=== PATIENT | female | born 1955 | race Caucasian/White ===

== ENCOUNTER → 2020-12-24 03:08 | Outpatient (CLI) | payer MEDICARE, SELFPAY ==
[2020-12-25 01:36] LABS: SARS-CoV-2 RNA PCR Negative
== END ==
PROVIDERS: PCP Internal Medicine; Visit Provider Internal Medicine Gastroenterology
DX: Z01.812 Encounter for preprocedural laboratory examination (principal); Z20.822 Contact with and (suspected) exposure to COVID-19
CPT/HCPCS: C9803; U0003; U0005

== ENCOUNTER 2020-12-28 01:31 | Day surgery (SDC) | payer MEDICARE, SELFPAY ==
[2020-12-16 14:51] VITALS: BMI 32.5
--- NOTE | 2020-12-27 16:32 | PM.HPGS ---
History of Present Illness History of Present Illness Consent: Risks, benefits, and alternatives have been discussed and questions answered. Patient agrees to proceed with procedure. Chief complaint: hx of colon polyps Narrative: Jenna Gillette is a 65 year old female with a history of colon polyps. She had a large sessile polyp and several smaller polyps removed 2 years ago . Review of Systems Review of Systems: All systems reviewed & are unremarkable except as noted in HPI and below PMFSH Social History Social History Smoking packs per day: 1 Smoking cigarettes per day: 20.0 Years smoked: 33 Smoking pack-years: 33.00 Smoking status: Current every day smoker Tobacco type: cigarettes Living arrangements: with family Gender identity (if verbalized by the patient): Female Spiritual care concerns: No Meds Home Medications and Allergies Home Medications Medication Instructions Recorded Confirmed Type sodium,potassium,mag sulfates See Rx Instructions .ROUTE 11/29/20 Rx [Suprep Bowel Prep Kit] .COMPLEX #1 ml PreserVision AREDS-2 1 cap BYMOUTH BID 12/16/20 12/16/20 History amlodipine 5 mg PO DAILY 12/16/20 12/16/20 History carvedilol 12.5 mg PO BID 12/16/20 12/16/20 History fosinopril 40 mg PO DAILY 12/16/20 12/16/20 History hydrochlorothiazide 12.5 mg PO DAILY 12/16/20 12/16/20 History pravastatin 40 mg PO DAILY 12/16/20 12/16/20 History Allergies Allergy/AdvReac Type Severity Reaction Status Date / Time No Known Allergies Allergy Mild Verified 12/16/20 14:43 Exam Const: General: alert Orientation/consciousness: patient oriented x3 Resp: Auscultation: clear to auscultation bilaterally Cardio: Rhythm: regular rhythm GI: GI Palp: Yes Soft to palpation and No Tenderness to palpation present (GI) Neuro: General: patient oriented x3 Assessment and Plan Assessment and plan (1) Colon cancer screening: Code(s): Z12.11 - Encounter for screening for malignant neoplasm of colon Status: Acute Assessment and Plan: Colonoscopy with possible biopsy or polypectomy or cautery or injection of substances.
--- NOTE | 2020-12-28 07:47 | WPDANESEPPF ---
Anes - Initial Pre Proc Eval Procedure: Operation Date: 12/28/20 08:30 Proposed Procedures p Screening Colonoscopy - Tima Fields MD Date/Time: 12/28/20 07:47 Surgeon: Tima Fields MD Pre Op Diagnosis: hx of colon polyps Patient Data Age: 65 Gender: F Height: 1.73 m Weight: 97.2 kg Allergies Allergy/AdvReac Type Severity Reaction Status Date / Time No Known Allergies Allergy Mild Verified 12/28/20 07:47 Home Medications Medication Instructions Recorded Confirmed Type sodium,potassium,mag sulfates See Rx Instructions .ROUTE 11/29/20 Rx [Suprep Bowel Prep Kit] .COMPLEX #1 ml PreserVision AREDS-2 1 cap BYMOUTH BID 12/16/20 12/16/20 History amlodipine 5 mg PO DAILY 12/16/20 12/16/20 History carvedilol 12.5 mg PO BID 12/16/20 12/16/20 History fosinopril 40 mg PO DAILY 12/16/20 12/16/20 History hydrochlorothiazide 12.5 mg PO DAILY 12/16/20 12/16/20 History pravastatin 40 mg PO DAILY 12/16/20 12/16/20 History Patient hx anesthesia problems: none Family hx anesthesia problems: none [facility] Past Medical History Medical History (Updated 12/28/20 @ 07:48 by Andrew Love DO) Hyperlipidemia Hypertension Surgical History Surgical History (Updated 12/28/20 @ 07:48 by Andrew Love DO) History of tubal ligation Social History Social History Smoking packs per day: 1 Smoking cigarettes per day: 20.0 Years smoked: 33 Smoking pack-years: 33.00 Smoking status: Current every day smoker Tobacco type: cigarettes Living arrangements: with family Gender identity (if verbalized by the patient): Female Spiritual care concerns: No Anes - Eval Final PreProcedure Day of Procedure 12/28/20 07:47 Patient weight: obese Heart: regular rate and rhythm Lungs: clear to auscultation and normal air movement Airway: Mallampati scale class II Neurological: alert and oriented Last oral intake: >/= 8 hours ASA classification: III Emergent: no Anesthetic plan: proceed Anesthesia type and monitoring: general GIVS and standard monitoring Informed Consent: The patient's anesthetic plan and its attendant risks and benefits were discussed with the patient/family/POA. Questions were solicited and answers provided to the satisfaction of the patient/family/POA.
[2020-12-28 07:50] VITALS: BP 138/75; PULSE 76; RESP 16; TEMP 36.4; O2SAT 100; BMI 32.3
[2020-12-28] MEDS: LACTATED RINGERS 1,000 ML 150 ML IV CONT (07:57)
[2020-12-28 08:35] VITALS: BP 99/50; PULSE 72; RESP 18; O2SAT 98
[2020-12-28 08:45] VITALS: BP 90/58; PULSE 68; RESP 20; O2SAT 98
[2020-12-28 08:55] VITALS: BP 106/81; PULSE 67; RESP 19; O2SAT 98
== END 2020-12-28 09:05 | disposition home or self-care (01) ==
PROVIDERS: PCP Internal Medicine; Visit Provider Internal Medicine Gastroenterology
PROC: 0DJD8ZZ Inspection of Lower Intestinal Tract, Via Natural or Artificial Opening Endoscopic (ICD-10-PCS; CPT 45378; principal; 2020-12-28 08:30)
DX: Z12.11 Encounter for screening for malignant neoplasm of colon (principal); D12.2 Benign neoplasm of ascending colon; I10 Essential (primary) hypertension; E78.49 Other hyperlipidemia; F17.210 Nicotine dependence, cigarettes, uncomplicated; E66.9 Obesity, unspecified; Z68.32 Body mass index [BMI] 32.0-32.9, adult
CPT/HCPCS: 45385; 88305; C9803; J2704; J7120; U0003; U0005

== ENCOUNTER 2023-05-26 19:34 | Emergency (ER) | payer MEDICARE, SELFPAY ==
[2023-05-26] VITALS (10 sets, daily range): BP systolic 93–118; BP diastolic 57–63; PULSE 71–84; RESP 16–23; TEMP 36.7; O2SAT 98–100
--- NOTE | ~2023-05-26 | CT_ITS ---
EXAMINATION: CT abdomen pelvis w con DATE: 05/26/2023 20:51 INDICATION: abdominal pain, diarrhea TECHNIQUE: Computed tomography (CT) of the abdomen and pelvis was performed with 100 mL Omnipaque-350 intravenous contrast. Automated exposure control and iterative reconstruction technique were employe d. The dose-length product was 1429.32 mGy-cm. COMPARISON: None. FINDINGS: Lower thorax: Aortic, mitral, and coronary artery calcifications. Dependent atelectasis and scar. Liver: Normal. Biliary/Gallbladder: Gallbladder is normal. No bile duct dilation. Pancreas: Mild atrophy. Spleen: Normal. Adrenals:No mass. Kidneys: Mild perinephric stranding bilaterally. Curvilinear and linear densities in multiple bilater al renal calyces and the bilateral renal pelvises, may represent calcifications or more likely early contrast excretion. No hydronephrosis. No calcifications in the distal collecting system. Multiple bi lateral hypodensities, too small to characterize but most likely represent cysts. GI tract: No small or large bowel dilation. Appendix not confidently visualized. Mesentery/Peritoneum: No ascites, mass, or free air. Retroperitoneum: No mass. Pelvis: Gas bubble in the nondependent urinary bladder. No wall thickening/inflammation. Normal uteru s and bilateral ovaries. Soft Tissues: Uncomplicated appearing fat-containing supraumbilical and umbilical hernias. Bones: No acute osseous finding. IMPRESSION: Gas bubble in the urinary bladder, may be secondary to cystitis or recent catheterization. Otherwise, no acute abdominal pelvic process detected. Reviewed, dictated and finalized at location [facility] [employer] [employer] IMPRESSION: Gas bubble in the urinary bladder, may be secondary to cystitis or recent benito terization. Otherwise, no acute abdominal pelvic process detected.
[2023-05-26 19:53] LABS: Basophils Absolute Auto 0.1 K/mm3 (0.0-0.1); Basophils Percent Auto 0.4 % (0.2-1.2); Eosinophils Absolute Auto 0.2 K/mm3 (0-0.3); Eosinophils Percent Auto 1.4 % (0-4.4); Hematocrit 40.9 % (37.0-47.0); Immature Granulocyte Absolute 0.08 K/mm3 (0.00-0.031); Immature Granulocyte Percent A 0.5 % (0-0.5); Lymphocytes Absolute Auto 2.74 K/mm3 (0.9-3.2); Lymphocytes Percent Auto 17.2 % (18.3-44.2); Mean Corpuscular HGB Conc 31.8 g/dl (32-36); Mean Corpuscular Hemoglobin 29.8 pg (26-34); Mean Corpuscular Volume 93.8 fl (80-100); Mean Platelet Volume 10.8 fl (7.4-10.4); Monocytes Absolute Auto 1.9 K/mm3 (0.1-0.6); Monocytes Percent Auto 11.8 % (2.6-8.5); Neutrophils Percent Auto 68.7 % (45.5-73.1); Platelet Count Result 299 k/mm3 (150-375); Red Blood Count 4.36 M/mm3 (4.2-5.4); Red Cell Distribution Width 13.9 % (11.5-14.5)
[2023-05-26] MEDS: SODIUM CHLORIDE 0.9% IV 1,000 ML 999 ML IV CONT ×2 (20:10)
[2023-05-26] MEDS: ONDANSETRON INJ 4 MG/2 ML VIAL IV PUSH (20:10)
[2023-05-26 20:27] LABS: Alanine Aminotransferase 18 U/L (6-35); Albumin Level 3.9 g/dL (3.5-5.1); Alkaline Phosphatase 76 U/L (38-126); Anion Gap 6 mmol/L (8-16); Aspartate Amino Transferase 18 U/L (14-36); Bilirubin,Total 0.8 mg/dL (0.2-1.3); Blood Urea Nitrogen 12 mg/dL (7-17); Calcium 8.7 mg/dL (8.4-10.2); Carbon Dioxide 27 mmol/L (22-30); Chloride 102 mmol/L (98-107); Estimated CRCL calculation 75 ml/min; Estimated Glomerular Filt Rate > 60; Glucose 120 mg/dL (65-110); Lipase 70 U/L (23-300); Potassium 3.8 mmol/L (3.4-5.0); Sodium 135 mmol/L (137-145)
[2023-05-26 20:49] LABS: Lactic Acid Reflex 0.8 mmol/L (0.7-2.0)
--- NOTE | 2023-05-26 21:16 | ED.GENADULT ---
HPI - General Adult General Chief complaint: Nausea/Vomiting/Diarrhea Stated complaint: diarrhea Time Seen by Provider: 05/26/23 19:44 History of Present Illness HPI narrative: Patient is a 67-year-old female who presents emergency department with chief complaint of diarrhea. Patient reports for the last week she has been having multiple bouts of diarrhea patient reports that she has had some abdominal discomfort with this denies vomiting reports today she was getting lightheaded and felt as though she was going to pass out. Related Data Home Medications Medication Instructions Recorded Confirmed amlodipine 5 mg tablet 5 mg PO DAILY 12/16/20 12/16/20 carvedilol 12.5 mg tablet 12.5 mg PO BID 12/16/20 12/16/20 fosinopril 40 mg tablet 40 mg PO DAILY 12/16/20 12/16/20 hydrochlorothiazide 12.5 mg capsule 12.5 mg PO DAILY 12/16/20 12/16/20 mecobalamin (vitamin B12) 500 mcg mcg PO 04/25/23 chewable tablet multivitamin with minerals-folic tablet PO 04/25/23 acid 0.4 mg tablet (One-A-Day Women's 50 Plus) rosuvastatin 20 mg tablet 20 mg PO DAILY 04/25/23 vitamins A,C,J-hnsa-nqloev 4,296 1 cap PO BID 04/25/23 mcg-226 mg-90 mg capsule (PreserVision AREDS) Allergies Allergy/AdvReac Type Severity Reaction Status Date / Time No Known Allergies Allergy Mild Verified 05/26/23 19:40 Review of Systems Review of Systems: A 10 system review of systems was completed on the patient and is negative except for what is stated in the HPI. Nursing and ancillary documentation was reviewed. [facility] Past Medical History Medical History Hyperlipidemia Hypertension Macular degeneration Surgical History Surgical History History of tubal ligation Family History Family History Mother Hypertension Cancer Father Hypertension Cancer Sibling Hypertension Cancer Social History Social History Smoking packs per day: 1 Smoking cigarettes per day: 20.0 Years smoked: 33 Smoking pack-years: 33.00 Smoking status: Current every day smoker Tobacco type: cigarettes Alcohol intake: never Substance use type: does not use Do You Feel Safe in your Home?: Yes Lack of Transportation: No Lack of Food: Never True Current Housing: I Have Housing Concerned About Future Housing: No Difficulty Paying Gas/Electric Bills: No Difficulty Paying for Meds: No Currently Unemployed: No Education: Associate Degree Difficulty w/ Childcare or Family Care: No Living arrangements: with family Occupation/Education: retired Gender identity (if verbalized by the patient): Female Spiritual care concerns: No Exam Narrative: GENERAL: Well-appearing, well-nourished, and in no acute distress. HEAD: Normocephalic, atraumatic. EYES: PERRLA and EOMI. ENT: Nares clear, no rhinorrhea or epistaxis. Mucous membranes moist. NECK: Supple. CHEST: Clear to auscultation. No respiratory distress. HEART: Regular rate and rhythm. No murmur heard. Normal peripheral pulses. ABDOMEN: Soft, mild tenderness to palpation, nondistended, normal active bowel sounds. EXTREMITIES: Normal range of motion. No edema. SKIN: Warm, dry, no rash. NEURO: No focal deficits. Alert and oriented x3. PSYCH: Normal mood and affect. Course Vital Signs Vital signs: Vital Signs Temperature 36.7 C 05/26/23 19:32 Pulse Rate 76 05/26/23 19:32 Respiratory Rate 19 05/26/23 19:32 Blood Pressure 118/63 05/26/23 19:32 Pulse Oximetry 99 05/26/23 19:32 Oxygen Delivery Room Air 05/26/23 19:32 Temperature 36.7 C 05/26/23 19:32 Pulse Rate 84 05/26/23 21:45 Respiratory Rate 18 05/26/23 21:45 Blood Pressure 115/62 05/26/23 21:16 Pulse Oximetry 100 05/07
[2023-05-26 21:41] LABS: Appearance Urine Clear (Clear); Bacteria Urine None Seen /hpf; Bilirubin Urine Negative (Negative); Blood Urine Negative (Negative); Color Urine Yellow (Yellow); Glucose Urine UA Negative (Negative); Ketones Urine Negative (Negative); Leukocyte Esterase Ur 2+ LEU/UL (Negative); Nitrate Urine Negative (Negative); Non Pathogenic Casts 0-2; Protein Urine Negative (Negative); Specific Grav Ur 1.027 (1.001-1.035); Squamous Epithelial Cell Urine None seen /hpf (Few); Urobilinogen Urine 0.2 mg/dL (<2.0); WBC Urine 21-50 /hpf; pH Urine 7.5 (5.0-9.0)
[2023-05-26 22:07] LABS: Add Urine Microscopic? YES
[2023-05-26] MEDS: CIPROFLOXACIN 500 MG TAB PO (22:41)
== END 2023-05-26 22:47 | disposition home or self-care (01) ==
PROVIDERS: Emergency Provider Emergency Medicine; PCP Internal Medicine
DX: N39.0 Urinary tract infection, site not specified (principal); R19.7 Diarrhea, unspecified; E78.5 Hyperlipidemia, unspecified; I10 Essential (primary) hypertension; H35.30 Unspecified macular degeneration; F17.210 Nicotine dependence, cigarettes, uncomplicated
CPT/HCPCS: 36415; 74177; 80053; 81001; 83605; 83690; 85025; 87086; 96361; 96374; 99284; A9270; J2405; J7030; Q9967

== ENCOUNTER 2024-10-18 12:59 | Outpatient (CLI) | payer MEDICARE, SELFPAY ==
--- NOTE | ~2024-10-18 | XR_ITS ---
Lumbosacral Spine: AP and lateral views Clinical History: Pain Findings: There is dextroscoliosis, apex at L2. There is moderate to advanced degenerative tearing th roughout the lumbar spine. There is moderate to dense facet arthropathy throughout the lumbar spine, worst from L3 through S1. The sacroiliac joints are normally outlined. Impression: Advanced degenerative spondylosis, as above, with associated dextro scoliosis. Reviewed, dictated and finalized at location M. Impression: Advanced degenerative spondylosis, as above, with associated dextro scoliosis.
--- OUTSIDE RECORDS SUMMARY | 2024-10-18 13:05 | XMS_ITS | Encounter Summary ---
Author Organization [facility] Address [address] [place] [address] Care Team Providers Care [employer] E[employer]ctor Name Role Phone Laith Kumar MD Primary Care Provider [phone] Encounter Details Date Type Department Care Team (Late st Contact Info) Description 10/03/2022 Lab Requisition [facility] - DermPath Lab [address] [place] [id number] Stan Mckeon MD [address] [place] [address] Social History Tobacco Use Types Packs/Day Years Used Date Smoking Tobacco: Never Assessed Comments Unknown Sex and Gender Information Value Date Recorded Sex Assigned at Not on file Legal Sex Female 6:03 PM [employer]IN[employer] Gender Identity Not on file Sexual Orientation Not on file documented as of this encounter Plan of Treatment Not on file documented as of this encounter Procedures Procedure Name Priority Date/Time Associated Diagnosis Comments DERMATOPATHOLOGY Routine 10/02/2022 12:0 0 AM CDT documented in this encounter Results * DERMATOPATHOLOGY (10/02/2022 12:00 AM CDT) Case Report Dermatopathology Report Case: [id number] Authorizing Provider: Stan Mckeon MD Collected: 10/02/2022 12:00 AM Ordering Location: [facility] DermPath Lab Received: 10/04/2022 06:40 AM Pathologist: Harmony Dempsey MD Specimens: A) - Skin, left frontal scalp B) - Skin, right occipital scalp 12:30 PM CDT DERMATOPATHOLOGY LABORATORY Final Diagnosis Specimen A. SKIN, left frontal scalp: BASAL CELL CARCINOMA, NODULAR TYPE (C44.41) Specimen B. SKIN, right occipital scalp: BASAL CELL CARCINOMA, NODULAR TYPE (C44.41) 3 12:30 PM CDT DERMATOPATHOLOGY LABORATORY at 1230 CDT Clinical History A: R/O BCC B: R/O Scar vs Marni vs BCC vs SCC 12:30 PM CDT DERMATOPATHOLOGY LABORATORY Gross Description Specimen A: Received is one formalin filled container labeled with the patient's name and designated left frontal scalp. The specimen consists of a shave biopsy measuring 9x10x2 mm. Jar 0. Specimen B: Received is one formalin filled container labeled with the patient's name and designated right occipital scalp. The specimen consists of a shave biopsy measuring 7x6x2 mm. Jar 0. 3 12:30 PM CDT DERMATOPATHOLOGY LABORATORY Microscopic Description Specimen A. SKIN, left frontal scalp: Within the dermis there are aggregates of basaloid cells with a high nuclear to cytoplasmic ratio and peripheral palisading. Specimen B. SKIN, right occipital scalp: Within the dermis there are aggregates of basaloid cells with a high nuclear to cytoplasmic ratio and peripheral palisading. 12:30 PM CDT DERMATOPATHOLOGY LABORATORY Disclaimer An external and internal positive and negative controls are appropriate for the histochemical, immunohistochemical and immunofluorescence stain(s) in this case (if any), except where stated explicitly. The performance characteristics of the stain(s) cited in this report were developed and its performance characteristic determined by the Dermatopathology Laboratory at [facility], directed by Dr. Jyotsna Escalona. These tests need not be, and therefore are not, approved by the [place] Food and Drug Administration. The tests are used for clinical purposes. Billing Codes Specimen Charges Stain Charges 50068 48925 1 1 3 12:30 PM CDT DERMATOPATHOLOGY LABORATORY Embedded Images 12:30 PM CDT DERMATOPATHOLOGY LABORATORY Pathology/Cytology TISSUE SPECIMEN FROM SKIN / Unknown 10/02/2022 10/04/2022 6:40 AM CDT Miscellaneous samples (specimen) TISSUE SPECIMEN FROM SKIN / Unknown 10/02/2022 10/04/2022 6:40 AM CDT Stan Mckeon MD LAB - PATHOLOGY/CYTOLOGY ORD ERABLES Final Result DERMATOPATHOLOGY LABORATORY [facility] - Department of Dermatology [facility] Medicine [address] [place] [address], [address] [phone] documented in this encounter Visit Diagnoses Not on filedocumented in this encounter Care Teams [employer] Relationship Specialty Start Date End Date Laith Kumar MD [address] [place] [address] [address] [place] [address] PCP - General 01/25/11 documented as of this encounter
--- OUTSIDE RECORDS SUMMARY | 2024-10-18 13:06 | XMS_ITS | CONTINUITY OF CARE DOCUMENT ---
Author Name anatoly ledbetter Address Unknown Organization [facility] Address [address] [place] [address] Phone [phone] Care Team Providers Care Clinical Professor Name Role Phone Nia GREY, Cedric Unavailable MILANA GREY, HAYLEY Unavailable MILANA GREY, HAYLEY Unavailable PROBLEMS Condition Status Date Provider Notes Palpitations active Cedric Kramer MD HTN essential active Cedric Kramer MD Hyperlipidemia active Cedric Kramer MD Hypertension active ? Cedric Kramer MD Tobacco abuse active Cedric Kramer MD Coronary arteriosclerosis active Cedric calderon MD Fatigue active Cedric Kramer MD Edema active Cedric Kramer MD Cardiology examination active Cedric Kramer MD Snoring active Cedric Kramer MD ENCOUNTERS Date Type Provider Location Encounter Diag nosis - In-person encounter Office Visit Cedric Kramer MD [facility] Cardiology examinationSnoring - In-person encounter Office Visit Cedric Kramer MD [facility] Edema - In-person encounter Office Visit Cedric Kramer MD [facility] - In-person encounter Office Visit Cedric Kramer MD [facility] - In-person encounter Office Visit Cedric Kramer MD [facility] Coronary arteriosclerosisFatigue - In-person encounter Office Visit Cedric Kramer MD [facility] - In-person encounter Office Visit Cedric Kramer MD [facility] - In-person encounter Office Visit Cedric Kramer MD [facility] - In-person encounter Office Visit Cedric Kramer MD [facility] - In-person encounter Office Visit Cedric Kramer MD [facility] PalpitationsHTN essentialHyperlipidemiaHypertensionTobacco abuse VITAL SIGNS Date Observation Value Provider Body Mass Index (Ratio) 34.21 kg/m2 Sarwat Kramer MD blood pressure, diastolic 87 mm[Hg] [facility], systolic 151 mm[Hg] [facility] oxygen saturation, oximetry 98 % [facility] pulse rate 67 /min [facility] respiratory rate E&M 12 /min [facility] weight E&M 225 [lb_av] [facility] height E&M 68 [in_i] [facility] blood pressure, cuff size regular [facility] Body Mass Index (Ratio) 33.30 kg/m2 Sarwat Kramer MD blood pressure, diastolic 79 mm[Hg] Li nkLogic blood pressure, systolic 135 mm[Hg] Penny kLog blood pressure, cuff size regular Aryan rret blood pressure, diastolic 79 mm[Hg] Ja rret blood pressure, systolic 135 mm[Hg] Jar ret pulse rate 68 /min Ilan oxygen saturation, oximetry 98 % respiratory rate E&M 16 /min Ilan weight E&M 219 [lb_av] Ilan y height E&M 68 [in_i] Ilan Cotterjohnnie y Body Mass Index (Ratio) 33.90 kg/m2 Sarwat Kramer MD blood pressure, diastolic -1 mm[Hg] Chayo josephLogsheba blood pressure, systolic 145 mm[Hg] Penny Castañedaogsheba blood pressure, diastolic 83 mm[Hg] Mihaela ck Shelley blood pressure, systolic 145 mm[Hg] Toshia Shelley oxygen saturation, oximetry 98 % Linsey Shelley pulse rate 85 /min Linsey Shelley weight E&M 223 [lb_av] Linsey Shelley blood pressure, cuff size large An ck Shelley height E&M 68 [in_i] Linsey Shelley Body Mass Index (Ratio) 33.90 kg/m2 Sarwat Kramer MD blood pressure, diastolic 62 mm[Hg] Ra tess Kramer MD blood pressure, systolic 124 mm[Hg] Elmer Conteh oxygen saturation, oximetry 97 % Carlee Conteh respiratory rate E&M 18 /min Cal Conteh pulse rate 75 /min Carlee Easton egan blood pressure, cuff size regular Pat Conteh weight E&M 223 [lb_av] Elmerryder Easton eagn height E&M 68 [in_i] Carlee egan Body Mass Index (Ratio) 33.14 kg/m2 Sarwat Kramer MD blood pressure, diastolic 78 mm[Hg] Chayo Francisco blood pressure, systolic 136 mm[Hg] Penny kLogic blood pressure, diastolic 78 mm[Hg] Sa ra Wasserman blood pressure, systolic 136 mm[Hg] Angeles a Wasserman oxygen saturation, oximetry 98 % Vera Wasserman respiratory rate E&M 17 /min Vera Si ms pulse rate 77 /min Vera Wasserman blood pressure, cuff size regular Sa ra Wasserman weight E&M 218 [lb_av] Vera Wasserman height E&M 68 [in_i] Vera Wasserman Body Mass Index (Ratio) 33.60 kg/m2 Sarwat Kramer MD blood pressure, diastolic 77 mm[Hg] David Campbell blood pressure, systolic 137 mm[Hg] Leslee Campbell blood pressure, cuff size regular Cy sal Campbell respiratory rate E&M 16 /min Amanda Campbell pulse rate 90 /min Amanda Jauregui l oxygen saturation, oximetry 97 % Amanda Campbell weight E&M 221 [lb_av] Amanda Colesbel l height E&M 68 [in_i] Amanda Sanketbel l Body Mass Index (Ratio) 32.99 kg/m2 Sarwat Kramer MD blood pressure, diastolic 87 mm[Hg] Ra tess Kramer MD blood pressure, systolic 152 mm[Hg] Quinn Kramer MD respiratory rate E&M 18 /min Tonsha Cohen oxygen saturation, oximetry 97 % Tonsha Cohen pulse rate 106 /min Tonsha Cohen weight E&M 217 [lb_av] Tonsha Cohen height E&M 68 [in_i] Tonsha Cohen Body Mass Index (Ratio) 32.54 kg/m2 Sarwat Kramer MD blood pressure, diastolic 82 mm[Hg] Da rere Ade blood pressure, systolic 154 mm[Hg] Dac ia Ade oxygen saturation, oximetry 97 % Michelle Ade respiratory rate E&M 16 /min Michelle V oss pulse rate 72 /min Michelle Ade weight E&M 214 [lb_av] Michelle Ade height E&M 68 [in_i] Michelle Ade Body Mass Index (Ratio) 32.20 kg/m2 Sarwat Kramer MD blood pressure, diastolic 86 mm[Hg] Shayan Joel blood pressure, systolic 159 mm[Hg] Shakila Joel oxygen saturation, oximetry 98 % Sherwin Joel respiratory rate E&M 18 /min Pranay Joel pulse rate 73 /min Sherwin Arcadio andrews weight E&M 211.8 [lb_av] Sherwin Raimundo davisbrittney height E&M 68 [in_i] Sherwin Arcadio andrews Body Mass Index (Ratio) 31.35 kg/m2 Sarwat Kramer MD blood pressure, resting Yes Luz Maria Joel blood pressure, diastolic 105 mm[Hg] Shayan Joel blood pressure, systolic 189 mm[Hg] Shakila Joel oxygen saturation, oximetry 97 % Sherwin Joel respiratory rate E&M 18 /min Pranay Joel pulse rate 103 /min Sherwin Steve andrews weight E&M 206.2 [lb_av] Sherwin pineda height E&M 68 [in_i] Sherwin Ervin lettybrittney ALLERGIES No Known Drug Allergies HISTORY OF MEDICATION USE Medication Status Instructions Dates Provider Indications Com ments rosuvastatin 20 mg tablet active Take 1 tablet by mouth once a day Ilan fosinopril 40 mg tablet active TAKE 1 TABLET BY MOUTH DAILY Shelly Rushirea carvedilol 12.5 mg tablet active TAKE 1 TABLET BY MOUTH TWICE DAILY Shelly Rushirea PRESERVISION AREDS 2+MULTI VIT CAPS active once a day Sherwin Eubanksenson carvedilol 12.5 mg tablet completed Take 1 tablet by mouth twice a day - Luis Nunn MULTIVITAMINS ORAL CAPSULE active 1 tablet once a day Sherwin Joel hydrochlorothiazide 12.5 mg capsule active 1 tablet once a day Sherwintejal Joel pravastatin 40 mg tablet completed 1 tablet once a day - Ilan fosinopril 40 mg tablet completed Take 1 tablet by mouth once a day - Luis Nunn SOCIAL HISTORY Date Observation Value Provider alcohol use no Cedric [place] passive cigarette sm jignesh exposure yes Cedric Kramer MD smoking/tobacco cess ation, patient education and counseling yes Cedric Kramer MD number of years as a smoker 30 a Cedric Kramer MD smoking history, tot al pack/day 1 Cedric Kramer MD cigarette use yes Cedric Kramer MD smoking status Current every day smoker R sal Kramer MD alcohol use no Cedric [place] passive cigarette sm jignesh exposure yes Cedric Kramer MD smoking/tobacco cess ation, patient education and counseling yes Cedric Kramer MD number of years as a smoker 30 a Cedric Kramer MD smoking history, tot al pack/day 1 Cedric Kramer MD cigarette use yes Cedric Kramer MD smoking status Current every day smoker R sal Kramer MD social history E&M Marital Statu s: C nathan: 2 O ccupation: Retired Smoking History: P atient currently smokes every day. P atient has been counseled to quit. Cedric Kramer MD social history reviewed E&M revi ewed - no changes required Cedric Kramer MD passive cigarette sm jignesh exposure yes Linsey Karsten smoking/tobacco cess ation, patient education and counseling yes Linsey Karsten number of years as a smoker 30 a Linsey Karsten smoking history, tot al pack/day 1 Linsey Karsten cigarette use yes Linsey Karsten smoking status Current every day smoker A rex Karsten social history reviewed E&M revi ewed - no changes required Cedric Kramer MD social history reviewed E&M revi ewed - no changes required Cedric Kramer MD social history E&M Marital Statu s: Kwame evans: 2 O ccupation: Retired Smoking History: P atient currently smokes every day. P atient has been counseled to quit. Cedric Kramer MD social history reviewed E&M revi ewed - no changes required Cedric Kramer MD passive cigarette sm jignesh exposure yes Amanda Adrian smoking/tobacco cess ation, patient education and counseling yes Amandareinaldo Campbell number of years as a smoker 30 a Amandareinaldo Campbell smoking history, tot al pack/day 1 Amanda Adrian cigarette use yes Amandasamantha almonte smoking status Current every day smoker Kwame yadiel Campbell social history E&M Marital Statu s: Kwame forrestyarelis: 2 O ccupation: Retired Smoking History: P atient currently smokes every day. P atient has been counseled to quit. Cedric Kramer MD social history reviewed E&M revi ewed - no changes required Cedric Kramer MD passive cigarette sm jignesh exposure yes Page Cohen smoking/tobacco cess ation, patient education and counseling yes [facility] number of years as a smoker 30 a [facility] smoking history, tot al pack/day 1 [facility] cigarette use yes [facility] smoking status Current every day smoker [facility] social history E&M Marital Statu s: Kwame evans: 2 O ccupation: Retired Smoking History: P atient currently smokes every day. P atient has been counseled to quit. Cedric Kramer MD social history reviewed E&M revi ewed - no changes required Cedric Kramer MD alcohol use no Michelle Ade smoking/tobacco cess ation, patient education and counseling yes Michelle Ade passive cigarette sm jignesh exposure yes Michelle Ade number of years as a smoker 30 a Michelle Ade smoking history, tot al pack/day 1 Michelle Ade cigarette use yes Michelle Ade smoking status Current every day smoker D ia [place] social history E&M Marital Statu s: Kwame evans: 2 O ccupation: Retired Smoking History: P atient currently smokes every day. P atient has been counseled to quit. Cedric Kramer MD social history reviewed E&M revi ewed - no changes required Cedric Kramer MD alcohol use no Sherwin sparrow smoking/tobacco cess ation, patient education and counseling yes Sherwin Joel passive cigarette sm jignesh exposure yes Sherwin Joel number of years as a smoker 30 a Sherwin Joel smoking history, tot al pack/day 1 Sherwin Joel cigarette use yes Sherwin pineda smoking status Current every day smoker M Joey Joel alcohol use no Cedric [place] passive cigarette sm jignesh exposure yes Cedric Kramer MD smoking/tobacco cess ation, patient education and counseling yes Cedric Kramer MD smoking history, tot al pack/day 1 Cedric Kramer MD social history E&M S moking History: P atient currently smokes every day. M arital Status: C nathan: 2 O ccupation: Retired Cedric Kramer MD social history reviewed E&M revi ewed - no changes required Cedric Kramer MD number of years as a smoker 30 a Sherwin Joel cigarette use yes Sherwin davisbrittney smoking status Current every day smoker M Joey Joel FAMILY HISTORY Family Member Condition Full Sister Family History of Di abetes: Full Brother Family History of Di abetes: INSURANCE PROVIDERS Payer name Policy type / Coverage type [place] red green party ID AARP [facility] ADVANTAGE PLAN 2 (HMO-POS) Medicare [id number] ADVANCE DIRECTIVES Name Date DISCUSSED - NO DECISION MADE TREATMENT PLAN Date Name Performer [id number],S, Cedric toure MD [id number],S, Cedric toure MD [id number],S, Cedric toure MD [id number],S, Cedric toure MD [id number],S, Cedric toure MD [id number],S, Cedric toure MD [id number],S, Cedric toure MD [id number],S,Stress test n ormal. Cedric Kramer MD [id number],N,Check ECHO fo r WMA and valves. Cedric Kramer MD [id number],S, Cedric toure MD [id number],S, Cedric toure MD [id number],N,H as calcified coronaries on CT scan. Needs stress test. Can't walk do to knee problems. Will get regadenoson. Cedric Kramer MD Cardiology Cedric Kramer MD Cardiology:10/08/24 Q uit 01/27 Cedric Kramer MD Cardiology:10/08/24 N o angina or history CAD. H as calcium on cors by CT scan L ast stress test negative Cedric Kramer MD Cardiology:10/08/24 H as venous insufficiency, but edema resolved with stopping amlodipine. No intervention needed. Cedric Kramer MD Cardiology:BP runnin g a bit high at home as well. S noman, has not had a sleep study W ill check sleep study, work on diet. No med changes at this time Cedric Kramer MD Cardiology Cedric Kramer MD Cardiology Cedric Kramer MD Cardiology Cedric Kramer MD Cardiology:Will check for venous insufficiency. Cedric Kramer MD Cardiology Cedric Kramer MD Cardiology Cedric Kramer MD Cardiology Cedric Kramer MD Cardiology Cedric Kramer MD Cardiology Cedric Kramer MD Cardiology Cedric Kramer MD Cardiology Cedric Kramer MD Cardiology:Stress test normal. R sal Kramer MD Cardiology:Check ECHO for WMA an d valves. Cedric Kramer MD Cardiology Cedric Kramer MD Cardiology Cedric Kramer MD Cardiology:Has calci fied coronaries on CT scan. Needs stress test. Can't walk do to knee problems. Will get regadenoson. Cedric Kramer MD Cardiology follow up Cedric bryan MD Cardiology follow up Cedric bryan MD Cardiology follow up Cedric bryan MD Cardiology follow up Cedric bryan MD Cardiology Cedric Kramer MD Cardiology Cedric Kramer MD Cardiology Cedric Kramer MD Cardiology Cedric Kramer MD Cardiology follow up Cedric bryan MD Cardiology follow up Cedric bryan MD Cardiology follow up Cedric bryan MD Cardiology follow up:Increase fo sinopril Cedric Kramer MD Cardiology Cedric Kramer MD Cardiology Cedric Kramer MD Cardiology:Increase fosinopril R sal Kramer MD Cardiology Cedric Kraemr MD Cardiology Cedric Kramer MD Cardiology Cedric Kramer MD Cardiology Cedric Kramer MD Cardiology Cedric Kramer MD Date Name Sleep Study Home Venous Doppler Bilat eral LE - Reflux Complete Echo Stress Regadenoson STR - Nuclear Mobile Cardiac Tele Complete Echo HISTORY OF PROCEDURES Procedure Date Procedure Name Provider Procedure Notes S tatus EKG Cedric Kramer MD complete d EKG Cedric Kramer MD complete d EKG Cderic Kramer MD complete d EKG Cedric Kramer MD complete d EKG Cedric Kramer MD complete d EKG Cedric Kramer MD complete d EKG Cedric Kramer MD complete d SNOMED-CT: 649018716 [id number] Current Medications Documented Cedric Kramer MD completed Event Monitor Cedric Kramer MD compl eted EKG Cedric Kramer MD complete d SNOMED-CT: [id number] [id number] Current Medications Documented Cedric Kramer MD completed
--- OUTSIDE RECORDS SUMMARY | 2024-10-18 13:06 | XMS_ITS | Clinical Summary ---
Author Organization [facility] Address [address] [place] [address] Care Team Providers Care Extracorporeal Circulation Specialist Name Role Phone Laith Kumar MD Primary Care Provider [phone] Source Comments [facility],non-owned Affiliates and Associated Physician Practices is amultiple site organization consisting of ambulatory clinics and hospital sitesin [place], [place], [place] and [place]. This disclosure is being madepursuant to the Care Everywhere program and may not contain all information available regarding this patient. 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 Gender Identity Not on file Sexual Orientation Not on file Plan of Treatment Health Maintenance Due Date Last Done Comments BONE DENSITY TESTING 1954 COLOGUARD (AGES 45-75) - COL ON CA SCREENING 1954 COLON MONITORING 1954 COLONOSCOPY - COLON CA SCREENING 1954 CT COLONOGRAPHY - COLON CA SCREENING 1954 Colorectal Cancer Screening 1954 FIT - COLON CA SCREENING 1954 FLEX SIG - COLON CA SCREENING 1954 LIPID TESTING 1954 MAMMOGRAM 1954 HEPATITIS C SCREENING 08/26/1972 DTAP/TDAP/TD VACCINES (1 - Tdap) 1973 PNEUMOCOCCAL VACCINE 50+ (1 of 1 - PCV) 2004 ZOSTER VACCINE (1 of 2) 2004 COVID-19 VACCINE (2023-2 5 season) 2024 DEPRESSION SCREENING 05/06/2024 MEDICARE AWV CALENDAR YEAR 2024 INFLUENZA VACCINE (Season Ended) 2025 Respiratory Syncytial Virus (RSV) Vaccine Pt: or over 60 yrs (1 - 1-dose 75+ series) 2029 HEPATITIS B VACCINE Aged Out No longe r eligible based on patient's age to complete this topic HIB VACCINE Aged Out No longer eligi ble based on patient's age to complete this topic HPV VACCINE Aged Out No longer eligi ble based on patient's age to complete this topic MENINGOCOCCAL (Group B) VACC INE SHARED DECISION-MAKING Aged Out No longer eligibl e based on patient's age to complete this topic MENINGOCOCCAL GROUPS A/C/Y/W VACCINE Aged Out No longer eligible b ased on patient's age to complete this topic Procedures Procedure Name Priority Date/Time Associated Diagnosis Comments DERMATOPATHOLOGY Routine 09/24/2024 1:02 PM CDT from Last 3 Months Results * DERMATOPATHOLOGY (09/24/2024 1:02 PM CDT) Case Report Dermatopathology Report Case: [id number] Authorizing Provider: Debby Yates MD Collected: 09/24/2024 01:02 PM Ordering Location: [facility] - Received: 09/25/2024 10:06 AM DermPath Lab Pathologist: Carlito Escalona MD Specimen: Skin, left abdomen 5:29 PM CDT DERMATOPATHOLOGY LABORATORY Final Diagnosis Specimen A. SKIN, left abdomen: JUNCTIONAL MELANOCYTIC NEVUS, IRRITATED (D22.5) POST-INFLAMMATORY PIGMENT ALTERATION (L81.9) 5:29 PM CDT DERMATOPATHOLOGY LABORATORY at 1729 CDT Clinical History Brown Papule Irregular color/border Nevus R/O MM 5:29 PM CDT DERMATOPATHOLOGY LABORATORY Gross Description Specimen A: Received is one formalin filled container labeled with the patient's name and designated left abdomen. The specimen consists of a shave biopsy measuring 8x6x1 mm. Jar 0. 5:29 PM CDT DERMATOPATHOLOGY LABORATORY Microscopic Description Specimen A. SKIN, left abdomen: There are nests of melanocytes at the dermal-epidermal junction. There is melanin pigment in the stratum corneum. Sections show abundant melanin within melanophages around the superficial vascular plexus. 5:29 PM CDT DERMATOPATHOLOGY LABORATORY Disclaimer An external and internal positive and negative controls are appropriate for the histochemical, immunohistochemical and immunofluorescence stain(s) in this case (if any), except where stated explicitly. The performance characteristics of the stain(s) cited in this report were developed and its performance characteristic determined by the Dermatopathology Laboratory at [facility], directed by Dr. Jyotsna Escalona. These tests need not be, and therefore are not, approved by the [place] Food and Drug Administration. The tests are used for clinical purposes. Billing Codes Specimen Charges Stain Charges 32257 1 5 5:29 PM CDT DERMATOPATHOLOGY LABORATORY Embedded Images 5:29 PM CDT DERMATOPATHOLOGY LABORATORY Pathology/Cytolo gy TISSUE SPECIMEN FROM SKIN / Unknown 09/24/2024 1:02 PM CDT 09/25/2024 10:06 AM CDT Debby Yates MD LAB - PATHOLOGY/CYTOLOGY ORD ERABLES Final Result DERMATOPATHOLOGY LABORATORY [facility] - Department of Dermatology Formerly [facility] [address] [place] [address], [address] [phone] from Last 3 Months Insurance [facility] MANAGED MEDICARE [address]V [address], [place] [address] MANAGED MEDICARE ADV [place] [id number] Care Teams Extracorporeal Circulation Specialist Relationship Specialty Start Date End Date Laith Kumar MD [address] [place] [address] [address] [place] [address] PCP - General 01/25/11
--- OUTSIDE RECORDS SUMMARY | 2024-10-18 13:06 | XMS_ITS | Data Portability ---
Author Organization [facility], Main Office Address [address] [place] [address] Care Team Providers Care Master Ship Name Role Phone HAYLEY KUMAR Primary Care Provider HAYLEY KUMAR Referring Provider Assessment No assessment recorded. Plan of Treatment Reminders Order Date Submit Date Provider Last Modified By Organization Details Last Modified Time Details Appointments None recorded. Lab lipid panel, serum 2024 025 [facility], [address], [place], [address], 5 06:02:42 CMP, serum or plasma 2024 025 [facility], [address], [place], [address], 5 06:02:44 CBC w/ auto diff 2024 025 [facility], [address], [place], [address], 5 06:02:45 TSH, serum or plasma 2024 025 [facility], [address], [place], [address], 5 06:02:47 T4, free, serum 2024 025 [facility], [address], [place], [address], 5 06:02:46 vitamin D, 25-hydroxy, total, serum 2023 024 [facility], [address], [place], [address], 4 06:54:09 lipid panel, serum 2023 024 [facility], [address], [address], [place], [address], 4 06:54:07 CMP, serum or plasma 2023 024 [facility], [address], [place], [address], 4 06:54:08 TSH, serum or plasma 2023 024 [facility], [address], [address], [place], [address], 4 06:54:09 T4, free, serum 2023 024 [facility], [address], [address], [place], [address], 4 06:54:09 CBC w/ auto diff 2023 024 [facility], [address], [address], [place], [address], 4 06:54:08 enteric bacteria, organism specific culture, stool 2023 024 [email or web address] [facility] (Lab), [address] [place], [address], 4 16:12:50 c diff toxin genes, qual, PCR, stool 2023 024 [email or web address] [facility] (Lab), [address] [place], [address], 4 07:07:26 O&P (ova & parasites), stool 2023 024 [facility] [address] [place], [address], 4 15:17:56 inflammator y bowel disease Ab panel, serum 2023 024 [facility], [address], [address], [place], [address], 4 18:37:32 CBC w/ auto diff 2023 024 [facility], [address], [address], [place], [address], 4 18:37:35 CMP, serum or plasma 2023 024 [facility], [address], [address], [place], [address], 4 18:37:34 lipid panel, serum 2023 024 [facility], [address], [address], [place], [address], 4 18:37:31 Referral None recorded. Procedures None recorded. Surgeries None recorded. Imaging None recorded. Medication Orders furosemide 20 mg tablet [email or web address] [place] [address] [facility], [address] [place], [address], 5 17:14:43 Patient TargetsNo targets recorded. Patient Instructions Encounter Date Encounter Id Patient Instructions Last Modified By Organization Details Last Modified Time 05/28/2023 [id number] dementia rating scale-2* Not available 05/28/2023 16:10:16 alcohol misuse* [email or web address] Not available 05/28/2023 16:10:16 depression screening* [email or web address] Not available 05/28/2023 16:10:16 Timed Up and Go test (TUG)* Not available 05/28/2023 16:10:16 multi-dimensiona l health assessment questionnaire* Not available 05/28/2023 16:10:16 Personalized Hea lt Plan and Screening Recommendations Advance Directives - Do you have one? No not interested at this time Advance Directives - Do we have your advance directive on file in your health record? Primary Prevention/Interven tion (prevents or decreases the chance of common diseases from occurring) Smoking Risk: Smoker Alcohol Misuse Screening: Negative Weight: Overweight try to lose 10% of your body weight Physical activity: Need more exercise/physical activity Nutrition: Average Eat heart healthy diet Fall Risk (screened today): Intermediate Vaccines Pneumococcal: Recommended today, but you have declined Influenza: Recommended today, but you have declined Chronic Disease Risks Stroke: Intermediate Risk Active diagnosis, Continue current treatment plan Heart Attack: Intermediate Risk Active diagnosis, Continue current treatment plan Clogging of the Arteries: Intermediate Risk Active diagnosis, Continue current treatment plan Diabetes: Low Risk Secondary Prevention/Interven tion (detects treatable diseases before they may cause symptoms, disability, or ) Breast Cancer Screening with mammogram: Recommended today Cervical/Uterine/Ov beth Cancer Screening: No screening necessary Osteoporosis Screening: Up to date Date Screening Last Performed: Colon Cancer Screening: Colonoscopy Due 2025 Date Screening Last Performed: 2020 Eye Disease Screening: Goes every 6 months Dementia Risk: Low Depression Screening: Negative [email or web address] Not available 05/28/2023 16:07:48 [facility] stable. Follow-up diarrhea- hypertension-hyperl ipidemia -obesity class one. Plan at this time to check blood work consisting of CBC and cultures of the stool. In the Cipro for this point in time. Also check inflammatory bowel panels. Due for mammogram as well as low-dose CT scan of the chest. Follow-up in approximately two weeks. Portions of the record may have been created with voice recognition software. Occasional wrong-word or s ound-a-like substitutions may have occurred due to the inherent limitations of voice recognition software. Read the chart carefully and recognize, using context, where substitutions have occurred. mammogram Low-dose CT scan of the chest Keep Appt: Sat 10:20 AM Ksenia [email or web address] Not available 05/28/2023 16:09:52 06/21/2023 [id number] Hypertension -hyperlipidemia -Clostridium difficile colitis -obesity class one. All clinically stable. No need for any blood work at this time being continue on current Rx recheck back in six months. Portions of the record may have been created with voice recognition software. Occasional wrong-word or s ound-a-like substitutions may have occurred due to the inherent limitations of voice recognition software. Read the chart carefully and recognize, using context, where substitutions have occurred. [email or web address] Not available 06/21/2023 11:10:13 12/19/2023 [id number] Follow-up hypertension, hyperlipidemia, peripheral venous insufficiency and obesity class one all clinically stable. Check blood work consisting of CBC, CMP, lipid, thyroid and vitamin-D level. Will put on some furosemide 20 mg once daily and added to current regimen see there is any improvement in the swelling. Continue on current Rx follow-up in six months. Next Appointment: 6 Months Approximate Date: 06/16/2024 Portions of the record may have been created with voice recognition software. Occasional wrong-word or s ound-a-like substitutions may have occurred due to the inherent limitations of voice recognition software. Read the chart carefully and recognize, using context, where substitutions have occurred. [email or web address] Not available 12/19/2023 11:53:11 10/14/2024 [id number] Medicare well[facility] s evaluation risk assessment stable. Follow-up for essential hypertension, hyperlipidemia, low back strain and obesity class one. Obtain radiographic studies of the lumbar spine. Recheck blood pressure in approximately one week. Will set up for pulmonary functions and also needs a bone density scan and low-dose CT scan of the chest. Already has a follow-up appointment in December. Additional Orders - Directives - Recommendations 1. Bone density scan 2. pulmonary functions 3. x-rays of the lumbosacral spine Keep Appointment: [email or web address] 10:20 AM [place] Portions of record are template driven. When necessary additional context will be provided. Additionally some portions have been created with voice recognition software. Occasional wrong-word or s ound-a-like substitutions may have occurred due to the inherent limitations of voice recognition software. Read the chart carefully and recognize, using context, where substitutions may have occurred. Created: Hayley Kumar M.D. 10.14.2024 04:55 PM [email or web address] Not available 10/14/2024 17:55:42 Reason for Referral None Reported. Results Created Date Observation Date Name Description Value Unit Range Abnormal Flag Note LastModifiedBy Organization Detail LastModifiedTime 05/31/19 24 06/02/2023 CLOST RIDIU M DIFFI CILE TOXIN /GDH W/REF L TO PCR clostridium difficile toxin/gdh w/refl to PCR SEE NOTE abnormal CLOST RIDIU M DIFFI CILE TOXIN /GDH W/REF L TO PCR Micro Numbe r: [id number] Test Statu s: Final Speci men Sourc e: Stool Speci men Quali ty: Adequ ate GDH Antig en: Detec rodriguez Toxin A and B: Detec rodriguez COMME NT: Toxig enic C. diffi cile detec rodriguez For addit ional infor ion cortes e refer to http: //[facility] goldie toure.Que stDia gnost ics.c om/fa q/FAQ 136 (This link is being provi ded for infor rakel nal/e ducat ional purpo ses only. ) Not Available [address] [address] [place], [address], 06/02/2023 17:56:00 05/31/19 24 06/03/2023 GASTR OINTE YASMEEN L PATHO GEN PANEL , REAL TIME PCR campylobacte r group NOT DETECT ED not detect ed normal Not Available [facility] [address] [address] [place], [address], 06/03/2023 15:17:55 05/31/19 24 06/03/2023 GASTR OINTE YASMEEN L PATHO GEN PANEL , REAL TIME PCR salmonella species NOT DETECT ED not detect ed normal Not Available [facility] [address] [address] [place], [address], 06/03/2023 15:17:55 05/31/19 24 06/03/2023 GASTR OINTE YASMEEN L PATHO GEN PANEL , REAL TIME PCR shigella species NOT DETECT ED not detect ed normal Not Available [facility] - [address] [address] [place], [address], 06/03/2023 15:17:55 05/31/19 24 06/03/2023 GASTR OINTE YASMEEN L PATHO GEN PANEL , REAL TIME PCR vibrio group NOT DETECT ED not detect ed normal Not Available [facility] - [address] [address] [place], [address], 06/03/2023 15:17:55 05/31/19 24 06/03/2023 GASTR OINTE YASMEEN L PATHO GEN PANEL , REAL TIME PCR yersinia enterocoliti ca NOT DETECT ED not detect ed normal Not Available [facility] [address] [address] [place], [address], 06/03/2023 15:17:55 05/31/19 24 06/03/2023 GASTR OINTE YASMEEN L PATHO GEN PANEL , REAL TIME PCR shiga toxin 1 NOT DETECT ED not detect ed normal Not Available [facility] [address] [address] [place], [address], 06/03/2023 15:17:55 05/31/19 24 06/03/2023 GASTR OINTE YASMEEN L PATHO GEN PANEL , REAL TIME PCR shiga toxin 2 NOT DETECT ED not detect ed normal Not Available [facility] - [address], [address], 06/03/2023 15:17:55 05/31/19 24 06/03/2023 GASTR OINTE YASMEEN L PATHO GEN PANEL , REAL TIME PCR norovirus GI/gii NOT DETECT ED not detect ed normal Not Available [facility] - [address], [address], 06/03/2023 15:17:55 05/31/19 24 06/03/2023 GASTR OINTE YASMEEN L PATHO GEN PANEL , REAL TIME PCR rotavirus A NOT DETECT ED not detect ed normal Organ isms inclu ded in the [facility]y lob[facility] ter group inclu de C. coli, C. jejun i, and C. carolina. Organ isms inclu ded in the Shige lla speci es inclu de S. dysen teria e, S. boydi i, S. sonne i, and S. flexn genna. Organ isms inclu ded in the Vibri o group inclu de V. chi sean and V. parah aemol yticu s. The ricardo tical perfo rmanc e suki cteri stics of this assay have been deter mined by [facility]. The modif icati ons have not been clear ed or appro graham by the FDA. This assay has been valid ated pursu ant to the CLIA regul ation s and is used for clini lashell purpo ses. Not Available [facility] [address] [place], [address], 06/03/2023 15:17:55 05/31/19 24 06/03/2023 OVA AND KATHERINE ITES WITH GIARD IA ANTIG EN giardia Ag, EIA, stool SEE NOTE GIARD IA AG, EIA, STOOL Micro Numbe r: [id number] Test Statu s: Final Speci men Sourc e: Stool Speci men Quali ty: Adequ ate Giard ia Resul t 1: Not Detec rodriguez Refer ence Range : Not Detec rodriguez NOTE: Due to inter mitte nt andreia ing, one negat grupo sampl e does not neces saril y rule out the prese nce of a katherine itic infec tion. Not Available [facility] [address] [place], [address], 06/03/2023 15:17:55 05/31/19 24 06/03/2023 OVA AND KATHERINE ITES WITH GIARD IA ANTIG EN ova and parasites, conc and perm smear SEE NOTE OVA AND KATHERINE ITES, CONC AND PERM SMEAR Micro Numbe r: [id number] Test Statu s: Final Speci men Sourc e: Stool Speci men Quali ty: Adequ ate JOY NTRAT ION 1: No ova or katherine ites seen TRICH SHANTA 1: No ova or katherine ites seen Routi ne Ova and Katherine ite exam may not detec t some katherine ites that occas ional ly cause diarr heal illne ss. Crypt ospor idium Antig en and/o r Cyclo spora and Isosp ora Exam may be order ed to detec t these katherine ites. One negat grupo sampl e does not neces saril y rule out the prese nce of a katherine itic infec tion. For addit ional infor ion cortes e refer to https ://ed ucati on.qu bacilio FIZZA. [employer]/f aq/FA Q203 (This link is being provi ded for infor rakel sandoval/ educa tom l purpo ses only. ) Not Available [address], [address], 06/03/2023 15:17:55 05/31/19 24 06/06/2023 LIPID PANEL , STAND JULI cholesterol, total 103 mg/dL <200 normal Not Available [address], [address], 06/06/2023 18:37:30 05/31/19 24 06/06/2023 LIPID PANEL , STAND JULI HDL cholesterol 33 mg/dL > or = 50 low Not Available [address], [address], 06/06/2023 18:37:30 05/31/19 24 06/06/2023 LIPID PANEL , STAND JULI triglyceride s 131 mg/dL <150 normal Not Available [address], [address], 06/06/2023 18:37:30 05/31/19 24 06/06/2023 LIPID PANEL , STAND JULI LDL-choleste rol 49 mg/dL _(lashell c) normal Refer ence range : <100 Joseph able range <100 mg/dL for prima ry preve ntion ; <70 mg/dL for patie nts with CHD or diabe tic patie nts with > or = 2 CHD risk facto rs. LDL-C is now calcu lated using the Jo n-Hop kins adam toure, which is a valid ated novel metho d provi juan vanegaste r accur acy than the Fried jignesh equat ion in the estim ation of LDL-C . Jo toure SS et al. MAIK. 2013; 310(1 9): 2061- 2068 (http ://ed ucati on.[employer]. [employer]/f aq/FA Q164) Not Available [facility] [address] [address] [address] , [place], [address], 06/06/2023 18:37:30 05/31/19 24 06/06/2023 LIPID PANEL , STAND JULI chol/HDLC ratio 3.1 (calc ) <5.0 normal Not Available [facility] [address] [address] [address], [place], [address], 06/06/2023 18:37:30 05/31/19 24 06/06/2023 LIPID PANEL , STAND JULI non HDL cholesterol 70 mg/dL _(lashell c) <130 normal For patie nts with diabe ghazal plus 1 major ASCVD risk facto r, treat ing to a non-H DL-C goal of <100 mg/dL (LDL- C of <70 mg/dL ) is consi dered a roxanna wilma rey optio n. Not Available [facility] [address] [address] [address] , [place], [address], 06/06/2023 18:37:30 05/31/19 24 06/06/2023 INFLA MMATO RY BOWEL DISEA SE DIFFE RENTI ATION PANEL anca screen ATYP P-ANCA POS negati ve abnormal ANCA Scree n inclu patrick evalu ation for p-ANC A, c-ANC A and atypi lashell p-ANC A. A posit grupo ANCA scree n refle xes to luis and jose rn(s) , e.g., cytop lasmi c jose rn (c-AN CA), perin uclea r jose rn (p-AN CA), or atypi lashell p-ANC A jose rn. c-ANC A and p-ANC A are obser graham in vascu litis , where as atypi lashell p-ANC A is obser graham in IBD (Infl ammat ory Bowel Disea se). Atypi lashell p-ANC A is detec rodriguez in about 55% to 80% of patie nts with ulcer ative colit is but only 5% to 25% of patie nts with Crohn 's disea se. Not Available [facility] [address] [place], [address], 06/06/2023 18:37:32 05/31/19 24 06/06/2023 INFLA MMATO RY BOWEL DISEA SE DIFFE RENTI ATION PANEL myeloperoxid ase antibody <1.0 ai <1.0 Value Inter preta tion <1.0 AI: No Antib remigio Detec rodriguez >or=1 .0 AI: Antib remigio Detec rodriguez Autoa ntibo dies to myelo perox idase (MPO) are commo nly assoc iated with the follo wing small -vess el vascu litid es: micro scopi c polya ngiit is, polya rteri tis nodos a, [place]urg -Stra uss syndr ome, necro tizin g and cresc entic glome rulon ephri tis and occas ional ly granu lomat osis with polya ngiit is (GPA, Wegen er's) . The perin uclea r BAUTISTA garcia rn, (p-AN CA) is based large ly on autoa ntibo dy to myelo perox idase which serve s as the prima ry antig en. These autoa ntibo dies are prese nt in activ e disea se. Not Available [facility] [address] [place], [address], 06/06/2023 18:37:32 05/31/19 24 06/06/2023 INFLA MMATO RY BOWEL DISEA SE DIFFE RENTI ATION PANEL proteinase-3 antibody <1.0 ai <1.0 Value Inter preta tion <1.0 AI: No Antib remigio Detec rodriguez >or=1 .0 AI: Antib remigio Detec rodriguez Autoa ntibo dies to prote inase -3 (SC-3 ) are accep rodriguez as suki cteri stic for granu lomat osis with polya ngiit is (GPA, Wegen er's) , and are detec table in 95% of the histo logic ally prove n cases . The cytop jony garcia rn, (c-AN CA), is based large ly on autoa ntibo dy to SC-3 which serve s as the prima ry antig en. These autoa ntibo dies are prese nt in activ e disea se. Not Available [facility] [address] [place], [address], 06/06/2023 18:37:32 05/31/19 24 06/06/2023 INFLA MMATO RY BOWEL DISEA SE DIFFE RENTI ATION PANEL saccharomyce s cerevisiae Ab (asca) (IgG) 3.8 U <=20.0 Refer ence range (s): Negat grupo: <=20. 0 Equiv ocal: 20.1 - 29.9 Posit grupo: >=30. 0 Antib odies to Sacch aromy sushil cerev isiae are found in appro ximat regina 75% of patie nts with Crohn 's disea se, 15% of patie nts with ulcer ative colit is, and 5% of the healt hy popul ation . High antib remigio titer s incre ase the likel ihood of disea se, espec ially Crohn 's disea se, and are assoc iated with more aggre ssive disea se. As the infla mmati on in Crohn 's disea se is focus ed at the gut mucos a, most patie nts have IgA antib odies to S cerev isiae and half of these also have IgG antib odies . A minor ity of patie nts have only IgG antib odies to S cerev isiae . Not Available [facility] [address] [place], [address], 06/06/2023 18:37:32 05/31/19 24 06/06/2023 INFLA MMATO RY BOWEL DISEA SE DIFFE RENTI ATION PANEL saccharomyce s cerevisiae Ab (asca) (IgA) 4.4 U <=20.0 Refer ence range (s): Negat grupo : <=20. 0 Equiv ocal: 20.1 - 24.9 Posit grupo: >=25. 0 Antib odies to Sacch aromy sushil cerev isiae are found in appro ximat regina 75% of patie nts with Crohn 's disea se, 15% of patie nts with ulcer ative colit is, and 5% of the healt hy popul ation . High antib remigio titer s incre ase the likel ihood of disea se, espec ially Crohn 's disea se, and are assoc iated with more aggre ssive disea se. As the infla mmati on in Crohn 's disea se is focus ed at the gut mucos a, most patie nts have IgA antib odies to S cerev isiae and half of these also have IgG antib odies . A minor ity of patie nts have only IgG antib odies to S cerev isiae . Not Available [facility] [address] [address] [place], [address], 06/06/2023 18:37:32 05/31/19 24 06/06/2023 ATYPI LASHELL P ANCA TITER atypical P anca titer 1:20 titer <1:20 high Atypi lashell P-ANC A was obser graham. This patte rn has been assoc iated with vario us disea ses, inclu ding ulcer ative colit is, Crohn 's disea se, autoi mmune liver disea se, rheum atoid arthr itis, and syste rito lupus eryth emato valerio. Not Available [facility] [address] [place], [address], 06/06/2023 18:37:33 05/31/19 24 06/06/2023 COMPR EHENS GRUPO METAB OLIC PANEL glucose 90 mg/dL 65-99 normal Fasti ng refer ence inter robbin Not Available [facility] [address] [place], [address], 06/06/2023 18:37:33 05/31/19 24 06/06/2023 COMPR EHENS GRUPO METAB OLIC PANEL urea nitrogen (BUN) 6 mg/dL 7-25 low Not Available [address], [address], 06/06/2023 18:37:33 05/31/19 24 06/06/2023 COMPR EHENS GRUPO METAB OLIC PANEL creatinine 0.70 mg/dL 0.50-1 .05 normal Not Available [address], [address], 06/06/2023 18:37:33 05/31/19 24 06/06/2023 COMPR EHENS GRUPO METAB OLIC PANEL eGFR 94 mL/mi n/1.7 3m2 > or = 60 normal Not Available [address], [address], 06/06/2023 18:37:33 05/31/19 24 06/06/2023 COMPR EHENS GRUPO METAB OLIC PANEL BUN/creatini ne ratio 9 (calc ) 6-22 normal Not Available [address], [address], 06/06/2023 18:37:33 05/31/19 24 06/06/2023 COMPR EHENS GRUPO METAB OLIC PANEL sodium 138 mmol/ L 135-14 6 normal Not Available [address], [address], 06/06/2023 18:37:33 05/31/19 24 06/06/2023 COMPR EHENS GRUPO METAB OLIC PANEL potassium 4.0 mmol/ L 3.5-5. 3 normal Not Available [address], [address], 06/06/2023 18:37:33 05/31/19 24 06/06/2023 COMPR EHENS GRUPO METAB OLIC PANEL chloride 102 mmol/ L 98-110 normal Not Available [address], [address], 06/06/2023 18:37:33 05/31/19 24 06/06/2023 COMPR EHENS GRUPO METAB OLIC PANEL carbon dioxide 31 mmol/ L 20-32 normal Not Available [address], [address], 06/06/2023 18:37:33 05/31/19 24 06/06/2023 COMPR EHENS GRUPO METAB OLIC PANEL calcium 8.6 mg/dL 8.6-10 .4 normal Not Available [address], [address], 06/06/2023 18:37:33 05/31/19 24 06/06/2023 COMPR EHENS GRUPO METAB OLIC PANEL protein, total 6.6 g/dL 6.1-8. 1 normal Not Available [address], [address], 06/06/2023 18:37:33 05/31/19 24 06/06/2023 COMPR EHENS GRUPO METAB OLIC PANEL albumin 3.6 g/dL 3.6-5. 1 normal Not Available [address], [address], 06/06/2023 18:37:33 05/31/19 24 06/06/2023 COMPR EHENS GRUPO METAB OLIC PANEL globulin 3.0 g/dL_ (calc ) 1.9-3. 7 normal Not Available [address], [address], 06/06/2023 18:37:33 05/31/19 24 06/06/2023 COMPR EHENS GRUPO METAB OLIC PANEL albumin/glob ulin ratio 1.2 (calc ) 1.0-2. 5 normal Not Available [address], [address], 06/06/2023 18:37:33 05/31/19 24 06/06/2023 COMPR EHENS GRUPO METAB OLIC PANEL bilirubin, total 0.6 mg/dL 0.2-1. 2 normal Not Available [address], [address], 06/06/2023 18:37:33 05/31/19 24 06/06/2023 COMPR EHENS GRUPO METAB OLIC PANEL alkaline phosphatase 70 U/L 37-153 normal Not Available [address], [address], 06/06/2023 18:37:33 05/31/19 24 06/06/2023 COMPR EHENS GRUPO METAB OLIC PANEL AST 13 U/L 10-35 normal Not Available [address], [address], 06/06/2023 18:37:33 05/31/19 24 06/06/2023 COMPR EHENS GRUPO METAB OLIC PANEL ALT 12 U/L 6-29 normal Not Available [address], [address], 06/06/2023 18:37:33 05/31/19 24 06/06/2023 CBC (INCL UDES DIFF/ PLT) white blood cell count 13.7 thous and/u L 3.8-10 .8 high Not Available [address], [address], 06/06/2023 18:37:35 05/31/19 24 06/06/2023 CBC (INCL UDES DIFF/ PLT) red blood cell count 4.27 cristy on/uL 3.80-5 .10 normal Not Available [address], [address], 06/06/2023 18:37:35 05/31/19 24 06/06/2023 CBC (INCL UDES DIFF/ PLT) hemoglobin 12.9 g/dL 11.7-1 5.5 normal Not Available [address], [address], 06/06/2023 18:37:35 05/31/19 24 06/06/2023 CBC (INCL UDES DIFF/ PLT) hematocrit 38.6 % 35.0-4 5.0 normal Not Available [address], [address], 06/06/2023 18:37:35 05/31/19 24 06/06/2023 CBC (INCL UDES DIFF/ PLT) MCV 90.4 fL 80.0-1 00.0 normal Not Available [address], [address], 06/06/2023 18:37:35 05/31/19 24 06/06/2023 CBC (INCL UDES DIFF/ PLT) MCH 30.2 pg 27.0-3 3.0 normal Not Available [address], [address], 06/06/2023 18:37:35 05/31/19 24 06/06/2023 CBC (INCL UDES DIFF/ PLT) MCHC 33.4 g/dL 32.0-3 6.0 normal Not Available [address], [address], 06/06/2023 18:37:35 05/31/19 24 06/06/2023 CBC (INCL UDES DIFF/ PLT) RDW 13.0 % 11.0-1 5.0 normal Not Available [address], [address], 06/06/2023 18:37:35 05/31/19 24 06/06/2023 CBC (INCL UDES DIFF/ PLT) platelet count 325 thous and/u L 140-40 0 normal Not Available [address], [address], 06/06/2023 18:37:35 05/31/19 24 06/06/2023 CBC (INCL UDES DIFF/ PLT) MPV 11.7 fL 7.5-12 .5 normal Not Available [address], [address], 06/06/2023 18:37:35 05/31/19 24 06/06/2023 CBC (INCL UDES DIFF/ PLT) absolute neutrophils 9823 cells /uL 1500-7 800 high Not Available [address], [address], 06/06/2023 18:37:35 05/31/19 24 06/06/2023 CBC (INCL UDES DIFF/ PLT) absolute lymphocytes 2398 cells /uL 850-39 00 normal Not Available [address], [address], 06/06/2023 18:37:35 05/31/19 24 06/06/2023 CBC (INCL UDES DIFF/ PLT) absolute monocytes 1178 cells /uL 200-95 0 high Not Available [address], [address], 06/06/2023 18:37:35 05/31/19 24 06/06/2023 CBC (INCL UDES DIFF/ PLT) absolute eosinophils 233 cells /uL 15-500 normal Not Available [address], [address], 06/06/2023 18:37:35 05/31/19 24 06/06/2023 CBC (INCL UDES DIFF/ PLT) absolute basophils 69 cells /uL 0-200 normal Not Available [address], [address], 06/06/2023 18:37:35 05/31/19 24 06/06/2023 CBC (INCL UDES DIFF/ PLT) neutrophils 71.7 % normal Not Available [facility] [address], [address], 06/06/2023 18:37:35 05/31/19 24 06/06/2023 CBC (INCL UDES DIFF/ PLT) lymphocytes 17.5 % normal Not Available [facility] [address], [address], 06/06/2023 18:37:35 05/31/19 24 06/06/2023 CBC (INCL UDES DIFF/ PLT) monocytes 8.6 % normal Not Available [facility] [address], [address], 06/06/2023 18:37:35 05/31/19 24 06/06/2023 CBC (INCL UDES DIFF/ PLT) eosinophils 1.7 % normal Not Available [address], [address], 06/06/2023 18:37:35 05/31/19 24 06/06/2023 CBC (INCL UDES DIFF/ PLT) basophils 0.5 % normal Not Available [address], [address], 06/06/2023 18:37:35 12/24/19 24 12/25/2023 LIPID PANEL , STAND JULI cholesterol, total 141 mg/dL <200 normal Not Available [address], [address], 12/25/2023 06:54:07 12/24/19 24 12/25/2023 LIPID PANEL , STAND JULI HDL cholesterol 35 mg/dL > or = 50 low Not Available [address], [address], 12/25/2023 06:54:07 12/24/19 24 12/25/2023 LIPID PANEL , STAND JULI triglyceride s 160 mg/dL <150 high Not Available [facility] [id number] [place], [address], 12/25/2023 06:54:07 12/24/19 24 12/25/2023 LIPID PANEL , STAND JULI LDL-choleste rol 80 mg/dL _(lashell c) normal Refer ence range : <100 Joseph able range <100 mg/dL for prima ry preve ntion ; <70 mg/dL for patie nts with CHD or diabe tic patie nts with > or = 2 CHD risk facto rs. LDL-C is now calcu lated using the Jo n-Hop kins calcu latshadi n, which is a valid ated novel metho d provi juan gamboa r accur acy than the Fried jignesh equat ion in the estim ation of LDL-C . Jo toure SS et al. MAIK. 2013; 310(1 9): 2061- 2068 (http ://ed ucati on.[employer]. com/f aq/FA Q164) Not Available [facility] [address] [address] [place], [address], 12/25/2023 06:54:07 12/24/19 24 12/25/2023 LIPID PANEL , STAND JULI chol/HDLC ratio 4.0 (calc ) <5.0 normal Not Available [facility] [address] [place], [address], 12/25/2023 06:54:07 12/24/19 24 12/25/2023 LIPID PANEL , STAND JULI non HDL cholesterol 106 mg/dL _(lashell c) <130 normal For patie nts with diabe ghazal plus 1 major ASCVD risk facto r, treat ing to a non-H DL-C goal of <100 mg/dL (LDL- C of <70 mg/dL ) is consi aspen najera therreinaldo pemiranda c optio n. Not Available [facility] [address] [place], [address], 12/25/2023 06:54:07 12/24/19 24 12/25/2023 COMPR EHENS GRUPO METAB OLIC PANEL , PLASM A glucose 100 mg/dL 65-99 high Fasti ng refer ence inter robbin For someo ne witho ut known diabe ghazal, a gluco se value betwe en 100 and 125 mg/dL is consi stent with predi abete s and shoul d be confi rmed with a follo w-up test. Not Available [address], [address], 12/25/2023 06:54:08 12/24/19 24 12/25/2023 COMPR EHENS GRUPO METAB OLIC PANEL , PLASM A urea nitrogen (BUN) 12 mg/dL 7-25 normal Not Available [address], [address], 12/25/2023 06:54:08 12/24/19 24 12/25/2023 COMPR EHENS GRUPO METAB OLIC PANEL , PLASM A creatinine 0.69 mg/dL 0.50-1 .05 normal Not Available [address], [address], 12/25/2023 06:54:08 12/24/19 24 12/25/2023 COMPR EHENS GRUPO METAB OLIC PANEL , PLASM A eGFR 94 mL/mi n/1.7 3m2 > or = 60 normal Not Available [address], [address], 12/25/2023 06:54:08 12/24/19 24 12/25/2023 COMPR EHENS GRUPO METAB OLIC PANEL , PLASM A BUN/creatini ne ratio SEE NOTE: (calc ) 6-22 Not Repor rodriguez: BUN and Creat inine are withi n refer ence range . Not Available [address], [address], 12/25/2023 06:54:08 12/24/19 24 12/25/2023 COMPR EHENS GRUPO METAB OLIC PANEL , PLASM A sodium 139 mmol/ L 135-14 6 normal Not Available [facility] [address] [address], [place], [address], 12/25/2023 06:54:08 12/24/19 24 12/25/2023 COMPR EHENS GRUPO METAB OLIC PANEL , PLASM A potassium 3.5 mmol/ L 3.4-4. 8 normal Not Available [address], [address], 12/25/2023 06:54:08 12/24/19 24 12/25/2023 COMPR EHENS GRUPO METAB OLIC PANEL , PLASM A chloride 104 mmol/ L 98-110 normal Not Available [address], [address], 12/25/2023 06:54:08 12/24/19 24 12/25/2023 COMPR EHENS GRUPO METAB OLIC PANEL , PLASM A carbon dioxide 28 mmol/ L 20-32 normal Not Available [address], [address], 12/25/2023 06:54:08 12/24/19 24 12/25/2023 COMPR EHENS GRUPO METAB OLIC PANEL , PLASM A calcium 9.1 mg/dL 8.6-10 .4 normal Not Available [address], [address], 12/25/2023 06:54:08 12/24/19 24 12/25/2023 COMPR EHENS GRUPO METAB OLIC PANEL , PLASM A protein, total 7.8 g/dL 6.4-8. 4 normal Not Available [address], [address], 12/25/2023 06:54:08 12/24/19 24 12/25/2023 COMPR EHENS GRUPO METAB OLIC PANEL , PLASM A albumin 3.9 g/dL 3.6-5. 1 normal Not Available [address], [address], 12/25/2023 06:54:08 12/24/19 24 12/25/2023 COMPR EHENS GRUPO METAB OLIC PANEL , PLASM A globulin 3.9 g/dL_ (calc ) 2.2-4. 0 normal Not Available [address], [address], 12/25/2023 06:54:08 12/24/19 24 12/25/2023 COMPR EHENS GRUPO METAB OLIC PANEL , PLASM A albumin/glob ulin ratio 1.0 (calc ) 0.9-2. 3 normal Not Available [address], [address], 12/25/2023 06:54:08 12/24/19 24 12/25/2023 COMPR EHENS GRUPO METAB OLIC PANEL , PLASM A bilirubin, total 0.9 mg/dL 0.2-1. 2 normal Not Available [address], [address], 12/25/2023 06:54:08 12/24/19 24 12/25/2023 COMPR EHENS GRUPO METAB OLIC PANEL , PLASM A alkaline phosphatase 85 U/L 37-153 normal Not Available [address], [address], 12/25/2023 06:54:08 12/24/19 24 12/25/2023 COMPR EHENS GRUPO METAB OLIC PANEL , PLASM A AST 15 U/L 10-35 normal Not Available [address], [address], 12/25/2023 06:54:08 12/24/19 24 12/25/2023 COMPR EHENS GRUPO METAB OLIC PANEL , PLASM A ALT 16 U/L 6-29 normal Not Available [address], [address], 12/25/2023 06:54:08 12/24/19 24 12/25/2023 CBC (INCL UDES DIFF/ PLT) white blood cell count 11.2 thous and/u L 3.8-10 .8 high Not Available [address], [address], 12/25/2023 06:54:08 12/24/19 24 12/25/2023 CBC (INCL UDES DIFF/ PLT) red blood cell count 4.23 cristy on/uL 3.80-5 .10 normal Not Available [address], [address], 12/25/2023 06:54:08 12/24/19 24 12/25/2023 CBC (INCL UDES DIFF/ PLT) hemoglobin 12.9 g/dL 11.7-1 5.5 normal Not Available [address], [address], 12/25/2023 06:54:08 12/24/19 24 12/25/2023 CBC (INCL UDES DIFF/ PLT) hematocrit 40.2 % 35.0-4 5.0 normal Not Available [address], [address], 12/25/2023 06:54:08 12/24/19 24 12/25/2023 CBC (INCL UDES DIFF/ PLT) MCV 95.0 fL 80.0-1 00.0 normal Not Available [address], [address], 12/25/2023 06:54:08 12/24/19 24 12/25/2023 CBC (INCL UDES DIFF/ PLT) MCH 30.5 pg 27.0-3 3.0 normal Not Available [address], [address], 12/25/2023 06:54:08 12/24/19 24 12/25/2023 CBC (INCL UDES DIFF/ PLT) MCHC 32.1 g/dL 32.0-3 6.0 normal Not Available [address], [address], 12/25/2023 06:54:08 12/24/19 24 12/25/2023 CBC (INCL UDES DIFF/ PLT) RDW 13.6 % 11.0-1 5.0 normal Not Available [address], [address], 12/25/2023 06:54:08 12/24/19 24 12/25/2023 CBC (INCL UDES DIFF/ PLT) platelet count 274 thous and/u L 140-40 0 normal Not Available [address], [address], 12/25/2023 06:54:08 12/24/19 24 12/25/2023 CBC (INCL UDES DIFF/ PLT) MPV 11.4 fL 7.5-12 .5 normal Not Available [address], [address], 12/25/2023 06:54:08 12/24/19 24 12/25/2023 CBC (INCL UDES DIFF/ PLT) absolute neutrophils 7213 cells /uL 1500-7 800 normal Not Available [address], [address], 12/25/2023 06:54:08 12/24/19 24 12/25/2023 CBC (INCL UDES DIFF/ PLT) absolute lymphocytes 2800 cells /uL 850-39 00 normal Not Available [address], [address], 12/25/2023 06:54:08 12/24/19 24 12/25/2023 CBC (INCL UDES DIFF/ PLT) absolute monocytes 874 cells /uL 200-95 0 normal Not Available [address], [address], 12/25/2023 06:54:08 12/24/19 24 12/25/2023 CBC (INCL UDES DIFF/ PLT) absolute eosinophils 258 cells /uL 15-500 normal Not Available [address], [address], 12/25/2023 06:54:08 12/24/19 24 12/25/2023 CBC (INCL UDES DIFF/ PLT) absolute basophils 56 cells /uL 0-200 normal Not Available [address], [address], 12/25/2023 06:54:08 12/24/19 24 12/25/2023 CBC (INCL UDES DIFF/ PLT) neutrophils 64.4 % normal Not Available [address], [address], 12/25/2023 06:54:08 12/24/19 24 12/25/2023 CBC (INCL UDES DIFF/ PLT) lymphocytes 25.0 % normal Not Available [facility] [address], [address], 12/25/2023 06:54:08 12/24/19 24 12/25/2023 CBC (INCL UDES DIFF/ PLT) monocytes 7.8 % normal Not Available [facility] [address], [address], 12/25/2023 06:54:08 12/24/19 24 12/25/2023 CBC (INCL UDES DIFF/ PLT) eosinophils 2.3 % normal Not Available [facility] [address], [address], 12/25/2023 06:54:08 12/24/19 24 12/25/2023 CBC (INCL UDES DIFF/ PLT) basophils 0.5 % normal Not Available [facility] [address], [address], 12/25/2023 06:54:08 12/24/19 24 12/25/2023 T4, FREE T4, free 0.9 NG/dL 0.8-1. 8 normal Not Available [address], [address], 12/25/2023 06:54:09 12/24/19 24 12/25/2023 TSH TSH 1.92 mIU/L 0.40-4 .50 normal Not Available [address] [place], [address], 12/25/2023 06:54:09 12/24/19 24 12/25/2023 VITAM IN D,25- OH,TO REBECCA,I A vitamin D,25-oh,tota l,ia 36 NG/mL 30-100 normal Vitam in D Statu s 25-OH Vitam in D: Defic iency : <20 ng/mL Insuf ficie ncy: 20 - 29 ng/mL Optim al: > or = 30 ng/mL For 25-OH Vitam in D testi ng on patie nts on D2-beltrán pplem entat ion and patie nts for whom quant itati on of D2 and D3 fract ions is requi red, the [facility](TM ) 25-OH VIT D, (D2,D 3), LC/MS /MS is recom carlton d: order code 22174 (beth ents >2yrs ). See Note 1 Note 1 For addit ional infor ion cortes refer to http: //malka Sims gnost ics.c om/fa q/FAQ 199 (This link is being provi ded for infor rakel sandoval/ martha curiel purpo ses only. ) Not Available [address], [address], 12/25/2023 06:54:09 06/30/19 25 07/01/2024 LIPID PANEL , STAND JULI cholesterol, total 151 mg/dL <200 normal Not Available [address], [address], 07/01/2024 06:02:42 06/30/1907/01/2024 LIPID PANEL , STAND JULI HDL cholesterol 43 mg/dL > or = 50 low Not Available [facility] [id number] [place] [address], [address], 07/01/2024 06:02:42 06/30/1907/01/2024 LIPID PANEL , STAND JULI triglyceride s 159 mg/dL <150 high Not Available [address], [address], 07/01/2024 06:02:42 06/30/1907/01/2024 LIPID PANEL , STAND JULI LDL-choleste rol 82 mg/dL _(lashell c) normal Refer ence range : <100 Joseph able range <100 mg/dL for prima ry preve ntion ; <70 mg/dL for patie nts with CHD or diabe tic patie nts with > or = 2 CHD risk facto rs. LDL-C is now calcu lated using the Jo n-Hop kins calcu soto n, which is a valid ated novel rufino villalba than the Fried jignesh equat ion in the estim ation of LDL-C . Jo toure SS et al. MAIK. 2013; 310(1 9): 2061- 2068 (http ://ed ucati on.Jakob campuzano dentaZOOM. com/f aq/FA Q164) Not Available [address], [address], 07/01/2024 06:02:42 06/30/1907/01/2024 LIPID PANEL , STAND JULI chol/HDLC ratio 3.5 (calc ) <5.0 normal Not Available [address], [address], 07/01/2024 06:02:42 06/30/1907/01/2024 LIPID PANEL , STAND JULI non HDL cholesterol 108 mg/dL _(lashell c) <130 normal For patie nts with diabe ghazal plus 1 major ASCVD risk facto r, treat ing to a non-H DL-C goal of <100 mg/dL (LDL- C of <70 mg/dL ) is consi dered a thera peuti c optio n. Not Available [address], [address], 07/01/2024 06:02:42 06/30/1907/01/2024 COMPR EHENS GRUPO METAB OLIC PANEL , PLASM A glucose 109 mg/dL 65-99 high Fasti ng refer ence inter robbin For someo ne witho ut known diabe ghazal, a gluco se value betwe en 100 and 125 mg/dL is consi stent with predi abete s and shoul d be confi rmed with a follo w-up test. Not Available [address], [address], 07/01/2024 06:02:43 06/30/1907/01/2024 COMPR EHENS GRUPO METAB OLIC PANEL , PLASM A urea nitrogen (BUN) 12 mg/dL 7-25 normal Not Available [address], [address], 07/01/2024 06:02:43 06/30/1907/01/2024 COMPR EHENS GRUPO METAB OLIC PANEL , PLASM A creatinine 0.65 mg/dL 0.50-1 .05 normal Not Available [address] [place], [address], 07/01/2024 06:02:43 06/30/1907/01/2024 COMPR EHENS GRUPO METAB OLIC PANEL , PLASM A eGFR 95 mL/mi n/1.7 3m2 > or = 60 normal Not Available [address] [place], [address], 07/01/2024 06:02:43 02/25/07/01/2024 COMPR EHENS GRUPO METAB OLIC PANEL , PLASM A BUN/creatini ne ratio SEE NOTE: (calc ) 6-22 Not Repor rodriguez: BUN and Creat inine are withi n refer ence range . Not Available [address], [address], 07/01/2024 06:02:43 06/30/1907/01/2024 COMPR EHENS GRUPO METAB OLIC PANEL , PLASM A sodium 140 mmol/ L 135-14 6 normal Not Available [address], [address], 07/01/2024 06:02:43 06/30/1907/01/2024 COMPR EHENS GRUPO METAB OLIC PANEL , PLASM A potassium 3.5 mmol/ L 3.4-4. 8 normal Not Available [address], [address], 07/01/2024 06:02:43 06/30/19 25 07/01/2024 COMPR EHENS GRUPO METAB OLIC PANEL , PLASM A chloride 102 mmol/ L 98-110 normal Not Available [address], [address], 07/01/2024 06:02:43 06/30/19 25 07/01/2024 COMPR EHENS GRUPO METAB OLIC PANEL , PLASM A carbon dioxide 29 mmol/ L 20-32 normal Not Available [address], [address], 07/01/2024 06:02:43 06/30/1907/01/2024 COMPR EHENS GRUPO METAB OLIC PANEL , PLASM A calcium 9.0 mg/dL 8.6-10 .4 normal Not Available [address], [address], 07/01/2024 06:02:43 06/30/19 25 07/01/2024 COMPR EHENS GRUPO METAB OLIC PANEL , PLASM A protein, total 7.7 g/dL 6.4-8. 4 normal Not Available [address], [address], 07/01/2024 06:02:43 06/30/19 25 07/01/2024 COMPR EHENS GURPO METAB OLIC PANEL , PLASM A albumin 4.0 g/dL 3.6-5. 1 normal Not Available [address], [address], 07/01/2024 06:02:43 06/30/19 25 07/01/2024 COMPR EHENS GRUPO METAB OLIC PANEL , PLASM A globulin 3.7 g/dL_ (calc ) 2.2-4. 0 normal Not Available [address], [address], 07/01/2024 06:02:43 06/30/19 25 07/01/2024 COMPR EHENS GRUPO METAB OLIC PANEL , PLASM A albumin/glob ulin ratio 1.1 (calc ) 0.9-2. 3 normal Not Available [address], [address], 07/01/2024 06:02:43 06/30/19 25 07/01/2024 COMPR EHENS GRUPO METAB OLIC PANEL , PLASM A bilirubin, total 0.9 mg/dL 0.2-1. 2 normal Not Available [address], [address], 07/01/2024 06:02:43 06/30/1907/01/2024 COMPR EHENS GRUPO METAB OLIC PANEL , PLASM A alkaline phosphatase 67 U/L 37-153 normal Not Available [address], [address], 07/01/2024 06:02:43 06/30/19 25 07/01/2024 COMPR EHENS GRUPO METAB OLIC PANEL , PLASM A AST 13 U/L 10-35 normal Not Available [address], [address], 07/01/2024 06:02:43 06/30/1907/01/2024 COMPR EHENS GRUPO METAB OLIC PANEL , PLASM A ALT 13 U/L 6-29 normal Not Available [address], [address], 07/01/2024 06:02:43 06/30/1907/01/2024 CBC (INCL UDES DIFF/ PLT) white blood cell count 7.9 thous and/u L 3.8-10 .8 normal Not Available [address], [address], 07/01/2024 06:02:45 06/30/1907/01/2024 CBC (INCL UDES DIFF/ PLT) red blood cell count 3.96 cristy on/uL 3.80-5 .10 normal Not Available [address], [address], 07/01/2024 06:02:45 06/30/1907/01/2024 CBC (INCL UDES DIFF/ PLT) hemoglobin 12.3 g/dL 11.7-1 5.5 normal Not Available [address], [address], 07/01/2024 06:02:45 06/30/1907/01/2024 CBC (INCL UDES DIFF/ PLT) hematocrit 37.4 % 35.0-4 5.0 normal Not Available [address], [address], 07/01/2024 06:02:45 06/30/1907/01/2024 CBC (INCL UDES DIFF/ PLT) MCV 94.4 fL 80.0-1 00.0 normal Not Available [address], [address], 07/01/2024 06:02:45 06/30/1907/01/2024 CBC (INCL UDES DIFF/ PLT) MCH 31.1 pg 27.0-3 3.0 normal Not Available [address], [address], 07/01/2024 06:02:45 06/30/1907/01/2024 CBC (INCL UDES DIFF/ PLT) MCHC 32.9 g/dL 32.0-3 6.0 normal For adult s, a sligh t decre ase in the calcu lated MCHC value (in the range of 30 to 32 g/dL) is most likel y not clini josé signi heide t; siena er, it shoul d be inter prete d [facility] with other red cell vicente eters and the patie nt's clini lashell condi tion. Not Available [address], [address], 07/01/2024 06:02:45 06/30/1907/01/2024 CBC (INCL UDES DIFF/ PLT) RDW 12.3 % 11.0-1 5.0 normal Not Available [address], [address], 07/01/2024 06:02:45 06/30/1907/01/2024 CBC (INCL UDES DIFF/ PLT) platelet count 278 thous and/u L 140-40 0 normal Not Available [address], [address], 07/01/2024 06:02:45 06/30/1907/01/2024 CBC (INCL UDES DIFF/ PLT) MPV 11.4 fL 7.5-12 .5 normal Not Available [address], [address], 07/01/2024 06:02:45 06/30/1907/01/2024 CBC (INCL UDES DIFF/ PLT) absolute neutrophils 4851 cells /uL 1500-7 800 normal Not Available [address], [address], 07/01/2024 06:02:45 06/30/19 25 07/01/2024 CBC (INCL UDES DIFF/ PLT) absolute lymphocytes 2173 cells /uL 850-39 00 normal Not Available [address], [address], 07/01/2024 06:02:45 06/30/1907/01/2024 CBC (INCL UDES DIFF/ PLT) absolute monocytes 600 cells /uL 200-95 0 normal Not Available [address], [address], 07/01/2024 06:02:45 06/30/1907/01/2024 CBC (INCL UDES DIFF/ PLT) absolute eosinophils 213 cells /uL 15-500 normal Not Available [address], [address], 07/01/2024 06:02:45 06/30/19 25 07/01/2024 CBC (INCL UDES DIFF/ PLT) absolute basophils 63 cells /uL 0-200 normal Not Available [address], [address], 07/01/2024 06:02:45 06/30/1907/01/2024 CBC (INCL UDES DIFF/ PLT) neutrophils 61.4 % normal Not Available [address], [address], 07/01/2024 06:02:45 06/30/1907/01/2024 CBC (INCL UDES DIFF/ PLT) lymphocytes 27.5 % normal Not Available [address], [address], 07/01/2024 06:02:45 06/30/19 25 07/01/2024 CBC (INCL UDES DIFF/ PLT) monocytes 7.6 % normal Not Available [address], [address], 07/01/2024 06:02:45 06/30/19 25 07/01/2024 CBC (INCL UDES DIFF/ PLT) eosinophils 2.7 % normal Not Available [address], [address], 07/01/2024 06:02:45 06/30/19 25 07/01/2024 CBC (INCL UDES DIFF/ PLT) basophils 0.8 % normal Not Available [address], [address], 07/01/2024 06:02:45 06/30/1907/01/2024 T4, FREE T4, free 1.0 NG/dL 0.8-1. 8 normal Not Available [address], [address], 07/01/2024 06:02:46 06/30/19 25 07/01/2024 TSH TSH 2.53 mIU/L 0.40-4 .50 normal Not Available [address], [address], 07/01/2024 06:02:47 05/26/19 24 05/26/2023 CT, abdom en + pelvi s, w/ contr ast No observ ation record ed. [address], [place], [address], 05/27/2023 06:48:37 06/21/19 LDCT, chest , for lung cance r scree byron [facility] [address] [place] [address] Patien t Name: JENNA GILLETTE ion #: [id number] Sex: F : 1955 7 Dictat ed By: Ofelia lizarraga Attend ing Physic abundio: DELTA KUMAR CE Orderi ng Physic abundio: DELTA KUMAR CE Exam Date: 2023 09:02 AM Exam Name: CT LOW DOSE CANCER SCREEN ING Admitt ing Diagno sis(es ): CLINIC AL INFORM ATION: Lung cancer screen ing. Currcatalina t smoker . 35 pack year histor y of smokin g. TECHNI QUE: Low dose axial CT images of the chest were obtain ed withou t contra st for lung cancer screen ing purpos es. Images were displa yed in lung and soft tissue window s. Mcdowell l and sagitt al reform atted images were obtain ed, review ed, and stored . One or more of the follow ing dose reduct ion techni ques were used: Automa rodriguez exposu re contro l. Adjust ment of mA and/or kV accord ing to patien t size. CTDIvo l = 0.085, 0.085, 2.9 mGy DLP = 112.7 mGy-cm COMPAR BETZAIDA: Prior low-do se CT dated [address] dated 05/09/19 22. FINDIN GS: 6.5 mm nodule in the right middle lobe anteri sylvester (serie s 204 image 139), stable dating back to 2021. No new or suspic ious pulmon myron nodule . Simila r appear ing emphys ematou s change s. Lungs are otherw ise clear. Heart size is within normal limits . There is dense mcdowell ry artery calcif icatio n. Modera te athero sclero tic calcif icatio n of the aortic arch. No thorac ic aortic aneury sm. No medias tinal or hilar lympha denopa thy. Visual ized portio ns of the chest wall are unrema rkable . Limite d low-do se noncon trast enhanc ed images of the upper abdome n demons trate a stable left adrena l nodule , most consis tent with a benign lipid rich adenom a. There is no acute osseou s abnorm ality. IMPRES TED: Stable nodule in the right middle lobe. No new or suspic ious pulmon myron nodule . Additi onal findin gs as descri bed above. Lung Rads Catego ry: 2, benign . Recomm endati on: Contin ue annual screen ing with low-do se CT in 12 months . Electr onical ly Signed by: Ofelia lizarraga at 2023 10:06: 28 AM Page 1 [id number] [facility] (Imaging) [address] [place], [address], 06/21/2023 12:21:27 06/21/19 24 MAMMO , scree byron, digit al, bilat eral [facility] [address] [place] [address] Patien t Name: JENNA GILLETTE Access ion #: [id number] Sex: F : 1955 7 Dictat ed By: Ofelia lizarraga Attend ing Physic abundio: DELTA KUMAR CE Orderi ng Physic abundio: DELTA KUMAR CE Exam Date: 2023 09:02 AM Exam Name: SARA Enrike JACQUIE BILAT SCREEN Admitt ing Diagno sis(es ): CLINIC AL HISTOR Y: Screen ing exam, no breast compla ints. No person al histor y of breast cancer or prior breast interv ention . No family histor y of breast cancer . COMPAR BETZAIDA: Prior mammog iva dated 023, 021, and 2018. TECHNI QUE: Full field bilate ral digita l mammog nicole was perfor med in the CC and MLO projec tions. CAD was utiliz ed. FINDIN GS: There are scatte red fibrog landul ar densit ies (categ ory B). No suspic ious mass, lawrence ectura l distor tion, or suspic ious microc alcifi cation s are seen. The axilla e, skin and nipple s are normal . IMPRES TED: Normal mammog kenney. RECOMM ENDATI ONS: In the absenc e of new breast compla ints, annual screen ing is recomm ended. The patien t will be notifi ed of the mammog nicole result s per hospit al protoc ol. BI-RAD S CATEGO RY: 1: Negati ve. Electr onical ly Signed by: Ofelia lizarraga at 2023 10:32: 47 AM Page [address] (Imaging) [address] [place], [address], 06/21/2023 12:21:47 10/03/19 24 10/02/2023 US, doppl er, venou s No observ ation record ed. [address] [facility] [address], [place], [address], 10/03/2023 20:17:03 Result Notes Documentation Provider Name and Address Organization Details Recorded Time Ldct, Chest, For Lung Cancer Screening : [facility] [address] [place] [address] Patient Name: JENNA GILLETTE Sex: F : 1955 Dictated By: Weston Tomlinson Attending Physician: HAYLEY KUMAR Ordering Physician: HAYLEY KUMAR Exam Date: 06/21/2023 09:02 AM Exam Name: CT LOW DOSE CANCER SCREENING Admitting Diagnosis(es): CLINICAL INFORMATION: Lung cancer screening. Current smoker. 35 pack year history of smoking. TECHNIQUE: Low dose axial CT images of the chest were obtained without contrast for lung cancer screening purposes. Images were displayed in lung and soft tissue windows. Coronal and sagittal reformatted images were obtained, reviewed, and stored. One or more of the following dose reduction techniques were used: Automated exposure control. Adjustment of mA and/or kV according to patient size. CTDIvol = 0.085, 0.085, 2.9 mGy DLP = 112.7 mGy-cm COMPARISON: Prior low-dose CT dated 05/29/[address] dated 05/09/2021. FINDINGS: 6.5 mm nodule in the right middle lobe anteriorly (series 204 image 139), stable dating back to 2021. No new or suspicious pulmonary nodule. Similar appearing emphysematous changes. Lungs are otherwise clear. Heart size is within normal limits. There is dense coronary artery calcification. Moderate atherosclerotic calcification of the aortic arch. No thoracic aortic aneurysm. No mediastinal or hilar lymphadenopathy. Visualized portions of the chest wall are unremarkable. 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 There is no acute osseous abnormality. IMPRESSION: Stable nodule in the right middle lobe. No new or suspicious pulmonary nodule. Additional findings as described above. Lung Rads Category: 2, benign. Recommendation: Continue annual screening with low-dose CT in 12 months. Page 1 Hayley Kumar MD [address], [address], [facility] [employer] [facility] 06/21/2023 12:21:27 Mammo, Screening, Digital, Bilateral : [facility] [address] [place] [address] Patient Name: JENNA GILLETTE [facility]: F : 1955 [id number] Dictated By: Weston Tomlinson Attending Physician: HAYLEY KUMAR Ordering Physician: HAYLEY KUMAR Exam Date: 06/21/2023 09:02 AM Exam Name: DIGITAL JACQUIE BILAT SCREEN Admitting Diagnosis(es): CLINICAL HISTORY: Screening exam, no breast complaints. No personal history of breast cancer or prior breast intervention. No family history of breast cancer. COMPARISON: Prior mammograms dated 05/29/2022, 01/24/2021, and 03/16/2019. TECHNIQUE: Full field bilateral digital mammography was performed in the CC and MLO projections. CAD was utilized. FINDINGS: There are scattered fibroglandular densities (category B). No suspicious mass, architectural distortion, or suspicious microcalcifications are seen. The axillae, skin and nipples are normal. IMPRESSION: Normal mammogram. RECOMMENDATIONS: In the absence of new breast complaints, annual screening is recommended. The patient will be notified of the mammography results per hospital protocol. BI-RADS CATEGORY: 1: Negative. Page 1 Hayley Kumar MD [address], [place], [address], [facility] 06/21/2023 12:21:47 Problems Name Problem SNOMED Code Status Onset Date Resolution Date Notes Provider Name and Address Organization Details Recorded Time Benign essential hypertensi on 9905837 Active Not Available [facility] 3 06:15:24 Anxiety disorder 029809491 Active 2016 Not Available [facility] 3 06:15:24 Pure hyperchole sterolemia 618957825 Active Not Available [facility] 3 06:15:24 Low back strain 723294885 Active 2022 Not Available [facility] 3 06:15:24 Left lower quadrant pain 668058640 Active Not Available [facility] 3 06:15:24 Osteoarthr itis of left knee joint 5531720016791 09 Active 2021 Not Available [facility] 3 06:15:24 Osteoarthr itis of right knee joint 9872123565422 00 Active 2021 Not Available [facility] 3 06:15:24 Vitamin D deficiency 57694604 Active 2021 Not Available [facility] 3 06:15:24 Osteoarthr itis 047628312 Active 2016 Not Available [facility] 3 06:15:24 Pain of bilateral knee joints 0376441225710 04 Active 2021 Not Available [facility] 3 06:15:24 Herpes zoster 6849956 Active 2022 Not Available [facility] 3 06:15:24 Female stress incontinen ce 51651253 Active Not Available [facility] 3 06:15:24 Polyp of colon 53723578 Active Not Available [facility] 3 06:15:25 Obese class I 0045702707576 07 Active 2022 Hayley Kumar MD [address], [place], [address] , [facility] 3 12:09:45 Acute sinusitis 77976128 Active 2022 Hayley Kumar MD [address], [facility] [address], [place], [address] , [facility] 3 14:59:06 Diarrhea 80822847 Active 2023 Hayley Kumar MD [address], [facility] [address], [place], [address] , [facility] 4 16:04:29 Clostridiu m difficile colitis 262079876 Active 2023 Hayley Kumar MD [address], [facility] [address], [place], [address] , [facility] 4 12:23:48 Peripheral venous insufficie ncy 15813853 Active 2023 Hayley Kumar MD [address], [facility], [place], [address] , [facility] 4 11:47:37 COVID-19 928861786 Active 2023 Hayley Kumar MD [address], [facility] [address], [place], [address] , [facility] 4 16:24:07 Acute urinary tract infection 575338802 Active 2023 Ayesha gonzalez, [place] [facility] 4 17:18:59 Senile osteoporos is 48586625 Active 2024 Krista gonzalez, [place] [facility] 5 16:40:37 Low back pain 107042600 Active 2024 Krista gonzalez, [facility] 5 17:57:24 Dyspnea 240450655 Active 2024 Krista gonzalez, [place] [facility] 5 16:46:47 Problem Notes None recorded. Procedures Surgical History Date Name Laterality Status Provider Name and Address Organization Details Recorded Time 05/28/19 24 Medicare Wellness CPT Code, subsequent completed Joanne Zhang RN [facility] [employer] 05/28/2023 15:53:57 12/14/19 23 Ortho - Cortisone Injection completed Amor Benjamin MD [address], [facility] [address], [place], [address], [facility] [employer] [facility] 12/13/2022 12:28:10 08/15/19 23 Ortho - Cortisone Injection completed Amor Benjamin MD [address], [facility] [address], [place], [address], [facility] [employer] [facility] 08/14/2022 15:45:01 12/29/19 21 Date of Last Colonoscopy completed Not Available [facility] 07/04/2022 06:12:02 10/21/19 20 Most Recent Bone Density completed Not Available [facility] 07/04/2022 06:12:02 Imaging Results None recorded. Procedure Notes None recorded. Medical Equipment None Reported. Allergies Allergen ID Allergen Name Allergen Category Reaction Reaction Severity Criticality Documentation Date Start Date Code Code System Note Provider Name and Address Organization Details Recorded Time 14097 Lipitor medicatio n myalgias (muscle pain) Not available Not available 07/04/2022 81501 5 RxNorm Not Available [facility] 3 06:19:51 85868 Substance with dihydropy ridine derivativ e structure and calcium channel marcella mechanism of action (substanc e) medicatio n edema mild low 06/25/2024 18505 [id number] ALVARADO Kumar MD [address] [facility], [facility] [address], [place], [address], [facility] [employer] 5 11:34:14 Medications Name Sig Start Date Stop Date Status Note LastModified by Organization Details LastModified Time fosinopril 10 mg tablet TAKE 1 TABLET DAILY 05/27 completed Not Available Not Available Not Available amoxicillin 500 mg capsule Take 1 capsule 3 times a day by oral route for 10 days. 12/02 completed Not Available Not Available Not Available prednisone 10 mg tablet TAKE 1 TABLET BY MOUTH TWICE DAILY 10/14 completed Not Available Not Available Not Available carvedilol 12.5 mg tablet Take 1 tablet twice a day by oral route. active Not Available Not Available No t Available azithromyci n 250 mg tablet TAKE 2 TABLETS BY MOUTH ON DAY 1, AND THEN TAKE 1 TABLET BY MOUTH ONCE A DAY ON DAY 2 THROUGH DAY 5 10/14 completed Not Available Not Available Not Available pravastatin 40 mg tablet TAKE 1 TABLET BY MOUTH AT BEDTIME 10/14 completed Not Available Not Available Not Available ofloxacin 0.3 % eye drops INSTILL 1 DROP THREE TIMES DAILY INTO THE AFFECTED EYE 2 DAYS PRIOR TO SURGERY AND CONTINUIN G FOR 1 WEEK AFTER SURGERY. active Not Available Not Available No t Available benzonatate 200 mg capsule Take 1 capsule 3 times a day by oral route. 10/05 completed Not Available Not Available Not Available valacyclovi r 1 gram tablet Take 1 tablet every 12 hours by oral route. 10/14 completed Not Available Not Available Not Available cephalexin 250 mg capsule TAKE 1 CAPSULE BY MOUTH THREE TIMES DAILY DIRECTED WITH FOOD FOR 7 DAYS 10/11 completed Not Available Not Available Not Available bupivacaine HCl 0.5 % (5 mg/mL) injection solution Take 20 mg by injection route. 06/01 completed Not Available Not Available Not Available cyanocobala min (vit B-12) 1,000 mcg tablet Take 1 tablet every day by oral route. active Not Available Not Available No t Available metronidazo le 500 mg tablet TAKE 1 TABLET BY MOUTH EVERY 8 HOURS 12/18 completed Not Available Not Available Not Available amlodipine 5 mg tablet TAKE 1 TABLET BY MOUTH DAILY 10/14 completed Not Available Not Available Not Available ciprofloxac in 500 mg tablet 05/28 completed Not Available Not Available Not Available sulfamethox azole 800 mg-trimetho prim 160 mg tablet TAKE 1 TABLET BY MOUTH EVERY 12 HOURS 06/25 completed Not Available Not Available Not Available ketorolac 0.5 % eye drops INSTILL 1 DROP 4 TIMES DAILY INTO THE AFFECTED EYE STARTING 2 DAYS PRIOR TO SURGERY AND CONTINUIN G FOR 2 WEEKS AFTER SURGERY. 06/25 completed Not Available Not Available Not Available prednisone 10 mg tablets in a dose pack Take 1 tab by mouth, 3 times a day for 3 daysTake 1 tab by mouth 2 times a day for 2 daysTake 1 tab by mouth once a day for 1 day 06/01 completed Not Available Not Available Not Available Tessalon Perles 100 mg capsule Take 1 capsule 3 times a day by oral route. 10/15 completed Not Available Not Available Not Available amoxicillin 875 mg tablet TAKE 1 TABLET BY MOUTH TWICE DAILY UNTIL GONE 06/25 completed Not Available Not Available Not Available Vitamin D3 10 mcg (400 unit) tablet Take 1 tablet every day by oral route. 2021 active Not Available Not Available Not Avai lable prednisolon e acetate 1 % eye drops,suspe nsion INSTILL 1 DROP THREE TIMES DAILY INTO THE OPERATIVE EYE STARTING AFTER SURGERY AND CONTINUIN G FOR 3 WEEKS. active Not Available Not Available No t Available Kenalog 10 mg/mL suspension for injection Take 40 mg by injection route. 05/28 completed [facility]: [phone] Not Available Not Available Not Available baclofen 10 mg tablet Take 1 tablet 3 times a day by oral route. 08/14 completed Not Available Not Available Not Available fosinopril 40 mg tablet Take 1 tablet every day by oral route. active Not Available Not Available No t Available hydrochloro thiazide 12.5 mg capsule TAKE 1 CAPSULE BY MOUTH DAILY 2024 active Not Available Not Available Not Avai lable diclofenac sodium 75 mg tablet,stephania yed release TAKE 1 TABLET BY MOUTH TWICE DAILY 12/18 completed Not Available Not Available Not Available furosemide 20 mg tablet Take 1 tablet twice a day by oral route. 10/14 completed Not Available Not Available Not Available ergocalcife rol (vitamin D2) 1,250 mcg (50,000 unit) capsule TAKE 1 CAPSULE BY MOUTH ONCE A WEEK 05/04 completed Not Available Not Available Not Available methylpredn isolone 4 mg tablets in a dose pack Take by oral route as per package insert active Not Available Not Available No t Available albuterol sulfate HFA 90 mcg/actuati on aerosol inhaler Inhale 2 puffs every 4 hours by inhalatio n route. 2024 active Not Available Not Available Not Avai lable cefdinir 300 mg capsule TAKE 1 CAPSULE BY MOUTH EVERY 12 HOURS 06/21 completed Not Available Not Available Not Available rosuvastati n 20 mg tablet TAKE 1 TABLET BY MOUTH ONCE DAILY active Not Available Not Available No t Available Multivitami n 50 Plus tablet Take 1 tablet every day by oral route. 2021 active Not Available Not Available Not Avai lable PreserVisio n AREDS 4,296 mcg-226 mg-90 mg capsule Take 1 capsule every day by oral route. 04/10 completed Not Available Not Available Not Available naproxen otc daily 2013 active Not Available Not Available Not Avai lable Vitamin D3 10/10 completed Not Available Not Available Not Available multivitami n daily 10/10 completed Not Available Not Available Not Available lidocaine (PF) 5 mg/mL (0.5 %) injection solution Take 30 mg by injection route. 10/10 completed Not Available Not Available Not Available glucosamine -chondroiti n-mv-minera l#3 375 mg-300 mg-25 mg-0.5 mg tablet daily 11/12 completed Not Available Not Available Not Available Suprep Bowel Prep Kit 17.5 gram-3.13 gram-1.6 gram oral solution DILUTE. DRINK FULL AMOUNT EARLY EVENING BEFORE AND NEXT MORNING AT LEAST TWO HOURS BEFORE PROCEDURE . FOLLOW WITH 960ML OF WATER 10/10 completed Not Available Not Available Not Available ropivacaine (PF) 5 mg/mL (0.5 %) injection solution Take 40 mg by injection route. 05/28 completed [facility] [phone] Not Available Not Available Not Available Paxlovid 300 mg (150 mg x 2)-100 mg tablets in a dose pack TAKE 3 TABLETS TOGETHER (TWO 150 MG NIRMATREL VIR TABLETS AND ONE 100 MG RITONAVIR TABLET) BY MOUTH TWICE DAILY FOR 5 DAYS. 06/25 completed Not Available Not Available Not Available Vitals Date Recorded Body height Body mass index (BMI) Body weight Heart rate Body temperature Oxygen saturation Oxygen saturation in Arterial blood by Pulse oximetry Systolic blood pressure Diastolic blood pressure Provider Name and Address Organization Details Last Updated DateTime 4 175.26 cm 31.5 kg/m2 85193.1 7 g 88 /min 97 [degF] 97 % 97 % 110 mm[Hg] 60 mm[Hg] Ayesha [employer] [facility] [place] [facility] 4 15:36:58 Date Recorded Body height Body mass index (BMI) Body weight Heart rate Body temperature Oxygen saturation Oxygen saturation in Arterial blood by Pulse oximetry Systolic blood pressure Diastolic blood pressure Provider Name and Address Organization Details Last Updated DateTime 4 175.26 cm 31.2 kg/m2 03948.9 9 g 76 /min 97.6 [degF] 98 % 98 % 112 mm[Hg] 62 mm[Hg] TERESA Larson [employer] [facility] [employer] [facility] 4 10:53:05 Date Recorded Body height Body mass index (BMI) Body weight Heart rate Body temperature Oxygen saturation Oxygen saturation in Arterial blood by Pulse oximetry Systolic blood pressure Diastolic blood pressure Provider Name and Address Organization Details Last Updated DateTime 5 175.26 cm 32.5 kg/m2 36618.3 2 g 84 /min 97 [degF] 99 % 99 % 140 mm[Hg] 90 mm[Hg] Ayesha Lottre[employer] [facility] [employer] 5 11:26:19 Date Recorded Body height Body mass index (BMI) Body weight Heart rate Body temperature Oxygen saturation Oxygen saturation in Arterial blood by Pulse oximetry Systolic blood pressure Diastolic blood pressure Provider Name and Address Organization Details Last Updated DateTime 5 175.26 cm 32.9 kg/m2 273354. 1 g 89 /min 97 [degF] 98 % 98 % 162 mm[Hg] 80 mm[Hg] Ayesha Orenreinaldo [employer] [facility] [employer] 5 17:14:20 Date Recorded Body height Body mass index (BMI) Body weight Heart rate Body temperature Oxygen saturation Oxygen saturation in Arterial blood by Pulse oximetry Systolic blood pressure Diastolic blood pressure Provider Name and Address Organization Details Last Updated DateTime 4 175.26 cm 32.2 kg/m2 33492.1 4 g 72 /min 97.8 [degF] 98 % 98 % 118 mm[Hg] 72 mm[Hg] TERESA Larson [employer] [facility] [employer] [facility] 4 11:27:38 Social History Question Answer Notes LastModified by Organizat ion Details LastModified Time Tobacco Smoking Status Current Every Day Smoker Dennise gonzalez [facility] [employer] [facility] 12/13/2022 10:47:24 Do You Have An Advance Directive? No [id number] Information not available 07/04/2022 Are You Blind Or Do You Have Difficulty Seeing? No Information not available 12/13/2022 Are You Deaf Or Do You Have Serious Difficulty Hearing? No Information not available 12/13/2022 What Type Of Diet Are You Following? REGULAR [id number] Information not available 07/04/2022 Have There Been Any Changes To Your Family Or Social Situation? No Information not available 12/13/2022 What Is The Fluoride Status Of Your Home? Unknown Information not available 12/13/2022 Are There Any Guns Present In Your Home? No Information not available 12/13/2022 Do You Use Insect Repellent Routinely? No Information not available 12/13/2022 Where [facility] You [facility]? [facility] Information not available 12/13/2022 Guns Present In The Home? No [email or web address] Information not available 05/28/2023 Are You Able To Care For Yourself? Yes [email or web address] Information not available 05/28/2023 Are You Blind Or Do Yo Have Difficulty Seeing? No [email or web address] Information not available 05/28/2023 Are You Deaf Or Do You Have Serious Difficulty Hearing? No [email or web address] Information not available 05/28/2023 Live Alone Of With Others? With Others [email or web address] Information not available 05/28/2023 What Was The Date Of Your Most Recent Tobacco Screening? 05/28/2023 [email or web address] Information not available 05/28/2023 What Is Your Current Pack Years? 30ormorepackyears [email or web address] Information no t available 05/28/2023 Do You Have Any Pets? No Information not available 12/13/2022 What Is Your Relationship Status? [id number] Information not available 07/04/2022 Do You Have Smoke And Carbon Monoxide Detectors In Your Home? Yes Information not available 12/13/2022 Are You Passively Exposed To Smoke? Yes Information not available 12/13/2022 Are There Any Smokers In Your House? Yes Information not available 12/13/2022 How Much Tobacco Do You Smoke? 1 PPD [id number] Information not available 07/04/2022 Do You Use Sunscreen Routinely? No Information not available 12/13/2022 How Many Years Have You Smoked Tobacco? 34 Information not available 12/13/2022 Have You Recently Traveled Abroad? No Information not available 12/13/2022 Do You Have Difficulty Walking Or Climbing Stairs? No Information not available 12/13/2022 Do You Have Any Dietary Restrictions? No Information not available 12/13/2022 Sex: Unknown Functional Status Question Answer Note LastModified by Organizat ion Details LastModified Time What is your level of alcohol consumption? None [id number] Information not available 07/04/2022 Do you or have you ever used smokeless tobacco? Never used smokeless tobacco [id number] Information not available 07/04/2022 Do you have transportation difficulties? No Information not available 12/13/2022 Are you able to walk? YESWOREST Information not available 12/13/2022 Do you have difficulty doing errands alone? No Information not available 12/13/2022 Are you able to care for yourself? Yes Information n ot available 12/13/2022 What is your occupation? retired Information not available 12/13/2022 Do you have difficulty dressing or bathing? No Information not available 12/13/2022 Do you or have you ever used e-cigarettes or vape? Never used electronic cigarettes Information not available 12/13/2022 What is your exercise level? Occasional [id number] Information not available 07/04/2022 Mental Status Question Answer Note LastModified by Organization D etails LastModified Time Do you have difficulty concentrating, remembering or making decisions? No Information no t available 12/13/2022 Family History Relationship Description Onset Age of this Age Resolved Age Notes LastModified by Organization Details LastModified Time Father Family history of malignant neoplasm Not available 08/10/ 2023 10:47:21 Father Hypertensive disorder [id number] Not available 07/04/2022 06:12:05 Notes:Mother 72 from ca ncer of the colon and hypertension. Father 72 from suicide, hypertension and cancer of the pancreas. Has two brothers and two sisters. One sister of [place] colon and others living and in good health. One brother of [place] Lung and CAD Medical History Condition Response NERVE DISEASE N BLINDNESS N RHEUMATIC FEVER N KIDNEY STONES N BLADDER PROBLEMS N MRSA N OTHER # 1 N POLIO N LUNG DISEASE/DISORDER N HISTORY OF DRUG ABUSE N RADIATION / CHEMOTHERAPY N COPD N Other # 2 N BLOOD DISEASES N EAR OR HEARING PROBLEMS N MUMPS N SHINGLES N BOWEL PROBLEMS N DEPRESSION (INCLUDING POST ) N STROKE/TIA N ULCERS N BENIGN PROSTATIC HYPERPLASIA N MEASLES N HYPOTENSION N MYOCARDIAL INFARCTION N OBESITY N GERD/NAUSEA N ANEURYSM N URINARY/BLADDER/KIDNEY PROBLEMS N CORONARY ARTERY DISEASE (CAD) N ADDICTION CONCERNS N ENDOMETRIOSIS N Impotence N USE OF BLOOD THINNERS N SKIN PROBLEMS N GASTROINTESTINAL DISORDER N PERIPHERAL VASCULAR DISEASE N MUSCLE,JOINT OR BONE PROBLEMS N GASTROINTESTINAL BLEEDING N BLOOD CLOTS N ASTHMA N CATARACTS N ERECTILE DYSFUNCTION N VARICOSITIES N GI PROBLEMS Y Low Testosterone N INFERTILITY N AIDS/HIV N CHEMOTHERAPY / RADIATION N LIVER DISEASE N MALE HYPOGONADISM N HYPERTENSION Y Deficiency N TOURETTE'S N ANXIETY DISORDER N BLOOD TRANSFUSION N ANEMIA/BLOOD DISORDER N CHRONIC EAR INFECTIONS N BRONCHITIS N TUBERCULOSIS N GLAUCOMA N FOOT PROBLEM N DIVERTICULITIS N CHICKENPOX N SLEEP APNEA N INFECTIOUS DISEASE N HEART ARRHYTHMIA N PROSTATE N INSOMNIA N HIGH CHOLESTEROL / HYPERLIPIDEMIA Y HYPERTHYROIDISM N EYE PROBLEMS N EDEMA N CHRONIC PAIN SYNDROME N HYPOTHYROIDISM N CAROTID BLOCKAGE N CONSTIPATION N BACK / NECK PROBLEMS N HAVE YOU BEEN HOSPITALIZED OR SEEN IN [facility] IN THE PAST YEAR ? N ATHEROSCLEROSIS N BREAST PROBLEMS N DIALYSIS N ECZEMA N OSTEOPOROSIS N ARTHRITIS Y NO SIGNIFICANT PAST MEDICAL HISTORY N APPENDICITIS N DIABETES, TYPE N BAD TEETH N ENT N HEARTBURN / REFLUX N AUTISM SPECTRUM DISORDER (ASD) N HEPATITIS / LIVER DISEASE N GOUT N SLEEP DISORDER N ALZHEIMER'S DISEASE N Brain Problems N HERPES N DEMENTIA N HEADACHES/MIGRAINES N SEIZURES/EPILEPSY N VASCULAR DISEASE N PACEMAKER N Blood Disorder N DIZZINESS N HEART DISEASE/HEART PROBLEMS N KIDNEY DISEASE N MULTIPLE SCLEROSIS N CARDIAC ARRHYTHMIA N CANCER: SPECIFY N ATRIAL FIBRILLATION N Gall Stones N PULMONARY EMBOLISM N AUTOIMMUNE DISEASE N Gynecological History Statement/Question Response Date of Last Mammogram 03/13/2021 Date of Last Colonoscopy 12/28/2020 Most Recent Bone Density 10/21/2019 Obstetrics History GPAL:G 0 P 0 0 0 0 Past Encounters Encounter ID Performer Location Encounter Start Date Encounter Closed Date Diagnosis/Indication Diagnosis SNOMED-CT Code Diagnosis ICD10 Code Diagnosis Note [id number] Hayley Kumar MD [facility] [place] [address] [place] [address] 10/11/2020 00:00:00 10/11/2020 11:32:33 [id number] Hayley Kumar MD [facility] [place] [address] [facility] [address] , [place] [address] 04/11/2021 00:00:00 04/11/2021 11:40:03 [id number] Amor Benjamin MD [facility] [place] [address] [facility] [address] [place] [address] 05/04/2021 00:00:00 05/04/2021 11:34:47 [id number] Amor Benjamin MD [facility] [place] [address] [facility] [address] [place] [address] 06/01/2021 00:00:00 06/01/2021 12:15:10 [id number] Amor Benjamin MD [facility] [place] [address] [place] [address] 09/07/2021 00:00:00 09/07/2021 12:54:02 [id number] Hayley Kumar MD [facility] [place] [address] [facility] [address] [place] [address] 10/10/2021 00:00:00 10/10/2021 11:21:40 [id number] Amor Benjamin MD [facility] [place] [address] [place] [address] 12/18/2021 00:00:00 12/18/2021 10:37:13 [id number] Hayley Kumar MD [facility] [place] [address] [place] [address] y , [place] [address] 04/10/2022 00:00:00 04/10/2022 11:58:56 [id number] Amor Benjamin MD [facility] [place] [address] [place] [address] 04/12/2022 00:00:00 04/12/2022 12:04:14 [id number] Amor Benjamin MD [facility] [place] [address] [place] [address] 08/14/2022 15:00:12 08/14/2022 15:54:32 Pain of bilateral knee joints [id number] M25.561 M25.562 Osteoarthr itis of left knee joint [id number] 31576 M17.12 Osteoarthr itis of right knee joint [id number] 80740 M17.11 [id number] Hayley Kumar MD [facility] Internal Med [facility] [address] [place] [address] , [place] [address] 10/30/2022 11:49:43 10/30/2022 12:18:23 Benign essential hypertension 9297417 I10 Pure hypercholesterolemia 468448670 E78.00 Polyp of colon 63270990 K63.5 Obese class I [id number] 52231 E66.9 Vitamin D deficiency 347 81487 E55.9 [id number] Amor Benjamin MD [facility] [place] [address] [place] [address] 12/13/2022 10:46:17 12/13/2022 12:38:03 Osteoarthritis of left knee joint 1325694305 14675 M17.12 Osteoarthr itis of right knee joint 9910583420 32295 M17.11 Pain of bi lateral knee joints 2942165151 70420 M25.561 M25.585 [id number] Hayley Kumar MD [facility] Internal Med [facility] [address] [facility], [facility] [address] [place] [address] 05/28/2023 15:15:44 05/28/2023 16:30:11 Adult health examination 962701959 Z00.00 Screening for disorder 767184575 Z13.9 Benign ess ential hypertension 5561689 I10 Pure hypercholesterolemia 011361171 E78.00 Diarrhea 02713415 K52.89 R19.7 Obese class I 0913004089 76958 E66.9 [id number] Hayley Kumar MD [facility] Internal Med [address] , [place] [address] 06/21/2023 10:33:17 06/21/2023 11:14:41 Benign essential hypertension 4527947 I10 Pure hypercholesterolemia 952469880 E78.00 Clostridiu m difficile colitis 411997653 A04.72 Obese class I 6434413579 81484 E66.9 [id number] Hayley Kumar MD [facility] Internal Med [address] [place] [address] 12/19/2023 11:20:12 12/19/2023 11:57:18 Benign essential hypertension 4763641 I10 Pure hypercholesterolemia 158438301 E78.00 Obese class I 2075802316 18922 E66.9 Peripheral venous insufficiency 16588844 I87.2 Vitamin D deficiency 347 67601 E55.9 [id number] Hayley Kumar MD [facility] Primary Care [facility] [address] [facility] [address] [place] [address] 06/25/2024 11:17:58 06/25/2024 12:07:10 Benign essential hypertension 0462933 I10 Pure hypercholesterolemia 779267668 E78.00 Peripheral venous insufficiency 97915286 I87.2 Obese class I 5491358208 23078 E66.9 [id number] Hayley Kumar MD [facility] Internal Med [place] [address] [facility] [address] [place] [address] 10/14/2024 16:54:32 10/14/2024 18:02:54 General examination of patient 446479135 Z00.00 Benign ess ential hypertension 2858450 I10 Pure hypercholesterolemia 779539173 E78.00 Low back strain 95698264 1 S39.012A Obese class I 2540295501 52245 E66.9 Health Concerns Section Related Observation LastModified by Organization Detai ls LastModified Time None Recorded Concern Status LastModified by Organization Details LastModified Time None Recorded Advance Directives Directive N: Payers Insurance Date Sequence Insurance Name Policy Number Policy Higgins Covered Member ID Higgins Member ID Guarantor Name 10/16/2024 1 [facility] (MEDICARE REPLACEMENT/A DVANTAGE - PPO) [id number] Jenna Gillette [id number] Jenna Gillette Notes Date Note Type Note Provider Name and Address Organization Details Recorded Time 4 text/htm l Patient Name: Jenna Rodriguezate Of Service: Saturday ( 05.28.2023 ): 1955 Age: 67 There has been approximately a 10 lb weight loss since 10/30/2022. This represents approximately a 4.5% change in weight. Weight change attributable to lifestyle changes. Vital Signs:Blood Pressure: Sitting Rt. Arm 110/60Pulse: Sitting 88 /min and RegularRespiratory Rate: 12Height 69 in or 1.8 mWeight 213 lb or 96.6 kgBMI 31.5Temperature: 97 F or 36.1 CPulse Oximetry: 97 % at rest on no oxygen Chief Complaint: Addressed in HPI Problems or conditions discussed in the HPI were the only ones reviewed during the encounter.Only social and family history addressed in the HPI were reviewed during this encounter. A significant, separate E/M service was performed to evaluate the current and new problems. Attendant(s): HusbandConstitutional and Systemic Symptoms:weight loss and generalized fatigue Medication Reconciliation: from medication list. Opjsdqycgrq59/22/2022 : Echocardiogram demonstrated some septal hypertrophy without outflow obstruction. Normal left ventricular systolic function was noted. Estimated EF was 60%. 07/27/2021: Pharmacological stress test demonstrated normal ejection fraction of 60%. Normal myocardial perfusion imaging with no evidence of ischemia or scar. 05/29/2022: Mammogram negative for malignancy repeat in one year.05/29/2022 : Bone density scan was normal repeat in two years 05/30/2022: CT scan of the lungs low-dose negative for malignancy 05-26-2023: CT scan of the abdomen pelvis reveals coronary artery calcification. Gallbladder normal. Kidneys mild perinephric stranding bilaterally. No hydronephrosis. Pelvis had a gas bubble in the nondependent portion of the urinary bladder. History of Present Illness Reviewed the findings of the preventative health visit. Addressed all areas with the patient, patient's family or caregivers. Preventative examinations and testing immunizations - vaccinations, colonic neoplasm screening, mammograms and LDCT thorax all reviewed and ordered where patient was amenable to the recommendations. Cognitive function was normal. Depression addressed and where necessary medications were adjusted or instituted. End of life and living will briefly discussed with patient and where these can be filled out and legally executed. Other blood and imaging studies were ordered if considered necessary. Other recommendations may be found in the encounter note. #1. Diarrhea duration approximately two weeks. Frequency more than 5-10 times per day. Usually water consistency. Occasionally have some associated small amounts of blood. Denies any fever, chills or other constitutional or systemic symptoms although has lost approximately 10 lb over the same interval. Did go the emergency room several days ago because of fatigue and lightheadedness. Received IV fluids. Does feel somewhat better but still having the diarrhea symptoms. Was placed on ciprofloxacin for possible urinary tract infection. This is probably based a more upon the perinephric stranding noted on the CT scan of the abdomen. No other members of the family have had a similar complaints. Has not had any unusual travel or consumption of any seafood etc..: #2. Essential Hypertension: Stage: Stage I Interval Neurological Complaints no headaches, dizziness, weakness, visual changes, ataxia, aphasia and apraxia. No shortness of breath, orthopnea or cardiovascular symptoms. No other symptoms related to end organ damage. Pressure has been under excellent control. Currently normal. No other end organ symptoms or findings. Therapy reviewed regarding management of hypertension and includes salt restriction and Amlodipine, Coreg, Hydrochlorothiazide and Monopril. #3. Type II Hypercholesterolaemia: Currently taking medication and tolerating well. No interval complaints of any muscle pain or arthralgia. No significant liver changes with medications. Last lipid panel: fair control. Therapy reviewed regarding treatment of cholesterol management and include diet and Pravachol. #4. Hx of obesity. Currently Class 1 Obesity BMI 30-34.99. Has tried numerous dietary support and supplements with no benefit. Instructed on the health consequences of the obese status particularly cancer - diabetes and heart disease. Discussed new modalities of weight loss including GLP-1 medications that are used to treat diabetes. Potential candidate for bariatric surgery: Yes. Wishes to be evaluated by Dietary: No and was offered to be evaluated and instructed by silver holloware assembler on weight loss diet. Active Medication ListAmlodipine 5 MG (TABLET - ORAL) One DailyHydrochlorothiazide 12.5 MG (TABLET - ORAL) Once DailyPravachol 40 MG (TABLET - ORAL) Two Hs For CholesterolMonopril 40 MG (TABLET - ORAL) One DailyCoreg 12.5 MG (TABLET - ORAL) One BidMultivitamin DailyPreservision Vitamins DailyVitamin B12 Daily Adverse Drug Reactions ReviewedLipitor Myalgia Vaccination and Vxpozaynzvbc7531-91 Krexrnotz5482-72 Tetanus Booster Surgical Nsojsby0357-37 Tubal Ligation Preventative Testing Confirmed by Our Vkthruw3711/08/2022 DDMUGPPBPCNCH53/30/2023 ALBUMIN 3.9 G/DL N005/29/2022 MAMMOGRAM LDCT DEXA SCAN12/28/2020 COLONOSCOPY (5 YEARS) 12/28/2025 Social HistorySmokes one pack daily and has done so for 16 years. 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 72 from cancer of the colon and hypertension. Father 72 from suicide, hypertension and cancer of the pancreas.Has two brothers and two sisters. One sister of CA colon and others living and in good health. One brother of CA Lung and CAD Hayley Kumar MD [address] [facility], [facility] [address], [place], [address], [facility] 05/28/2023 16:10:21 4 text/htm l Patient Name: Jenna CamposreaDate Of Service: Saturday ( 06.21.2023 ): 1955 Age: 67 There has been approximately a 2 lb weight loss since 05/28/2023. This represents approximately a .9% change in weight. Weight change attributable to lifestyle changes. Vital Signs:Blood Pressure: Sitting Rt. Arm 112/62Pulse: Sitting 76 /min and RegularRespiratory Rate: 12Height 69 in or 1.8 mWeight 211 lb or 95.7 kgBMI 31.2Temperature: 97.6 F or 36.4 CPulse Oximetry: 98 % at rest on no oxygen Chief Complaint: Addressed in HPI Problems or conditions discussed in the HPI were the only ones reviewed during the encounter.Only social and family history addressed in the HPI were reviewed during this encounter. Attendant(s): NoneConstitutional and Systemic Symptoms:none Medication Reconciliation: from medication list. Jsklsvptsbl64/22/2022 : Echocardiogram demonstrated some septal hypertrophy without outflow obstruction. Normal left ventricular systolic function was noted. Estimated EF was 60%. 07/27/2021: Pharmacological stress test demonstrated normal ejection fraction of 60%. Normal myocardial perfusion imaging with no evidence of ischemia or scar. 05/29/2022: Mammogram negative for malignancy repeat in one year.05/29/2022 : Bone density scan was normal repeat in two years 05/30/2022: Low-dose CT scan the lungs negative for malignancy 05-26-2023: CT scan of the abdomen pelvis reveals coronary artery calcification. Gallbladder normal. Kidneys mild perinephric stranding bilaterally. No hydronephrosis. Pelvis had a gas bubble in the nondependent portion of the urinary bladder. History of Present Illness #1. Essential Hypertension: Stage: Stage I Interval Neurological Complaints no headaches, dizziness, weakness, visual changes, ataxia, aphasia and apraxia. No shortness of breath, orthopnea or cardiovascular symptoms. No other symptoms related to end organ damage. Pressure has been under excellent control. Currently normal. No other end organ symptoms or findings. Therapy reviewed regarding management of hypertension and includes weight loss and Amlodipine, Coreg, Hydrochlorothiazide and Monopril. #2. Type II Hypercholesterolaemia: Currently taking medication and tolerating well. No interval complaints of any muscle pain or arthralgia. No significant liver changes with medications. Last lipid panel: excellent control. Therapy reviewed regarding treatment of cholesterol management and include diet and Rosuvastatin. #3. Follow-up on Clostridium difficile I will colitis clinically stable. No recurrent symptomatology. Did did receive some Flagyl but did not take an entire dosage but got better either way. Instructed to keep this on hand let us know of any type recurrent symptoms may have to be recheck at that time.: #4. Hx of obesity. Currently Class 1 Obesity BMI 30-34.99. Has tried numerous dietary support and supplements with no benefit. Instructed on the health consequences of the obese status particularly cancer - diabetes and heart disease. Discussed new modalities of weight loss including GLP-1 medications that are used to treat diabetes. Potential candidate for bariatric surgery: No. Wishes to be evaluated by Dietary: No and was offered to be evaluated and instructed by silver holloware assembler on weight loss diet. Active Medication ListAmlodipine 5 MG (TABLET - ORAL) One DailyHydrochlorothiazide 12.5 MG (TABLET - ORAL) Once DailyRosuvastatin 20 MG TABLET One DailyMonopril 40 MG (TABLET - ORAL) One DailyCoreg 12.5 MG (TABLET - ORAL) One BidMultivitamin DailyPreservision Vitamins DailyVitamin B12 Daily Adverse Drug Reactions ReviewedLipitor Myalgia Vaccination and Vknovckjayad4810-59 Yjgiobuxb5842-57 Tetanus Booster Surgical Dddazuo0153-69 Tubal Ligation Preventative Testing Confirmed by Our Nmgfxkf7105/31/2023 ALBUMIN 3.6 G/DL N011/08/2022 GKTVEIWBVYYRP14/24/2023 MAMMOGRAM LDCT DEXA SCAN12/28/2020 COLONOSCOPY (5 YEARS) 12/28/2025 Social HistorySmokes one pack daily and has done so for 16 years. 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 72 from cancer of the colon and hypertension. Father 72 from suicide, hypertension and cancer of the pancreas.Has two brothers and two sisters. One sister of CA colon and others living and in good health. One brother of CA Lung and CAD Hayley Kumar MD [address] [facility], [facility] [address], [place], [address], [facility] 06/21/2023 11:10:30 4 text/htm l Patient Name: Jenna CamposGuillermoate Of Service: December ( 12.19.2023 ): 1955 Age: 68 There has been approximately a 7 lb weight gain since 06/21/2023. This represents approximately a 3.3% change in weight. Weight change attributable to lifestyle changes. Vital Signs:Blood Pressure: Sitting Rt. Arm 118/72Pulse: Sitting 72 /min and RegularRespiratory Rate: 14Height 69 in or 1.8 mWeight 218 lb or 98.9 kgBMI 32.2Temperature: 97.8 F or 36.6 CPulse Oximetry: 98 % at rest on no oxygen Chief Complaint: Addressed in HPI Problems or conditions discussed in the HPI were the only ones reviewed during the encounter.Only social and family history addressed in the HPI were reviewed during this encounter. Attendant(s): NoneConstitutional and Systemic Symptoms:none Medication Reconciliation: from medication list. Usyzymxhoir22/24/2023: Mammogram negative for malignancy repeat in one year.05/29/2022 : Bone density scan was normal repeat in two years 05/30/2022: Low-dose CT scan the lungs negative for malignancy 05-26-2023: CT scan of the abdomen pelvis reveals coronary artery calcification. Gallbladder normal. Kidneys mild perinephric stranding bilaterally. No hydronephrosis. Pelvis had a gas bubble in the nondependent portion of the urinary bladder. 10-03-2023: Venous doppler no DVT but significant venous insufficiency both greater saphenous vein bilaterally History of Present Illness #1. Essential Hypertension: Stage: Stage I Interval Neurological Complaints no headaches, dizziness, weakness, visual changes, ataxia, aphasia and apraxia. No shortness of breath, orthopnea or cardiovascular symptoms. No other symptoms related to end organ damage. Pressure has been under excellent control. Currently normal. No other end organ symptoms or findings. Therapy reviewed regarding management of hypertension and includes salt restriction and Amlodipine, Coreg, Hydrochlorothiazide and Monopril. #2. Type II Hypercholesterolaemia: Currently taking medication and tolerating well. No interval complaints of any muscle pain or arthralgia. No significant liver changes with medications. Last lipid panel: fair control. Therapy reviewed regarding treatment of cholesterol management and include diet and Rosuvastatin. #3. Venous Insufficiency: Hx of venous insufficiency of the lower legs. No change in swelling, varicosities, erythema or ulcerations. No shortness of breath or other cardiopulmonary symptoms. #4. Hx of obesity. Currently Class 1 Obesity BMI 30-34.99. Has tried numerous dietary support and supplements with no benefit. Instructed on the health consequences of the obese status particularly cancer - diabetes and heart disease. Discussed other modalities of weight loss no. Potential candidate for bariatric surgery: No. Wishes to be evaluated by Dietary: No and was offered to be evaluated and instructed by silver holloware assembler on weight loss diet. Active Medication ListAmlodipine 5 MG (TABLET - ORAL) One DailyHydrochlorothiazide 12.5 MG (TABLET - ORAL) Once DailyRosuvastatin 20 MG TABLET One DailyMonopril 40 MG (TABLET - ORAL) One DailyCoreg 12.5 MG (TABLET - ORAL) One BidMultivitamin DailyPreservision Vitamins DailyVitamin B12 DailyProbiotic One Daily TEST RESULT RANGE UNITSLIPID PANEL, STANDARD Date: 4CHOLESTEROL, TOTAL 103 <200 MG/DLHDL CHOLESTEROL 33 > OR = 50 MG/DLTRIGLYCERIDES 131 <150 MG/DLLDL-CHOLESTEROL 49 MG/DL (CALC) Hayley Kumar MD [address] [facility], [facility] [address], [place], [address], [facility] 12/19/2023 11:53:29 5 text/htm l Patient Name: Jenna Graham Of Service: June ( 06.25.2024 ): 1955 Age: 68 There has been approximately a 2 lb weight gain since 12/19/2023. This represents approximately a .9% change in weight. Weight change attributable to lifestyle changes. Vital Signs:Blood Pressure: Sitting Rt. Arm 140/90Pulse: Sitting 84 /min and RegularRespiratory Rate: 16Height 69 in or 1.8 mWeight 220 lb or 99.8 kgBMI 32.5 Chief Complaint: Addressed in HPI Problems or conditions discussed in the HPI were the only ones reviewed during the encounter.Only social and family history addressed in the HPI were reviewed during this encounter. Attendant(s): NoneConstitutional and Systemic Symptoms:none Medication Reconciliation: from medication list. [id number]: CT scan of the abdomen pelvis reveals coronary artery calcification. Gallbladder normal. Kidneys mild perinephric stranding bilaterally. No hydronephrosis. Pelvis had a gas bubble in the nondependent portion of the urinary bladder. 10-03-2023: Venous doppler no DVT but significant venous insufficiency both greater saphenous vein bilaterally History of Present Illness #1. Essential Hypertension: Stage: Stage I Interval Neurological Complaints no headaches, dizziness, weakness, visual changes, ataxia, aphasia and apraxia. No shortness of breath, orthopnea or cardiovascular symptoms. No other symptoms related to end organ damage. Pressure has been under fair control. Currently diastolic elevation only. No other end organ symptoms or findings. Therapy reviewed regarding management of hypertension and includes salt restriction and Coreg, Furosemide, Hydrochlorothiazide and Monopril. #2. Type II Hypercholesterolaemia: Currently taking medication and tolerating well. No interval complaints of any muscle pain or arthralgia. No significant liver changes with medications. Last lipid panel: fair control. Therapy reviewed regarding treatment of cholesterol management and include diet and Rosuvastatin. #3. Venous Insufficiency: Hx of venous insufficiency of the lower legs. No change in swelling, varicosities, erythema or ulcerations. No shortness of breath or other cardiopulmonary symptoms. #4. Hx of obesity. Currently Class 1 Obesity BMI 30-34.99. Has tried numerous dietary support and supplements with no benefit. Instructed on the health consequences of the obese status particularly cancer - diabetes and heart disease. Discussed other modalities of weight loss no . Potential candidate for bariatric surgery: No. Wishes to be evaluated by Dietary: No and was offered to be evaluated and instructed by silver holloware assembler on weight loss diet. Active Medication ListHydrochlorothiazide 12.5 MG (TABLET - ORAL) Once DailyRosuvastatin 20 MG TABLET One DailyMonopril 40 MG (TABLET - ORAL) One DailyCoreg 12.5 MG (TABLET - ORAL) One BidMultivitamin DailyPreservision Vitamins DailyVitamin B12 DailyProbiotic One DailyFurosemide 20 MG TABLET One Daily Adverse Drug Reactions ReviewedLipitor MyalgiaCalcium Blockers Edema Vaccination and Immunization(X) 2009- INFLUENZA(X) 2008- TETANUS BOOSTER Surgical Dzznbkp5204-80 Tubal Ligation Preventative Testing( ) 04/16/2024 Optometry( ) 12/24/2023 Albumin 3.9 G/DL N( ) 12/19/2023 Ophthalmology( ) 06/21/2023 Mammogram 06/21/2025(X) 06/21/2023 LDCT 06/21/2024(X) 05/29/2022 DEXA Scan 05/29/2024( ) 12/28/2020 Colonoscopy (5 Years) 12/28/2025 Social HistorySmokes one pack daily and has done so for 16 years. 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 72 from cancer of the colon and hypertension. Father 72 from suicide, hypertension and cancer of the pancreas.Has two brothers and two sisters. One sister of CA colon and others living and of dementia and CA Lung. . One brother of CA Lung and CAD TEST RESULT RANGE UNITSCBC (INCLUDES DIFF/PLT) Date: 12/24/2023WHITE BLOOD CELL COUNT 11.2 3.8-10.8 THOUSAND/ULHEMOGLOBIN 12.9 11.7-15.5 G/DLHEMATOCRIT 40.2 35.0-45.0 %PLATELET COUNT 274 140-400 THOUSAND/ULCOMPREHENSIVE METABOLIC PANEL, PLASMA Date: 12/24/2023SODIUM 139 135-146 MMOL/LPOTASSIUM 3.5 3.4-4.8 MMOL/LGLUCOSE 100 65-99 MG/DLUREA NITROGEN (BUN) 12 7-25 MG/DLCREATININE 0.69 0.50-1.05 MG/DLEGFR 94 > OR = 60 ML/MIN/1.38N8ELSNAFFPJ, TOTAL 0.9 0.2-1.2 MG/DLALKALINE PHOSPHATASE 85 37-153 U/LAST 15 10-35 U/LALT 16 6-29 U/LLIPID PANEL, STANDARD Date: 4CHOLESTEROL, TOTAL 141 <200 MG/DLHDL CHOLESTEROL 35 > OR = 50 MG/DLTRIGLYCERIDES 160 <150 MG/DLLDL-CHOLESTEROL 80 MG/DL (CALC)T4, FREE Date: 12/24/2023T4, FREE 0.9 0.8-1.8 NG/DLTSH Date: 12/24/2023TSH 1.92 0.40-4.50 MIU/LVITAMIN D,25-OH,TOTAL,IA Date: 12/24/2023VITAMIN D,25-OH,TOTAL,IA 36 30-100 NG/ML Hayley Kumar MD [address] [facility], [facility] [address], [place], [address], [place] [facility] 06/25/2024 11:39:52 5 text/htm l Patient Name: Jenna CamposreaDate Of Service: Saturday ( 10.14.2024 ): 1955 Age: 69 There has been approximately a 3 lb weight gain since 06/25/2024. This represents approximately a 1.4% change in weight. Weight change attributable to lifestyle changes. Vital Signs:Blood Pressure: Sitting Rt. Arm 162/80Pulse: Sitting 89 /min and RegularRespiratory Rate: 16Height 69 in or 1.8 mWeight 223 lb or 101.2 kgBMI 32.9Temperature: 97 F or 36.1 CPulse Oximetry: 98 % at rest on no oxygen Chief Complaint: Addressed in HPI Problems or conditions discussed in the HPI were the only ones reviewed during the encounter.Only social and family history addressed in the HPI were reviewed during this encounter. A significant, separate E/M service was performed to evaluate the current and new problems. Attendants(s) + Usesdbuy-ga-pobArugwtplhsuje l and Systemic Symptoms:none Medication Reconciliation: from medication list. [id number]: CT scan of the abdomen pelvis reveals coronary artery calcification. Gallbladder normal. Kidneys mild perinephric stranding bilaterally. No hydronephrosis. Pelvis had a gas bubble in the nondependent portion of the urinary bladder. 10-03-2023: Venous doppler no DVT but significant venous insufficiency both greater saphenous vein bilaterally History of Present Illness Reviewed the findings of the preventative health visit. Addressed all areas with the patient, patient's family or caregivers. Preventative examinations and testing immunizations - vaccinations, colonic neoplasm screening and mammograms all reviewed and ordered where patient was amenable to the recommendations. Cognitive function see HPI but demonstrated no overall change in cognitive status . Depression addressed and where necessary medications were adjusted or instituted. End of life and living will briefly discussed with patient and where these can be filled out and legally executed. Other blood and imaging studies were ordered if considered necessary. Other recommendations may be found in the encounter note. #1. Essential Hypertension: Stage: normal Interval Neurological Complaints no headaches, dizziness, weakness, visual changes, ataxia, aphasia and apraxia. No shortness of breath, orthopnea or cardiovascular symptoms. No other symptoms related to end organ damage. Pressure has been under fair control. Currently marginally elevated and will recheck in two weeks. No other end organ symptoms or findings. Therapy reviewed regarding management of hypertension and includes salt restriction and Hydrochlorothiazide and Monopril. #2. Type II Hypercholesterolaemia: Currently taking medication and tolerating well. No interval complaints of any muscle pain or arthralgia. No significant liver changes with medications. Last lipid panel: fair control. Therapy reviewed regarding treatment of cholesterol management and include diet and Rosuvastatin. #3. Complaining some low back discomfort predominantly in the left sacroiliac area. Does have occasional sciatica down the right leg. But the left side is more new in origin. Denies any numbness, tingling, weakness, saddle anesthesia or any incontinence of urine or stool. Aggravated by bending stooping twisting and turning. Have suggested shot a try some medication like Alleve to see if there is any improvement of the pain. Will obtain radiographic studies of the area just to make sure there is nothing more grossly abnormal.: #4. Hx of obesity. Currently Class 1 Obesity BMI 30-34.99. Has tried numerous dietary support and supplements with no benefit. Instructed on the health consequences of the obese status particularly cancer - diabetes and heart disease. Discussed other modalities of weight loss no . Potential candidate for bariatric surgery: No. Wishes to be evaluated by Dietary: Yes. Wellness Evaluation PHQ-2 Score Last Two Weeks Last Two Weeks: 0: Not at all 1: Several Days 2: More than half 3: Almost Every day #1. Little interest or pleasure in doing things: Not At All :Score 0#2. Feeling down, depressed, or hopeless: Not At All :Score 0Score 0FAST Stage: 1 No functional decline Basic ADLS Ambulation Normal YesEating YesBed Transfer YesWalker NoCane NoFalls NoMultiple Falls NoBathing and Showering YesDressing YesFeeding YesFunctional Mobility YesPersonal Hygiene YesToilet Hygiene YesHome Safety Yes Instrumental ADLS House Work YesTaking Medications YesShopping YesTelephone YesUsing Technology YesTransportation YesPreparing Meals Yes Additional Topics Advanced Directives DeclinedLiving Will Declined Additional Comments Falls but has had episodes of vertigo manifested by nystagmus which appears to be somewhat positional. Mini Mental Status Exam OrientationYear 1Season 1Month 1Date 1Day 1Score: 5 LocationCountry 1County 1City 1Facility 1Room 1Score: 5 RegistrationBall 1Car 1Man 1Score: 3 AttentionD 1L 1R 1O 1W 1Score: 5 RecallHouse 1Car 1Airplane 1Score: 3 LanguageWatch 1Pencil 1Score: 2 RepetitionNo ifs, ands or buts 1Score: 1 SentenceWrite a Sentence 1Score: 1 ReadingClose Eyes 1Score: 1 PentagonsCopy Design 0Score: 0 CommandHand 1Fold In Half 1Put Down 1Score: 3 Total Test Score: 29 /30 Normal Possible Functional ImpairmentActivities of Daily Living: Probably NormalCommunication: Probably NormalMemory: Probably Normal Social and Physical Activities Drinking History: NoneExercise 20 Minutes per Week: No, do not exercise muchDifficulty Driving Car: NoOther Problems: None,Falling,Orthostatic,Tro uble Eating,Teeth Denture Problems,Problems using Telephone,Tiredness or fatigue Smoking History Quit SmokingCannabis History Does Not Use End Of Wellness Section Active Medication ListHydrochlorothiazide 12.5 MG (TABLET - ORAL) Once DailyRosuvastatin 20 MG TABLET One DailyMonopril 40 MG (TABLET - ORAL) One DailyCoreg 12.5 MG (TABLET - ORAL) One BidMultivitamin DailyPreservision Vitamins DailyVitamin B12 DailyProbiotic One Daily Adverse Drug Reactions ReviewedLipitor MyalgiaCalcium Blockers Edema Vaccination and Immunization (X) 2009- INFLUENZA(X) 2008- TETANUS BOOSTERImmunizations and Vaccinations Discussed and Implemented if feasible In the Office. Else referred to pharmacies. Surgical History 1991- Tubal Ligation Preventative Testing ( ) 09/29/2024 Ophthalmology( ) 09/18/2024 Optometry( ) 06/30/2024 Albumin 4.0 G/DL N( ) 06/21/2023 Mammogram 06/21/2025(X) 06/21/2023 LDCT 06/21/2024(X) 05/29/2022 DEXA Scan 05/29/2024( ) 12/28/2020 Colonoscopy (5 Years) 12/28/2025Preventative Testing Discussed and Scheduled if Acceptable to Patient Social HistorySmokes one pack daily and has done so for 16 years. 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 72 from cancer of the colon and hypertension. Father 72 from suicide, hypertension and cancer of the pancreas.Has two brothers and two sisters. One sister of CA colon and others living and of dementia and CA Lung. . One brother of CA Lung and CAD TEST RESULT RANGE UNITSCBC (INCLUDES DIFF/PLT) Date: 06/30/2024WHITE BLOOD CELL COUNT 7.9 3.8-10.8 THOUSAND/ULHEMOGLOBIN 12.3 11.7-15.5 G/DLHEMATOCRIT 37.4 35.0-45.0 %PLATELET COUNT 278 140-400 THOUSAND/ULCOMPREHENSIVE METABOLIC PANEL, PLASMA Date: 06/30/2024SODIUM 140 135-146 MMOL/LPOTASSIUM 3.5 3.4-4.8 MMOL/LGLUCOSE 109 65-99 MG/DLUREA NITROGEN (BUN) 12 7-25 MG/DLCREATININE 0.65 0.50-1.05 MG/DLEGFR 95 > OR = 60 ML/MIN/1.66R1GFGOMZVHZ, TOTAL 0.9 0.2-1.2 MG/DLALKALINE PHOSPHATASE 67 37-153 U/LAST 13 10-35 U/LALT 13 6-29 U/LLIPID PANEL, STANDARD Date: 06/30/2024HOLESTEROL, TOTAL 151 <200 MG/DLHDL CHOLESTEROL 43 > OR = 50 MG/DLTRIGLYCERIDES 159 <150 MG/DLLDL-CHOLESTEROL 82 MG/DL (CALC)T4, FREE Date: 06/30/2024T4, FREE 1.0 0.8-1.8 NG/DLTSH Date: 06/30/2024TSH 2.53 0.40-4.50 MIU/L Hayley Kumar MD [address] [facility], [facility] [address], [place], [address], [place] [facility] mSilica 10/14/2024 17:56:02 OBGyn Episode No OBEpisode recorded.
--- OUTSIDE RECORDS SUMMARY | 2024-10-18 13:06 | XMS_ITS | Continuity of Care Document ---
Author Organization [facility] Address [address] [place] [address] Phone Care Team Providers Care Manager Communication Name Role Phone Nia GREY, FACC, FSCAI, Cedric Unavailable U navailable Allergies, Adverse Reactions, Alerts Substance Reaction Status Criticality No Known Allergies Active No Inform ation Medications Medication Instructions Dosage Effective Dates (start - stop) Status Comments hydrochlorothiazide 12.5 mg capsule - Active carvedilol 12.5 mg tablet - Active fosinopril 40 mg tablet - Ac tive rosuvastatin 20 mg tablet - Active azithromycin 250 mg tablet - Active amlodipine 5 mg tablet - Act darek sulfamethoxazole 800 mg-trimethoprim 160 mg tablet TAKE 1 TABLET BY MOUTH EVERY 12 HOURS - Active Paxlovid 300 mg (150 mg x 2)-100 mg tablets in a dose pack TAKE 3 TABLETS TOGETHER (TWO 150 MG NIRMATRELVIR TABLETS AND ONE 100 MG RITONAVIR TABLET) BY MOUTH TWICE DAILY FOR 5 DAYS. - Active ketorolac 0.5 % eye drops INSTILL 1 DROP 4 TIMES DAILY INTO THE AFFECTED EYE STARTING 2 DAYS PRIOR TO SURGERY AND CONTINUING FOR 2 WEEKS AFTER SURGERY. - Active ofloxacin 0.3 % eye drops INSTILL 1 DROP THREE TIMES DAILY INTO THE AFFECTED EYE 2 DAYS PRIOR TO SURGERY AND CONTINUING FOR 1 WEEK AFTER SURGERY. - Active prednisolone acetate 1 % eye drops,suspension INSTILL 1 DROP THREE TIMES DAILY INTO THE OPERATIVE EYE STARTING AFTER SURGERY AND CONTINUING FOR 3 WEEKS. - Active amoxicillin 875 mg tablet TAKE 1 TABLET BY MOUTH TWICE DAILY UNTIL GONE - Active furosemide 20 mg tablet TAKE 1 TABLET BY MOUTH TWICE DAILY - Active Advance Directives Directive Yes / No Effective Date File Name No Information Encounters Encounter Description Practice Location Reason(s) For Visit Diagnoses Date Provider Providers Copied on Encounter [facility], [address] [place] [address], [id number] , tel: [phone] [facility] No Information 5 Ramadan Cedric. [address] [place] [address], [id number] , . tel: [phone] [facility] , [address] [place] [address], [id number] , tel: [phone] [facility] Encounter for screening for cardiovascular disordersEdemaFatigue Atherosclerotic cardiac diseaseNicotine dependence, unspecified, uncomplicatedHyperten sionHyperlipidemiaPal pitations 5 Ramadan Cedric. [facility] [place], [place], [id number] , . tel: [phone] Family History Family Member Type Diagnosis Age At Onset No Information Payers Payer name Insurance type Covered libertarian ID Authoriza tion(s) No Information Social History Type Description Quantity Date Captured Comments Sex Female Smoking Status No Information Chief Complaint And Reason For Visit No Information Reason For Referral Reason For Referral No Information History Of Present Illness Encounter Date Complaint History Of Prese nt Illness No Information Functional Status Date Functional Assessmen t No Information Instructions Date Instruction Additional Infor mation No Information Assessments Type Assessment Date No Information Patient Care Teams Name Effective Dates (start - stop) Status Members No Information
--- OUTSIDE RECORDS SUMMARY | 2024-10-18 13:06 | XMS_ITS | Encounter Summary ---
Author Organization [facility] Address [address] [place] [address] Care Team Providers Care Deputy Coroner Investigator Name Role Phone Laith Kumar MD Primary Care Provider Encounter Details Date Type Department Care Team (Late st Contact Info) Description 09/24/2024 Lab Requisition [facility] - DermPath Lab [address] [facility], [facility] [place] [address] Debby Yates MD [address] [facility] [address] [place] [address] Social History Tobacco Use Types Packs/Day Years Used Date Smoking Tobacco: Never Assessed Comments Unknown Sex and Gender Information Value Date Recorded Sex Assigned at Not on file 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 Jar 0. 5:29 PM T DERMATOPATHOLOGY LABORATORY Microscopic Description Specimen A. SKIN, [...] characteristic determined by the Dermatopathology Laboratory at [facility], directed by Dr. Jyotsna Escalona. These tests need not be, and therefore are not, approved by the [place] Food and Drug Administration. The tests are used for clinical purposes. Billing Codes Specimen Charges Stain Charges 28931 1 5:29 PM CDT DERMATOPATHOLOGY LABORATORY Embedded Images 5:29 PM CDT DERMATOPATHOLOGY LABORATORY Pathology/Cytolo gy TISSUE SPECIMEN FROM SKIN / Unknown 09/24/2024 1:02 PM CDT 09/25/2024 10:06 AM CDT us Debby Yates MD LAB - PATHOLOGY/CYTOLOGY ORD ERABLES Final Result DERMATOPATHOLOGY LABORATORY [facility] - Department of Dermatology [address], [address] [phone] documented in this encounter Visit Diagnoses Not on filedocumented in this encounter Care Teams Deputy Coroner Investigator Relationship Specialty Start Date End Date Laith Kumar MD [address] [place] [address] [address] [place] [id number] PCP - General 01/25/11 documented as of this encounter
--- OUTSIDE RECORDS SUMMARY | 2024-10-18 13:06 | XMS_ITS | Encounter Summary ---
Author Organization [facility] Address [address] [place] [address] Care Team Providers Care Outside Plant Field Engineer Name Role Phone Laith Kumar MD Primary Care Provider [phone] Encounter Details Date Type Department Care Team (Late st Contact Info) Description 03/09/2020 Lab Requisition [facility] DermPath Lab [address] [place] [id number] Stan Mckeon MD [address] [address] Social History Tobacco Use Types Packs/Day Years Used Date Smoking Tobacco: Never Assessed Comments Unknown Sex and Gender Information Value Date Recorded Sex Assigned at Not on file Legal Sex Female 6:03 PM SOURCING 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 Gender Identity Not on file Sexual Orientation Not on file documented as of this encounter Plan of Treatment Not on file documented as of this encounter Procedures Procedure Name Priority Date/Time Associated Diagnosis Comments DERMATOPATHOLOGY Routine 03/08/2020 12:0 0 AM SOURCING ASSISTANT documented in this encounter Results * DERMATOPATHOLOGY (03/08/2020 12:00 AM SOURCING ASSISTANT) Case Report Dermatopathology Report Case: [id number] Authorizing Provider: Stan Mckeon MD Collected: 03/08/2020 12:00 AM Ordering Location: [facility] DermPath Lab Received: 03/09/2020 11:49 AM Pathologist: Harmony Dempsey MD Specimen: Skin, left vertex scalp 0 1:41 PM SOURCING ASSISTANT DERMATOPATHOLOGY LABORATORY Final Diagnosis Specimen A. SKIN, left vertex scalp: GRANULOMATOUS DERMATITIS CONSISTENT WITH A RUPTURED CYST OR HAIR FOLLICLE (L72.0) PRESENT AT MARGIN (see microscopic description) 0 1:41 PM SOURCING ASSISTANT DERMATOPATHOLOGY LABORATORY at [address]1 SOURCING ASSISTANT Clinical History R/O pilar cyst 0 1:41 PM [facility] Gross Description Specimen A: Received is one formalin filled container labeled with the patient's name and designated left vertex scalp. The specimen consists of a punch excision measuring 7x7x6 mm. Jar 0. 0 1:41 PM [facility] Microscopic Description Specimen A. SKIN, left vertex scalp: Sections show a space extending from the epidermis into the dermis that resembles a dilated hair follicle or cyst. Surrounding this is an infiltrate with neutrophils, histiocytes, and multinucleated giant cells. These changes are present at the margin of the specimen. Additional deeper sections were obtained and reviewed. 0 1:41 PM [facility] Disclaimer An external and internal positive and negative controls are appropriate for the histochemical, immunohistochemical and immunofluorescence stain(s) in this case (if any), except where stated explicitly. The performance characteristics of the stain(s) cited in this report were developed and its performance characteristic determined by the Dermatopathology Laboratory at [facility], directed by Dr. Jyotsna Escalona. These tests need not be, and therefore are not, approved by the [place] Food and Drug Administration. The tests are used for clinical purposes. Billing Codes Specimen Charges Stain Charges 10192 1 0 1:41 PM [facility] Embedded Images 0 1:41 PM [facility] Pathology/Cytolog y TISSUE SPECIMEN FROM SKIN / Unknown 03/08/2020 03/09/2020 11:49 AM SOURCING ASSISTANT Stan Mckeon MD LAB - PATHOLOGY/CYTOLOGY ORD ERABLES Final Result DERMATOPATHOLOGY LABORATORY [facility] - Department of Dermatology [facility] [address] [place] [address], [address] [phone] documented in this encounter Visit Diagnoses Not on filedocumented in this encounter Care Teams Outside Plant Field Engineer Relationship Specialty Start Date End Date Laith Kumar MD [address] [place] [address] [address] [place] [address] PCP - General 01/25/11 documented as of this encounter
== END 2024-10-18 13:00 | disposition home or self-care (01) ==
PROVIDERS: PCP Internal Medicine; Visit Provider Internal Medicine
DX: M47.897 Other spondylosis, lumbosacral region (principal)
CPT/HCPCS: 72100

== ENCOUNTER 2024-11-02 14:47 | Outpatient (CLI) | payer MEDICARE, SELFPAY ==
--- OUTSIDE RECORDS SUMMARY | 2024-11-02 14:56 | XMS_ITS | Encounter Summary ---
Author Organization [facility] Address [address] [facility] [place] [address] Care Team Providers Care On Site Nurse Name Role Phone Laith Kumar MD Primary Care Provider [phone] Encounter Details Date Type Department Care Team (Late st Contact Info) Description 09/24/2024 Lab Requisition [facility] - DermPath Lab [address] [facility], [facility] [place] [address] Debby Yates MD [address] 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 Gender Identity Not on file Sexual Orientation Not on file documented as of this encounter Plan of Treatment Not on file documented as of this encounter Procedures Procedure Name Priority Date/Time Associated Diagnosis Comments DERMATOPATHOLOGY Routine 09/24/2024 1:02 PM CDT documented in this encounter Results * DERMATOPATHOLOGY (09/24/2024 1:02 PM CDT) Case Report Dermatopathology Report Case: [id number] Authorizing Provider: Debby Yates MD Collected: 09/24/2024 01:02 PM Ordering Location: [facility] - Received: 09/25/2024 10:06 AM [...] characteristic determined by the Dermatopathology Laboratory at [facility], directed by Dr. Jyotsna Escalona. These tests need not be, and therefore are not, approved by the [place] Food and Drug Administration. The tests are used for clinical purposes. Billing Codes Specimen Charges Stain Charges 26342 1 5:29 PM CDT DERMATOPATHOLOGY LABORATORY Embedded Images 5:29 PM CDT DERMATOPATHOLOGY LABORATORY Pathology/Cytolo gy TISSUE SPECIMEN FROM SKIN / Unknown 09/24/2024 1:02 PM CDT 09/25/2024 10:06 AM CDT us Debby Yates MD LAB - PATHOLOGY/CYTOLOGY ORD ERABLES Final Result DERMATOPATHOLOGY LABORATORY [facility] - Department of Dermatology [address], [address] [phone] documented in this encounter Visit Diagnoses Not on filedocumented in this encounter Care Teams On Site Nurse Relationship Specialty Start Date End Date Laith Kumar MD [address] [place] [address] [address] [place] [phone] PCP - General 01/25/11 documented as of this encounter
--- OUTSIDE RECORDS SUMMARY | 2024-11-02 14:56 | XMS_ITS | Continuity of Care Document ---
Author Organization [facility] Address [address] [place] [address] Phone Care Team Providers Care Instructor Bridge Name Role Phone Nia GREY, FACC, FSCAI, [...] Diagnoses Date Provider Providers Copied on Encounter [facility], [address] [place] [address], [id number] , tel: [phone] [facility] No Information 5 Ramadan Cedric. [address] [address], [place], [id number] , [place]. tel: [phone] Referring Provider: Laith Kumar, [address] [facility] [address], [place], [address]. tel:[phone] [facility], [address] [place] [address], [id number] , tel: [phone] [facility] No Information Ramadan Cedric. [facility] [place], [place], [id number] , [place]. tel: [phone] [facility] , [address] [place] [address], [id number] , tel: [phone] [facility] Encounter for screening for cardiovascular disordersEdemaFatigue Atherosclerotic cardiac diseaseNicotine dependence, unspecified, uncomplicatedHyperten sionHyperlipidemiaPal pitations Ramadan Cedric. [address] [place], [place], [id number] , [place]. tel: [phone] Family History Family Member Type Diagnosis Age At Onset No Information Payers Payer name Insurance type Covered alliance party ID Authoriza tion(s) [facility] ADVANTAGE PLAN 2 HMO [facility] [id number] Social History Type Description Quantity Date Captured Comments Sex Female Smoking Status No Information Chief Complaint And Reason For Visit No Information Reason For Referral Reason For Referral No Information Plan Of Treatment Date Type Action Status Appointment Jenna Gillette History Of Present Illness Encounter Date Complaint History Of Prese nt Illness No Information Functional Status Date Functional Assessmen t No Information Instructions Date Instruction Additional Infor mation No Information Assessments Type Assessment Date No Information Patient Care Teams Name Effective Dates (start - stop) Status Members No Information
--- OUTSIDE RECORDS SUMMARY | 2024-11-02 14:56 | XMS_ITS | Clinical Summary ---
Author Organization [facility] Address [address] [facility] [place] [address] Care Team Providers Care Director Prison Name Role Phone Laith Kumar MD Primary Care Provider [phone] Source Comments [facility],non-owned Affiliates and Associated Physician Practices is amultiple site organization consisting of ambulatory clinics and hospital sitesin [place], [place], [place] and [place]. This disclosure is being madepursuant to the Care Everywhere program and may not contain all information available regarding this patient. 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 Jyotsna Escalona. These tests need not be, and therefore are not, approved by the [place] Food and Drug Administration. The tests are used for clinical purposes. Billing Codes Specimen Charges Stain Charges 35285 1 5 5:29 PM CDT DERMATOPATHOLOGY LABORATORY Embedded Images 5:29 PM CDT DERMATOPATHOLOGY LABORATORY Pathology/Cytolo gy TISSUE SPECIMEN FROM SKIN / Unknown 09/24/2024 1:02 PM CDT 09/25/2024 10:06 AM CDT Debby Yates MD LAB - PATHOLOGY/CYTOLOGY ORD ERABLES Final Result DERMATOPATHOLOGY LABORATORY [facility] - Department of Dermatology [facility] Medicine [address] [place] [address], [address] [phone] from Last 3 Months Insurance [facility] MANAGED MEDICARE [address] [place], [place] [address] MANAGED MEDICARE ADV [place] [id number] Care Teams Director Prison Relationship Specialty Start Date End Date Laith Kumar MD [address] [place] [address] [address] [place] [address] PCP - General 01/25/11
--- OUTSIDE RECORDS SUMMARY | 2024-11-02 14:56 | XMS_ITS | Encounter Summary ---
Author Organization [facility] Address [address] [facility] [place] [address] Care Team Providers Care Satellite Instruction Facilitator Name Role Phone Laith Kumar MD Primary Care Provider [phone] Encounter Details Date Type Department Care Team (Late st Contact Info) Description 10/03/2022 Lab Requisition [facility] - DermPath Lab [address] [place] [id number] Stan Mckeon MD [address] [place] [address] Social History Tobacco Use Types Packs/Day Years Used Date Smoking Tobacco: Never Assessed Comments Unknown Sex and Gender Information Value Date Recorded Sex Assigned at Not on file Legal Sex Female 6:03 PM [employer]LECTIVE [employer]IST Gender Identity Not on file Sexual Orientation Not on file documented as of this encounter Plan of Treatment Not on file documented as of this encounter Procedures Procedure Name Priority Date/Time Associated Diagnosis Comments DERMATOPATHOLOGY Routine 10/02/2022 12:0 0 AM CDT documented in this encounter Results * DERMATOPATHOLOGY (10/02/2022 12:00 AM CDT) Case Report Dermatopathology Report Case: [id number] Authorizing Provider: Stan Mckeon MD Collected: 10/02/2022 12:00 AM Ordering Location: [facility] Derm[facility] Lab Received: 10/04/2022 06:40 AM Pathologist: [...] determined by the Dermatopathology Laboratory at [facility], directed by Dr. Jyotsna Escalona. These tests need not be, and therefore are not, approved by the [place] Food and Drug Administration. The tests are used for clinical purposes. Billing Codes Specimen Charges Stain Charges 86501 14273 1 1 3 12:30 PM CDT DERMATOPATHOLOGY LABORATORY Embedded Images 12:30 PM CDT DERMATOPATHOLOGY LABORATORY Pathology/Cytology TISSUE SPECIMEN FROM SKIN / Unknown 10/02/2022 10/04/2022 6:40 AM CDT Miscellaneous samples (specimen) TISSUE SPECIMEN FROM SKIN / Unknown 10/02/2022 10/04/2022 6:40 AM CDT Stan Mckeon MD LAB - PATHOLOGY/CYTOLOGY ORD ERABLES Final Result DERMATOPATHOLOGY LABORATORY [facility] - Department of Dermatology [facility] Medicine [address] [place] [address], [address] [phone] documented in this encounter Visit Diagnoses Not on filedocumented in this encounter Care Teams Satellite Instruction Facilitator Relationship Specialty Start Date End Date Laith Kumar MD [address] [place] [address] [address] [place] [address] PCP - General 01/25/11 documented as of this encounter
--- OUTSIDE RECORDS SUMMARY | 2024-11-02 14:57 | XMS_ITS | Encounter Summary ---
Author Organization [facility] [place] Address [address] [facility] [place] [address] Care Team Providers Care Directory Assistance Operator Name Role Phone Laith Kumar MD Primary Care Provider [phone] Encounter Details Date Type Department Care Team (Late st Contact Info) Description 03/09/2020 Lab Requisition [facility] DermPath Lab [address] [place] [id number] Stan Mckeon MD [address] [address] Social History Tobacco Use Types Packs/Day Years Used Date Smoking Tobacco: Never Assessed Comments Unknown Sex and Gender Information Value Date Recorded Sex Assigned at Not on file Legal Sex Female 6:03 PM [employer] Gender Identity Not on file Sexual Orientation Not on file documented as of this encounter Plan of Treatment Not on file documented as of this encounter Procedures Procedure Name Priority Date/Time Associated Diagnosis Comments DERMATOPATHOLOGY Routine 03/08/2020 12:0 0 AM [employer] documented in this encounter Results * DERMATOPATHOLOGY (03/08/2020 12:00 AM [employer]) Case Report Dermatopathology Report Case: [id number] Authorizing Provider: Stan Mckeon MD Collected: 03/08/2020 12:00 AM Ordering Location: [facility] DermPath Lab Received: 03/09/2020 11:49 AM Pathologist: Harmony Dempsey MD Specimen: Skin, left vertex scalp 0 1:41 PM [employer] DERMATOPATHOLOGY LABORATORY Final Diagnosis Specimen A. SKIN, left vertex scalp: GRANULOMATOUS DERMATITIS CONSISTENT WITH A RUPTURED CYST OR HAIR FOLLICLE (L72.0) PRESENT AT MARGIN (see microscopic description) 0 1:41 PM [employer] DERMATOPATHOLOGY LABORATORY at [address] [employer] Clinical History R/O pilar cyst 0 1:41 PM [facility] DERMATOPATHOLOGY LABORATORY Gross Description Specimen A: Received is one formalin filled container labeled with the patient's name and designated left vertex scalp. The specimen consists of a punch excision measuring 7x7x6 mm. Jar 0. 0 1:41 PM [facility] DERMATOPATHOLOGY LABORATORY Microscopic Description Specimen A. SKIN, left vertex scalp: Sections show a space extending from the epidermis into the dermis that resembles a dilated hair follicle or cyst. Surrounding this is an infiltrate with neutrophils, histiocytes, and multinucleated giant cells. These changes are present at the margin of the specimen. Additional deeper sections were obtained and reviewed. 0 1:41 PM [facility] DERMATOPATHOLOGY LABORATORY Disclaimer An external and internal positive and negative controls are appropriate for the histochemical, immunohistochemical and immunofluorescence stain(s) in this case (if any), except where stated explicitly. The performance characteristics of the stain(s) cited in this report were developed and its performance characteristic determined by the Dermatopathology Laboratory at [facility], directed by Dr. Jyotsna Escalona. These tests need not be, and therefore are not, approved by the [place] Food and Drug Administration. The tests are used for clinical purposes. Billing Codes Specimen Charges Stain Charges 69464 1 0 1:41 PM [facility] DERMATOPATHOLOGY LABORATORY Embedded Images 0 1:41 PM [facility] DERMATOPATHOLOGY LABORATORY Pathology/Cytolog y TISSUE SPECIMEN FROM SKIN / Unknown 03/08/2020 03/09/2020 11:49 AM [employer] Stan Mckeon MD LAB - PATHOLOGY/CYTOLOGY ORD ERABLES Final Result DERMATOPATHOLOGY LABORATORY [facility] - Department of Dermatology [facility] Specialized Medicine [address] [place] [address], [address] [phone] documented in this encounter Visit Diagnoses Not on filedocumented in this encounter Care Teams Directory Assistance Operator Relationship Specialty Start Date End Date Laith Kumar MD [address] [place] [address] [address] [place] [address] PCP - General 01/25/11 documented as of this encounter
--- OUTSIDE RECORDS SUMMARY | 2024-11-02 14:57 | XMS_ITS | Data Portability ---
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 Plan of Treatment Reminders Order Date Submit Date Provider Last Modified By Organization Details Last Modified Time Details Appointments None recorded. Lab lipid panel, serum 2024 025 [facility], [address], [place], [address], 5 06:02:42 CMP, serum or plasma 2024 025 [facility]mit [facility], [address], [place], [address], 5 06:02:44 CBC w/ auto diff 2024 025 Smit O[facility], [address], [place], [address], 5 06:02:45 TSH, serum or plasma 2024 025 Smit O[facility], [address], [place], [address], 5 06:02:47 T4, free, serum 2024 025 Smit Ovens [facility], [address], [place], [address], 5 06:02:46 vitamin D, 25-hydroxy, total, serum [address] [employer] Organization [facility], [facility] Vanessa Valdovinos, [address], [place], [address], 4 06:54:09 lipid panel, serum [address] [employer] Organization [facility], [facility] Vanessa Valdovinos, [address], [place], [address], 4 06:54:07 CMP, serum or plasma [address] [employer] Organization [facility], [facility] Vanessa Valdovinos, [address], [place], [address], 4 06:54:08 TSH, serum or plasma 2023 024 [facility], [facility] [address], [place], [address], 4 06:54:09 T4, free, serum 2023 024 TOÑ[facility], [facility] Vanessa Valdovinos, [address], [place], [address], 4 06:54:09 CBC w/ auto diff 2023 024 [facility], [facility] [address], [place], [address], 4 06:54:08 enteric bacteria, organism specific culture, stool 2023 024 [facility] (Lab), [address] [place], [address], 4 16:12:50 c diff toxin genes, qual, PCR, stool 2023 024 [email or web address] [facility] (Lab), [address] [place], [address], 4 07:07:26 O&P (ova & parasites), stool 2023 024 [facility] ([facility]), [address], [place], [address], 4 15:17:56 inflammator y bowel disease Ab panel, serum 2023 024 Smit Ovens [facility], [address], [address], [place], [address], 4 18:37:32 CBC w/ auto diff 2023 024 [facility]mit [facility]vens [facility], [address], [address], [place], [address], 4 18:37:35 CMP, serum or plasma 2023 024 Smit Ovens [facility], [address], [place], [address], 4 18:37:34 lipid panel, serum 2023 024 Smit Ovens [facility], [address], [address], [place], [address], 4 18:37:31 Referral None recorded. Procedures None recorded. Surgeries None recorded. Imaging None recorded. Medication Orders furosemide 20 mg tablet 2023 024 [email or web address] [facility], [address] [place], [address], 5 17:14:43 Patient TargetsNo targets recorded. Patient Instructions Encounter Date Encounter Id Patient Instructions Last Modified By Organization Details Last Modified Time 05/28/2023 [id number] dementia rating scale-2* [email or web address] Not available 05/28/2023 16:10:16 alcohol misuse* [email or web address] Not available 05/28/2023 16:10:16 depression screening* [email or web address] Not available 05/28/2023 16:10:16 Timed Up and Go test (TUG)* [email or web address] Not available 05/28/2023 16:10:16 multi-dimensiona l health assessment questionnaire* [email or web address] Not available 05/28/2023 16:10:16 Personalized Hea lt [...] months Dementia Risk: Low Depression Screening: Negative [email or web address] Not available 05/28/2023 16:07:48 Medicare [facility] s evaluation risk assessment stable. Follow-up diarrhea- [...] with voice recognition software. Occasional wrong-word or wgunf-h-begf substitutions may have occurred due to the inherent limitations of voice recognition software. Read the chart carefully and recognize, using context, where substitutions have occurred. mammogram Low-dose CT scan of the chest Keep Appt: Sat 10:20 AM Ksenia [email or web address] Not available 05/28/2023 16:09:52 06/21/2023 [id number] Hypertension -hyperlipidemia -Clostridium difficile colitis -obesity class one. All clinically stable. No need for any blood work at this time being continue on current Rx recheck back in six months. Portions of the record may have been created with voice recognition software. Occasional wrong-word or rholv-l-apgc substitutions may have occurred due to the inherent limitations of voice recognition software. Read the chart carefully and recognize, using context, where substitutions have occurred. Not available 06/21/2023 11:10:13 12/19/2023 [id number] Follow-up hypertension, hyperlipidemia, peripheral venous insufficiency and [...] with voice recognition software. Occasional wrong-word or ihimg-c-ijov substitutions may have occurred due to the inherent limitations of voice recognition software. Read the chart carefully and recognize, using context, where substitutions have occurred. [email or web address] Not available 12/19/2023 11:53:11 10/14/2024 [id number] Medicare [facility] s evaluation risk assessment stable. [...] lumbosacral spine Keep Appointment: [email or web address] 10:20 AM [facility] Portions of record are template driven. When necessary additional context will be provided. Additionally some portions have been created with voice recognition software. Occasional wrong-word or mllzf-o-knde substitutions may have occurred due to the inherent limitations of voice recognition software. Read the chart carefully and recognize, using context, where substitutions may have occurred. Created: Hayley Kumar M.D. 10.14.2024 04:55 PM [email or web address] Not available 10/14/2024 17:55:42 Reason for Referral None Reported. Results Created Date Observation Date Name Description Value Unit Range Abnormal Flag Note LastModifiedBy Organization Detail LastModifiedTime 05/31/19 24 06/02/2023 CLOST RIDIU M DIFFI CILE TOXIN /GDH W/REF L TO PCR clostridium difficile toxin/gdh w/refl to PCR SEE NOTE abnormal CLOST RIDIU M DIFFI CILE TOXIN /GDH W/REF L TO PCR Micro Numbe r: [id number] Test Statu s: Final Speci men Sourc e: Stool Speci men Quali ty: Adequ ate GDH Antig en: Detec rodriguez Toxin A and B: Detec rodriguez COMME NT: Toxig enic C. diffi cile detec rodriguez For addit ional infor rakel toure pletaya e refer to http: //[facility] goldie toure.Que stDia gnost ics.c om/fa q/FAQ 136 (This link is being provi ded for infor rakel nal/e ducat ional purpo ses only. ) Not Available [address] [address] [place], [address], 06/02/2023 17:56:00 05/31/19 24 06/03/2023 GASTR OINTE YASMEEN L PATHO GEN PANEL , REAL TIME PCR campylobacte r group NOT DETECT ED not detect ed normal Not Available [facility] [address] [address] [place], [address], 06/03/2023 15:17:55 05/31/19 24 06/03/2023 GASTR OINTE YASMEEN L PATHO GEN PANEL , REAL TIME PCR salmonella species NOT DETECT ED not detect ed normal Not Available [facility] [address] [address] [place], [address], 06/03/2023 15:17:55 05/31/19 24 06/03/2023 GASTR OINTE YASMEEN L PATHO GEN PANEL , REAL TIME PCR shigella species NOT DETECT ED not detect ed normal Not Available [facility] [address] [address] [place], [address], 06/03/2023 15:17:55 05/31/19 24 06/03/2023 GASTR OINTE YASMEEN L PATHO GEN PANEL , REAL TIME PCR vibrio group NOT DETECT ED not detect ed normal Not Available [facility] - [address] [place], [address], 06/03/2023 15:17:55 05/31/19 24 06/03/2023 GASTR OINTE YASMEEN L PATHO GEN PANEL , REAL TIME PCR yersinia enterocoliti ca NOT DETECT ED not detect ed normal Not Available [facility] - [address], [address], 06/03/2023 15:17:55 05/31/19 24 06/03/2023 GASTR OINTE YASMEEN L PATHO GEN PANEL , REAL TIME PCR shiga toxin 1 NOT DETECT ED not detect ed normal Not Available [facility] - [address] [address] [place], [address], 06/03/2023 15:17:55 05/31/19 24 06/03/2023 GASTR OINTE YAMSEEN L PATHO GEN PANEL , REAL TIME PCR shiga toxin 2 NOT DETECT ED not detect ed normal Not Available [facility] - [address], [address], 06/03/2023 15:17:55 05/31/19 24 06/03/2023 GASTR OINTE YASMEEN L PATHO GEN PANEL , REAL TIME PCR norovirus GI/gii NOT DETECT ED not detect ed normal Not Available [facility] - [address], [address], 06/03/2023 15:17:55 05/31/19 24 06/03/2023 GASTR OINTE [...] this assay have been deter mined by [facility]. The modif icati ons have not been clear ed or appro graham by the FDA. This assay has been valid ated pursu ant to the CLIA regul ation s and is used for clini lashell purpo ses. Not Available [employer] [facility] [address] [place], [address], 06/03/2023 15:17:55 05/31/19 24 06/03/2023 OVA AND KATHERINE ITES WITH GIARD IA ANTIG EN giardia Ag, EIA, stool SEE NOTE GIARD IA AG, EIA, STOOL Micro Numbe r: [id number] Test Statu s: Final Speci men Sourc e: Stool Speci men Quali ty: Adequ ate Giard ia Resul t 1: Not Detec rodriguez Refer ence Range : Not Detec rodriguez NOTE: Due to inter mitte nt andreia ing, one negat grupo sampl e does not neces saril y rule out the prese nce of a katherine itic infec tion. Not Available [employer] [facility] [address] [place], [address], 06/03/2023 15:17:55 05/31/19 24 06/03/2023 OVA AND KATHERINE ITES WITH GIARD IA ANTIG EN ova and parasites, conc and perm smear SEE NOTE OVA AND KATHERINE ITES, CONC AND PERM SMEAR Micro Numbe r: [id number] Test Statu s: Final Speci men Sourc e: Stool Speci men Quali ty: Adequ ate JOY NTRAT ION 1: No ova or katherine ites seen TRICH SHNATA 1: No ova or katherine ites seen [...] refer to https ://ed ucati on.qu bacilio Sporterp[employer]. com/f aq/FA Q203 (This link is being provi ded for infor rakel sandoval/ educa tom l purpo ses only. ) Not Available [address], [address], 06/03/2023 15:17:55 05/31/19 24 06/06/2023 LIPID PANEL , STAND JULI cholesterol, total 103 mg/dL <200 normal Not Available [address], [address], 06/06/2023 18:37:30 05/31/19 24 06/06/2023 LIPID PANEL , STAND JULI HDL cholesterol 33 mg/dL > or = 50 low Not Available [address], [address], 06/06/2023 18:37:30 05/31/19 24 06/06/2023 LIPID PANEL , STAND JULI triglyceride s 131 mg/dL <150 normal Not Available [address], [address], 06/06/2023 18:37:30 05/31/19 24 06/06/2023 LIPID PANEL [...] a valid ated novel metho d provi ding cooper r accur acy than the Fried jignesh equat ion in the estim ation of LDL-C . Jo toure SS et al. MAIK. 2013; 310(1 9): 2061- 2068 (http ://ed ucati on.[employer]. [employer]/f aq/FA Q164) Not Available [facility] [address] [address] [address], [place], [address], 06/06/2023 18:37:30 05/31/19 24 06/06/2023 LIPID PANEL , STAND JULI chol/HDLC ratio 3.1 (calc ) <5.0 normal Not Available [facility] [address] [address] [address], [place], [address], 06/06/2023 18:37:30 05/31/19 24 06/06/2023 LIPID PANEL , STAND JULI non HDL cholesterol 70 mg/dL _(lashell c) <130 normal For patie nts with diabe ghazal plus 1 major ASCVD risk facto r, treat ing to a non-H DL-C goal of <100 mg/dL (LDL- C of <70 mg/dL ) is consi aspen rey optio n. Not Available [facility] [address] [address] [address], [place], [address], 06/06/2023 18:37:30 05/31/19 24 06/06/2023 INFLA MMATO RY BOWEL DISEA SE DIFFE RENTI ATION PANEL anca screen ATYP P-ANCA POS negati ve abnormal ANCA Scree n inclu patrick evalu ation for p-ANC A, c-ANC A and atypi lashell p-ANC A. A posit grupo ANCA scree n refle xes to luis and jose rn(s) , e.g., cytop jony garcia rn (c-AN CA), perin uclea r jose [...] 's disea se. Not Available [facility] [address] [place], [address], 06/06/2023 18:37:32 05/31/19 24 06/06/2023 INFLA MMATO [...] e disea se. Not Available [facility] [address] [place], [address], 06/06/2023 18:37:32 05/31/19 24 06/06/2023 INFLA MMATO RY BOWEL DISEA SE DIFFE RENTI ATION PANEL proteinase-3 antibody <1.0 ai <1.0 Value Inter preta tion <1.0 AI: No Antib remigio Detec rodriguez >or=1 .0 AI: Antib remigio Detec rodriguez Autoa ntibo dies to prote inase -3 (AL-3 ) are accep rodriguez as suki cteri stic for granu lomat osis with polya ngiit is (GPA, Wegen er's) , and are detec table in 95% of the histo logic ally prove n cases . The cytop jony garcia rn, (c-AN CA), is based large ly on autoa ntibo dy to AL-3 which serve s as the prima ry antig en. These autoa ntibo dies are prese nt in activ e disea se. Not Available [facility] [address] [place], [address], 06/06/2023 18:37:32 05/31/19 24 06/06/2023 INFLA MMATO [...] cerev isiae . Not Available [facility] [address] [place], [address], 06/06/2023 18:37:32 05/31/19 24 06/06/2023 INFLA MMATO [...] to S cerev isiae . Not Available [facility] [address] [place], [address], 06/06/2023 18:37:32 05/31/19 24 06/06/2023 ATYPI LASHELL [...] rito lupus eryth emato valerio. Not Available [facility] [address] [place], [address], 06/06/2023 18:37:33 05/31/19 24 06/06/2023 COMPR EHENS GRUPO METAB OLIC PANEL glucose 90 mg/dL 65-99 normal Fasti ng refer ence inter robbin Not Available [facility] [address] [place], [address], 06/06/2023 18:37:33 05/31/19 24 06/06/2023 COMPR EHENS GRUPO METAB OLIC PANEL urea nitrogen (BUN) 6 mg/dL 7-25 low Not Available [address], [address], 06/06/2023 18:37:33 05/31/19 24 06/06/2023 COMPR EHENS GRUPO METAB OLIC PANEL creatinine 0.70 mg/dL 0.50-1 .05 normal Not Available [address], [address], 06/06/2023 18:37:33 05/31/19 24 06/06/2023 COMPR EHENS GRUPO METAB OLIC PANEL eGFR 94 mL/mi n/1.7 3m2 > or = 60 normal Not Available [address], [address], 06/06/2023 18:37:33 05/31/19 24 06/06/2023 COMPR EHENS GRUPO METAB OLIC PANEL BUN/creatini ne ratio 9 (calc ) 6-22 normal Not Available [address], [address], 06/06/2023 18:37:33 05/31/19 24 06/06/2023 COMPR EHENS GRUPO METAB OLIC PANEL sodium 138 mmol/ L 135-14 6 normal Not Available [address], [address], 06/06/2023 18:37:33 05/31/19 24 06/06/2023 COMPR EHENS GRUPO METAB OLIC PANEL potassium 4.0 mmol/ L 3.5-5. 3 normal Not Available [address], [address], 06/06/2023 18:37:33 05/31/19 24 06/06/2023 COMPR EHENS GRUPO METAB OLIC PANEL chloride 102 mmol/ L 98-110 normal Not Available [address], [address], 06/06/2023 18:37:33 05/31/19 24 06/06/2023 COMPR EHENS GRUPO METAB OLIC PANEL carbon dioxide 31 mmol/ L 20-32 normal Not Available [address], [address], 06/06/2023 18:37:33 05/31/19 24 06/06/2023 COMPR EHENS GRUPO METAB OLIC PANEL calcium 8.6 mg/dL 8.6-10 .4 normal Not Available [address], [address], 06/06/2023 18:37:33 05/31/19 24 06/06/2023 COMPR EHENS GRUPO METAB OLIC PANEL protein, total 6.6 g/dL 6.1-8. 1 normal Not Available [address], [address], 06/06/2023 18:37:33 05/31/19 24 06/06/2023 COMPR EHENS GRUPO METAB OLIC PANEL albumin 3.6 g/dL 3.6-5. 1 normal Not Available [address], [address], 06/06/2023 18:37:33 05/31/19 24 06/06/2023 COMPR EHENS GRUPO METAB OLIC PANEL globulin 3.0 g/dL_ (calc ) 1.9-3. 7 normal Not Available [address], [address], 06/06/2023 18:37:33 05/31/19 24 06/06/2023 COMPR EHENS GRUPO METAB OLIC PANEL albumin/glob ulin ratio 1.2 (calc ) 1.0-2. 5 normal Not Available [address], [address], 06/06/2023 18:37:33 05/31/19 24 06/06/2023 COMPR EHENS GRUPO METAB OLIC PANEL bilirubin, total 0.6 mg/dL 0.2-1. 2 normal Not Available [address], [address], 06/06/2023 18:37:33 05/31/19 24 06/06/2023 COMPR EHENS GRUPO METAB OLIC PANEL alkaline phosphatase 70 U/L 37-153 normal Not Available [address], [address], 06/06/2023 18:37:33 05/31/19 24 06/06/2023 COMPR EHENS GRUPO METAB OLIC PANEL AST 13 U/L 10-35 normal Not Available [address], [address], 06/06/2023 18:37:33 05/31/19 24 06/06/2023 COMPR EHENS GRUPO METAB OLIC PANEL ALT 12 U/L 6-29 normal Not Available [address], [address], 06/06/2023 18:37:33 05/31/19 24 06/06/2023 CBC (INCL UDES DIFF/ PLT) white blood cell count 13.7 thous and/u L 3.8-10 .8 high Not Available [address], [address], 06/06/2023 18:37:35 05/31/19 24 06/06/2023 CBC (INCL UDES DIFF/ PLT) red blood cell count 4.27 cristy on/uL 3.80-5 .10 normal Not Available [address], [address], 06/06/2023 18:37:35 05/31/19 24 06/06/2023 CBC (INCL UDES DIFF/ PLT) hemoglobin 12.9 g/dL 11.7-1 5.5 normal Not Available [address], [address], 06/06/2023 18:37:35 05/31/19 24 06/06/2023 CBC (INCL UDES DIFF/ PLT) hematocrit 38.6 % 35.0-4 5.0 normal Not Available [address], [address], 06/06/2023 18:37:35 05/31/19 24 06/06/2023 CBC (INCL UDES DIFF/ PLT) MCV 90.4 fL 80.0-1 00.0 normal Not Available [address], [address], 06/06/2023 18:37:35 05/31/19 24 06/06/2023 CBC (INCL UDES DIFF/ PLT) MCH 30.2 pg 27.0-3 3.0 normal Not Available [address], [address], 06/06/2023 18:37:35 05/31/19 24 06/06/2023 CBC (INCL UDES DIFF/ PLT) MCHC 33.4 g/dL 32.0-3 6.0 normal Not Available [address], [address], 06/06/2023 18:37:35 05/31/19 24 06/06/2023 CBC (INCL UDES DIFF/ PLT) RDW 13.0 % 11.0-1 5.0 normal Not Available [address], [address], 06/06/2023 18:37:35 05/31/19 24 06/06/2023 CBC (INCL UDES DIFF/ PLT) platelet count 325 thous and/u L 140-40 0 normal Not Available [address] [place], [address], 06/06/2023 18:37:35 05/31/19 24 06/06/2023 CBC (INCL UDES DIFF/ PLT) MPV 11.7 fL 7.5-12 .5 normal Not Available [address], [address], 06/06/2023 18:37:35 05/31/19 24 06/06/2023 CBC (INCL UDES DIFF/ PLT) absolute neutrophils 9823 cells /uL 1500-7 800 high Not Available [facility] [address], [address], 06/06/2023 18:37:35 05/31/19 24 06/06/2023 CBC (INCL UDES DIFF/ PLT) absolute lymphocytes 2398 cells /uL 850-39 00 normal Not Available [address], [address], 06/06/2023 18:37:35 05/31/19 24 06/06/2023 CBC (INCL UDES DIFF/ PLT) absolute monocytes 1178 cells /uL 200-95 0 high Not Available [address], [address], 06/06/2023 18:37:35 05/31/19 24 06/06/2023 CBC (INCL UDES DIFF/ PLT) absolute eosinophils 233 cells /uL 15-500 normal Not Available [address], [address], 06/06/2023 18:37:35 05/31/19 24 06/06/2023 CBC (INCL UDES DIFF/ PLT) absolute basophils 69 cells /uL 0-200 normal Not Available [address], [address], 06/06/2023 18:37:35 05/31/19 24 06/06/2023 CBC (INCL UDES DIFF/ PLT) neutrophils 71.7 % normal Not Available [facility] [address], [address], 06/06/2023 18:37:35 05/31/19 24 06/06/2023 CBC (INCL UDES DIFF/ PLT) lymphocytes 17.5 % normal Not Available [facility] [address], [address], 06/06/2023 18:37:35 05/31/19 24 06/06/2023 CBC (INCL UDES DIFF/ PLT) monocytes 8.6 % normal Not Available [facility] [address], [address], 06/06/2023 18:37:35 05/31/19 24 06/06/2023 CBC (INCL UDES DIFF/ PLT) eosinophils 1.7 % normal Not Available [facility] [address], [address], 06/06/2023 18:37:35 05/31/19 24 06/06/2023 CBC (INCL UDES DIFF/ PLT) basophils 0.5 % normal Not Available [facility] [address], [address], 06/06/2023 18:37:35 12/24/19 24 12/25/2023 LIPID PANEL , STAND JULI cholesterol, total 141 mg/dL <200 normal Not Available [address], [address], 12/25/2023 06:54:07 12/24/19 24 12/25/2023 LIPID PANEL , STAND JULI HDL cholesterol 35 mg/dL > or = 50 low Not Available [address], [address], 12/25/2023 06:54:07 12/24/19 24 12/25/2023 LIPID PANEL , STAND JULI triglyceride s 160 mg/dL <150 high Not Available [facility] [address] [place], [address], 12/25/2023 06:54:07 12/24/19 24 12/25/2023 LIPID PANEL [...] lated using the Jo n-Hop kins calcu latio n, which is a valid ated novel chriso d myrandai juan gamboa r accur acy than the Fried jignesh equat ion in the estim ation of LDL-C . Jo toure SS et al. MAIK. 2013; 310(1 9): 2061- 2068 (http ://ed ucati on.Qu leoClarity Software [employer]. com/f aq/FA Q164) Not Available [address] [address] [address], [place], [address], 12/25/2023 06:54:07 12/24/19 24 12/25/2023 LIPID PANEL , STAND JULI chol/HDLC ratio 4.0 (calc ) <5.0 normal Not Available [facility] [address] [place], [address], 12/25/2023 06:54:07 12/24/19 24 12/25/2023 LIPID PANEL , STAND JULI non HDL cholesterol 106 mg/dL _(lashell c) <130 normal For patie nts with diabe ghazal plus 1 major ASCVD risk facto r, treat ing to a non-H DL-C goal of <100 mg/dL (LDL- C of <70 mg/dL ) is zahra dillon c optio n. Not Available [facility] [address] [place], [address], 12/25/2023 06:54:07 12/24/19 24 12/25/2023 COMPR EHENS GRUPO METAB OLIC PANEL , PLASM A glucose 100 mg/dL 65-99 high Fasti ng refer ence inter robbin For someo ne witho ut known diabe ghazal, a gluco se value betwe en 100 and 125 mg/dL is consi stent with predi abete s and shoul d be confi rmed with a follo w-up test. Not Available [address], [address], 12/25/2023 06:54:08 12/24/19 24 12/25/2023 COMPR EHENS GRUPO METAB OLIC PANEL , PLASM A urea nitrogen (BUN) 12 mg/dL 7-25 normal Not Available [address], [address], 12/25/2023 06:54:08 12/24/19 24 12/25/2023 COMPR EHENS GRUPO METAB OLIC PANEL , PLASM A creatinine 0.69 mg/dL 0.50-1 .05 normal Not Available [address], [address], 12/25/2023 06:54:08 12/24/19 24 12/25/2023 COMPR EHENS GRUPO METAB OLIC PANEL , PLASM A eGFR 94 mL/mi n/1.7 3m2 > or = 60 normal Not Available [address], [address], 12/25/2023 06:54:08 12/24/19 24 12/25/2023 COMPR EHENS GRUPO METAB OLIC PANEL , PLASM A BUN/creatini ne ratio SEE NOTE: (calc ) 6-22 Not Repor rodriguez: BUN and Creat inine are withi n refer ence range . Not Available [address], [address], 12/25/2023 06:54:08 12/24/19 24 12/25/2023 COMPR EHENS GRUPO METAB OLIC PANEL , PLASM A sodium 139 mmol/ L 135-14 6 normal Not Available [address], [address], 12/25/2023 06:54:08 12/24/19 24 12/25/2023 COMPR EHENS GRUPO METAB OLIC PANEL , PLASM A potassium 3.5 mmol/ L 3.4-4. 8 normal Not Available [address], [address], 12/25/2023 06:54:08 12/24/19 24 12/25/2023 COMPR EHENS GRUPO METAB OLIC PANEL , PLASM A chloride 104 mmol/ L 98-110 normal Not Available [address], [address], 12/25/2023 06:54:08 12/24/19 24 12/25/2023 COMPR EHENS GRUPO METAB OLIC PANEL , PLASM A carbon dioxide 28 mmol/ L 20-32 normal Not Available [address], [address], 12/25/2023 06:54:08 12/24/19 24 12/25/2023 COMPR EHENS GRUPO METAB OLIC PANEL , PLASM A calcium 9.1 mg/dL 8.6-10 .4 normal Not Available [address], [address], 12/25/2023 06:54:08 12/24/19 24 12/25/2023 COMPR EHENS GRUPO METAB OLIC PANEL , PLASM A protein, total 7.8 g/dL 6.4-8. 4 normal Not Available [address], [address], 12/25/2023 06:54:08 12/24/19 24 12/25/2023 COMPR EHENS GRUPO METAB OLIC PANEL , PLASM A albumin 3.9 g/dL 3.6-5. 1 normal Not Available [address], [address], 12/25/2023 06:54:08 12/24/19 24 12/25/2023 COMPR EHENS GRUPO METAB OLIC PANEL , PLASM A globulin 3.9 g/dL_ (calc ) 2.2-4. 0 normal Not Available [address], [address], 12/25/2023 06:54:08 12/24/19 24 12/25/2023 COMPR EHENS GRUPO METAB OLIC PANEL , PLASM A albumin/glob ulin ratio 1.0 (calc ) 0.9-2. 3 normal Not Available [address], [address], 12/25/2023 06:54:08 12/24/19 24 12/25/2023 COMPR EHENS GRUPO METAB OLIC PANEL , PLASM A bilirubin, total 0.9 mg/dL 0.2-1. 2 normal Not Available [address], [address], 12/25/2023 06:54:08 12/24/19 24 12/25/2023 COMPR EHENS GRUPO METAB OLIC PANEL , PLASM A alkaline phosphatase 85 U/L 37-153 normal Not Available [address], [address], 12/25/2023 06:54:08 12/24/19 24 12/25/2023 COMPR EHENS GRUPO METAB OLIC PANEL , PLASM A AST 15 U/L 10-35 normal Not Available [address], [address], 12/25/2023 06:54:08 12/24/19 24 12/25/2023 COMPR EHENS GRUPO METAB OLIC PANEL , PLASM A ALT 16 U/L 6-29 normal Not Available [address], [address], 12/25/2023 06:54:08 12/24/19 12/25/2023 CBC (INCL UDES DIFF/ PLT) white blood cell count 11.2 thous and/u L 3.8-10 .8 high Not Available [address], [address], 12/25/2023 06:54:08 12/24/19 24 12/25/2023 CBC (INCL UDES DIFF/ PLT) red blood cell count 4.23 cristy on/uL 3.80-5 .10 normal Not Available [address], [address], 12/25/2023 06:54:08 12/24/19 24 12/25/2023 CBC (INCL UDES DIFF/ PLT) hemoglobin 12.9 g/dL 11.7-1 5.5 normal Not Available [address], [address], 12/25/2023 06:54:08 12/24/19 24 12/25/2023 CBC (INCL UDES DIFF/ PLT) hematocrit 40.2 % 35.0-4 5.0 normal Not Available [address], [address], 12/25/2023 06:54:08 12/24/19 24 12/25/2023 CBC (INCL UDES DIFF/ PLT) MCV 95.0 fL 80.0-1 00.0 normal Not Available [address], [address], 12/25/2023 06:54:08 12/24/19 24 12/25/2023 CBC (INCL UDES DIFF/ PLT) MCH 30.5 pg 27.0-3 3.0 normal Not Available [address], [address], 12/25/2023 06:54:08 12/24/19 24 12/25/2023 CBC (INCL UDES DIFF/ PLT) MCHC 32.1 g/dL 32.0-3 6.0 normal Not Available [address], [address], 12/25/2023 06:54:08 12/24/19 24 12/25/2023 CBC (INCL UDES DIFF/ PLT) RDW 13.6 % 11.0-1 5.0 normal Not Available [address], [address], 12/25/2023 06:54:08 12/24/19 24 12/25/2023 CBC (INCL UDES DIFF/ PLT) platelet count 274 thous and/u L 140-40 0 normal Not Available [address], [address], 12/25/2023 06:54:08 12/24/19 24 12/25/2023 CBC (INCL UDES DIFF/ PLT) MPV 11.4 fL 7.5-12 .5 normal Not Available [address], [address], 12/25/2023 06:54:08 12/24/19 24 12/25/2023 CBC (INCL UDES DIFF/ PLT) absolute neutrophils 7213 cells /uL 1500-7 800 normal Not Available [address], [address], 12/25/2023 06:54:08 12/24/19 24 12/25/2023 CBC (INCL UDES DIFF/ PLT) absolute lymphocytes 2800 cells /uL 850-39 00 normal Not Available [address], [address], 12/25/2023 06:54:08 12/24/19 24 12/25/2023 CBC (INCL UDES DIFF/ PLT) absolute monocytes 874 cells /uL 200-95 0 normal Not Available [address], [address], 12/25/2023 06:54:08 12/24/19 24 12/25/2023 CBC (INCL UDES DIFF/ PLT) absolute eosinophils 258 cells /uL 15-500 normal Not Available [address], [address], 12/25/2023 06:54:08 12/24/19 24 12/25/2023 CBC (INCL UDES DIFF/ PLT) absolute basophils 56 cells /uL 0-200 normal Not Available [facility] [address], [address], 12/25/2023 06:54:08 12/24/19 24 12/25/2023 CBC (INCL UDES DIFF/ PLT) neutrophils 64.4 % normal Not Available [facility] [address], [address], 12/25/2023 06:54:08 12/24/19 24 12/25/2023 CBC (INCL UDES DIFF/ PLT) lymphocytes 25.0 % normal Not Available [facility] [address], [address], 12/25/2023 06:54:08 12/24/19 24 12/25/2023 CBC (INCL UDES DIFF/ PLT) monocytes 7.8 % normal Not Available [facility] [address], [address], 12/25/2023 06:54:08 12/24/19 24 12/25/2023 CBC (INCL UDES DIFF/ PLT) eosinophils 2.3 % normal Not Available [facility] [address], [address], 12/25/2023 06:54:08 12/24/19 24 12/25/2023 CBC (INCL UDES DIFF/ PLT) basophils 0.5 % normal Not Available [facility] [address], [address], 12/25/2023 06:54:08 12/24/19 24 12/25/2023 T4, FREE T4, free 0.9 NG/dL 0.8-1. 8 normal Not Available [address], [address], 12/25/2023 06:54:09 12/24/19 24 12/25/2023 TSH TSH 1.92 mIU/L 0.40-4 .50 normal Not Available [address], [address], 12/25/2023 06:54:09 12/24/19 24 12/25/2023 VITAM IN [...] /MS is recom carlton d: order code 17224 (beth ents >2yrs ). See Note 1 Note 1 For addit ional infor ion cortes refer to http: //malka Sims gnost ics.c om/fa q/FAQ 199 (This link is being provi ded for infor rakel sandoval/ martha curiel purpo ses only. ) Not Available [address], [address], 12/25/2023 06:54:09 06/30/19 25 07/01/2024 LIPID PANEL , STAND JULI cholesterol, total 151 mg/dL <200 normal Not Available [address], [address], 07/01/2024 06:02:42 06/30/1907/01/2024 LIPID PANEL , STAND JULI HDL cholesterol 43 mg/dL > or = 50 low Not Available [address], [address], 07/01/2024 06:02:42 06/30/19 25 07/01/2024 LIPID PANEL , STAND JULI triglyceride s 159 mg/dL <150 high Not Available [address], [address], 07/01/2024 06:02:42 06/30/1907/01/2024 LIPID PANEL , STAND [...] 9): 2061- 2068 (http ://ed ucati on.Jakob Oshea Recochemyuliana [employer] Insightss. com/f aq/FA Q164) Not Available [address], [address], 07/01/2024 06:02:42 06/30/1907/01/2024 LIPID PANEL , STAND JULI chol/HDLC ratio 3.5 (calc ) <5.0 normal Not Available [address], [address], 07/01/2024 06:02:42 06/30/19 25 07/01/2024 LIPID PANEL , STAND JULI non HDL cholesterol 108 mg/dL _(lashell c) <130 normal For patie nts with diabe ghazal plus 1 major ASCVD risk facto r, treat ing to a non-H DL-C goal of <100 mg/dL (LDL- C of <70 mg/dL ) is consi dered a thera peuti c optio n. Not Available [address] [place], [address], 07/01/2024 06:02:42 06/30/1907/01/2024 COMPR EHENS GRUPO METAB OLIC PANEL , PLASM A glucose 109 mg/dL 65-99 high Fasti ng refer ence inter robbin For someo ne witho ut known diabe ghazal, a gluco se value betwe en 100 and 125 mg/dL is consi stent with predi abete s and shoul d be confi rmed with a follo w-up test. Not Available [address], [address], 07/01/2024 06:02:43 06/30/1907/01/2024 COMPR EHENS GRUPO METAB OLIC PANEL , PLASM A urea nitrogen (BUN) 12 mg/dL 7-25 normal Not Available [address], [address], 07/01/2024 06:02:43 06/30/1907/01/2024 COMPR EHENS GRUPO METAB OLIC PANEL , PLASM A creatinine 0.65 mg/dL 0.50-1 .05 normal Not Available [address] [place], [address], 07/01/2024 06:02:43 06/30/1907/01/2024 COMPR EHENS GRUPO METAB OLIC PANEL , PLASM A eGFR 95 mL/mi n/1.7 3m2 > or = 60 normal Not Available [address], [address], 07/01/2024 06:02:43 06/30/1907/01/2024 COMPR EHENS GRUPO METAB OLIC PANEL , PLASM A BUN/creatini ne ratio SEE NOTE: (calc ) 6-22 Not Repor rodriguez: BUN and Creat inine are withi n refer ence range . Not Available [address], [address], 07/01/2024 06:02:43 06/30/19 25 07/01/2024 COMPR EHENS GRUPO METAB OLIC PANEL , PLASM A sodium 140 mmol/ L 135-14 6 normal Not Available [address], [address], 07/01/2024 06:02:43 06/30/1907/01/2024 COMPR EHENS GRUPO METAB OLIC PANEL , PLASM A potassium 3.5 mmol/ L 3.4-4. 8 normal Not Available [address], [address], 07/01/2024 06:02:43 06/30/19 25 07/01/2024 COMPR EHENS GRUPO METAB OLIC PANEL , PLASM A chloride 102 mmol/ L 98-110 normal Not Available [address], [address], 07/01/2024 06:02:43 06/30/19 25 07/01/2024 COMPR EHENS GRUPO METAB OLIC PANEL , PLASM A carbon dioxide 29 mmol/ L 20-32 normal Not Available [address], [address], 07/01/2024 06:02:43 06/30/1907/01/2024 COMPR EHENS GRUPO METAB OLIC PANEL , PLASM A calcium 9.0 mg/dL 8.6-10 .4 normal Not Available [address], [address], 07/01/2024 06:02:43 06/30/19 25 07/01/2024 COMPR EHENS GRUPO METAB OLIC PANEL , PLASM A protein, total 7.7 g/dL 6.4-8. 4 normal Not Available [address], [address], 07/01/2024 06:02:43 06/30/1907/01/2024 COMPR EHENS GRUPO METAB OLIC PANEL , PLASM A albumin 4.0 g/dL 3.6-5. 1 normal Not Available [address], [address], 07/01/2024 06:02:43 06/30/19 25 07/01/2024 COMPR EHENS GRUPO METAB OLIC PANEL , PLASM A globulin 3.7 g/dL_ (calc ) 2.2-4. 0 normal Not Available [address], [address], 07/01/2024 06:02:43 06/30/1907/01/2024 COMPR EHENS GRUPO METAB OLIC PANEL , PLASM A albumin/glob ulin ratio 1.1 (calc ) 0.9-2. 3 normal Not Available [address], [address], 07/01/2024 06:02:43 06/30/19 25 07/01/2024 COMPR EHENS GRUPO METAB OLIC PANEL , PLASM A bilirubin, total 0.9 mg/dL 0.2-1. 2 normal Not Available [address], [address], 07/01/2024 06:02:43 06/30/1907/01/2024 COMPR EHENS GRUPO METAB OLIC PANEL , PLASM A alkaline phosphatase 67 U/L 37-153 normal Not Available [address], [address], 07/01/2024 06:02:43 06/30/19 25 07/01/2024 COMPR EHENS GURPO METAB OLIC PANEL , PLASM A AST 13 U/L 10-35 normal Not Available [address], [address], 07/01/2024 06:02:43 06/30/1907/01/2024 COMPR EHENS GRUPO METAB OLIC PANEL , PLASM A ALT 13 U/L 6-29 normal Not Available [address], [address], 07/01/2024 06:02:43 06/30/1907/01/2024 CBC (INCL UDES DIFF/ PLT) white blood cell count 7.9 thous and/u L 3.8-10 .8 normal Not Available [address], [address], 07/01/2024 06:02:45 06/30/1907/01/2024 CBC (INCL UDES DIFF/ PLT) red blood cell count 3.96 cristy on/uL 3.80-5 .10 normal Not Available [address], [address], 07/01/2024 06:02:45 06/30/1907/01/2024 CBC (INCL UDES DIFF/ PLT) hemoglobin 12.3 g/dL 11.7-1 5.5 normal Not Available [address], [address], 07/01/2024 06:02:45 06/30/1907/01/2024 CBC (INCL UDES DIFF/ PLT) hematocrit 37.4 % 35.0-4 5.0 normal Not Available [address], [address], 07/01/2024 06:02:45 06/30/1907/01/2024 CBC (INCL UDES DIFF/ PLT) MCV 94.4 fL 80.0-1 00.0 normal Not Available [address], [address], 07/01/2024 06:02:45 06/30/1907/01/2024 CBC (INCL UDES DIFF/ PLT) MCH 31.1 pg 27.0-3 3.0 normal Not Available [address], [address], 07/01/2024 06:02:45 06/30/1907/01/2024 CBC (INCL UDES DIFF/ PLT) MCHC 32.9 g/dL 32.0-3 6.0 normal For adult s, a sligh t decre ase in the calcu lated MCHC value (in the range of 30 to 32 g/dL) is most likel y not clini josé signi heide t; siena er, it shoul d be inter prete d with cauti on in corre lat n with other red cell vicente eters and the patie nt's clini lashell condi tion. Not Available [address], [address], 07/01/2024 06:02:45 06/30/1907/01/2024 CBC (INCL UDES DIFF/ PLT) RDW 12.3 % 11.0-1 5.0 normal Not Available [address], [address], 07/01/2024 06:02:45 06/30/1907/01/2024 CBC (INCL UDES DIFF/ PLT) platelet count 278 thous and/u L 140-40 0 normal Not Available [address], [address], 07/01/2024 06:02:45 06/30/19 25 07/01/2024 CBC (INCL UDES DIFF/ PLT) MPV 11.4 fL 7.5-12 .5 normal Not Available [address], [address], 07/01/2024 06:02:45 06/30/19 07/01/2024 CBC (INCL UDES DIFF/ PLT) absolute neutrophils 4851 cells /uL 1500-7 800 normal Not Available [address], [address], 07/01/2024 06:02:45 06/30/1907/01/2024 CBC (INCL UDES DIFF/ PLT) absolute lymphocytes 2173 cells /uL 850-39 00 normal Not Available [address], [address], 07/01/2024 06:02:45 06/30/1907/01/2024 CBC (INCL UDES DIFF/ PLT) absolute monocytes 600 cells /uL 200-95 0 normal Not Available [address], [address], 07/01/2024 06:02:45 06/30/1907/01/2024 CBC (INCL UDES DIFF/ PLT) absolute eosinophils 213 cells /uL 15-500 normal Not Available [address], [address], 07/01/2024 06:02:45 06/30/19 25 07/01/2024 CBC (INCL UDES DIFF/ PLT) absolute basophils 63 cells /uL 0-200 normal Not Available [address], [address], 07/01/2024 06:02:45 06/30/1907/01/2024 CBC (INCL UDES DIFF/ PLT) neutrophils 61.4 % normal Not Available [address], [address], 07/01/2024 06:02:45 06/30/1907/01/2024 CBC (INCL UDES DIFF/ PLT) lymphocytes 27.5 % normal Not Available [address], [address], 07/01/2024 06:02:45 06/30/19 25 07/01/2024 CBC (INCL UDES DIFF/ PLT) monocytes 7.6 % normal Not Available [address], [address], 07/01/2024 06:02:45 06/30/19 25 07/01/2024 CBC (INCL UDES DIFF/ PLT) eosinophils 2.7 % normal Not Available [address], [address], 07/01/2024 06:02:45 06/30/19 25 07/01/2024 CBC (INCL UDES DIFF/ PLT) basophils 0.8 % normal Not Available [address], [address], 07/01/2024 06:02:45 06/30/1907/01/2024 T4, FREE T4, free 1.0 NG/dL 0.8-1. 8 normal Not Available [address], [address], 07/01/2024 06:02:46 06/30/1907/01/2024 TSH TSH 2.53 mIU/L 0.40-4 .50 normal Not Available [address], [address], 07/01/2024 06:02:47 05/26/19 24 05/26/2023 CT, abdom en + pelvi s, w/ contr ast No observ ation record ed. [email or web address], [place], [address], 05/27/2023 06:48:37 06/21/19 24 LDCT, chest , for lung cance r carleen abramsg [facility] [address] [facility] n [facility], [place] [id number] Patien t Name: CORINA JENNA ion #: [id number] Sex: F : 1955 8 Dictat ed By: Ofelia lizarraga Attend ing Physic abundio: DELTA KUMAR CE Orderi ng Physic abundio: DELTA KUMAR CE Exam Date: 2023 09:02 AM Exam Name: CT LOW DOSE CANCER SCREEN ING Admitt ing Diagno sis(es ): CLINIC AL INFORM ATION: Lung cancer screen ing. Curren t smoker . 35 pack year histor y of kietin g. TECHNI QUE: Low dose axial CT [...] at 2023 10:06: 28 AM Page 1 [email or web address] [facility] (Imaging) [address] [place], [address], 06/21/2023 12:21:27 06/21/19 24 MAMMO , scree byron, digit al, bilat eral [facility] [address] [place] [address] Patien t Name: JENNA GILLETTE Access ion #: [id number] Sex: F : 1955 8 Dictat ed By: Ofelia lizarraga Attend ing Physic abundio: DELTA KUMAR CE Orderi ng Physic abundio: DELTA KUMAR CE Exam Date: 2023 09:02 AM Exam Name: MG SARA Curiel JACQUIE BILAT SCREEN Admitt ing Diagno sis(es [...] at 2023 10:32: 47 AM Page [address] (Imaging) [address] [place], [address], 06/21/2023 12:21:47 10/03/19 24 10/02/2023 US, doppl er, venou s No observ ation record ed. [address] [facility] [address], [place], [address], 10/03/2023 20:17:03 10/20/19 25 10/18/2024 XR, lumbo sacra l spine , 2 or 3 view No observ ation record ed. [address] [facility] [address], [place], [address], 10/19/2024 07:03:17 Result Notes Documentation Provider Name and Address Organization Details Recorded Time Ldct, Chest, For Lung Cancer Screening : [facility] [address] [place] [address] Patient Name: JENNA GILLETTE Sex: F : [...] months. Page 1 Hayley Kumar MD [address], [address], [facility] 06/21/2023 12:21:27 Mammo, Screening, Digital, Bilateral : [place] [address] Patient Name: JENNA GILLETTE Sex: F : [...] 1: Negative. Page 1 Hayley Kumar MD [address] [place] [address], [place], [address], [facility] [employer] 06/21/2023 12:21:47 Problems Name Problem SNOMED Code Status Onset Date Resolution Date Notes Provider Name and Address Organization Details Recorded Time Benign essential hypertensi on 0655041 Active Not Available [facility] 3 06:15:24 Anxiety disorder 073955365 Active 2016 Not Available [facility] 3 06:15:24 Pure hyperchole sterolemia 502228933 Active Not Available [facility] 3 06:15:24 Low back strain 023517122 Active 2022 Not Available [facility] 3 06:15:24 Left lower quadrant pain 396561350 Active Not Available [facility] 3 06:15:24 Osteoarthr itis of left knee joint 4873172162415 09 Active 2021 Not Available [facility] 3 06:15:24 Osteoarthr itis of right knee joint 2589919967822 00 Active 2021 Not Available [facility] 3 06:15:24 Vitamin D deficiency 20552469 Active 2021 Not Available [facility] 3 06:15:24 Osteoarthr itis 367441265 Active 2016 Not Available [facility] 3 06:15:24 Pain of bilateral knee joints 2947548694716 04 Active 2021 Not Available [facility] 3 06:15:24 Herpes zoster 8542260 Active 2022 Not Available [facility] 3 06:15:24 Female stress incontinen ce 61489203 Active Not Available [facility] 3 06:15:24 Polyp of colon 06707713 Active Not Available [facility] 3 06:15:25 Obese class I 6207850901651 07 Active 2022 Hayley Kumar MD [address], [place], [address] , [place] [facility] 3 12:09:45 Acute sinusitis 22103706 Active 2022 Hayley Kumar MD [address], [place], [address] , [place] [facility] 3 14:59:06 Diarrhea 46664452 Active 2023 Hayley Kumar MD [address], [place], [address] , [place] [facility] 4 16:04:29 Clostridiu m difficile colitis 122035342 Active 2023 Hayley Kumar MD [address], [place], [address] , [place] [facility] 4 12:23:48 Peripheral venous insufficie ncy 93440557 Active 2023 Hayley Kumar MD [address], [place], [address] , [place] [facility] 4 11:47:37 COVID-19 187553845 Active 2023 Hayley Kumar MD [address], [place], [address] , [place] [facility] 4 16:24:07 Acute urinary tract infection 407260317 Active 2023 Ayesha gonzalez, [place] [facility] 4 17:18:59 Senile osteoporos is 74550250 Active 2024 Krista gonzalez, [place] [facility] 5 16:40:37 Low back pain 269064129 Active 2024 Krista gonzalez, [place] [facility] 17:57:24 Dyspnea 479509578 Active 2024 Krista Roger gonzalez, [facility] [employer] [facility] 16:46:47 Problem Notes None recorded. Procedures Surgical History Date Name Laterality Status Provider Name and Address Organization Details Recorded Time 05/28/19 24 Medicare Wellness CPT Code, subsequent completed Joanne Zhang RN [facility] [employer] [facility] 05/28/2023 15:53:57 12/14/19 23 Ortho - Cortisone Injection completed Amor Benjamin MD [address], [place], [address], [facility] [employer] [facility] 12/13/2022 12:28:10 08/15/19 Ortho - Cortisone Injection completed Amor Benjamin MD [address], [place], [address], [facility] [employer] [facility] 08/14/2022 15:45:01 12/29/19 21 Date of Last Colonoscopy completed Not Available [facility] 07/04/2022 06:12:02 10/21/19 20 Most Recent Bone Density completed Not Available [facility] 07/04/2022 06:12:02 Imaging Results None recorded. Procedure Notes None recorded. Medical Equipment None Reported. Allergies Allergen ID Allergen Name Allergen Category Reaction Reaction Severity Criticality Documentation Date Start Date Code Code System Note Provider Name and Address Organization Details Recorded Time 71659 Lipitor medicatio n myalgias (muscle pain) Not available Not available 07/04/2022 79915 5 RxNorm Not Available [facility] 3 06:19:51 11936 Substance with dihydropy ridine derivativ e structure and calcium channel marcella mechanism of action (substanc e) medicatio n edema mild low 06/25/2024 37181 9001 ALVARADO Kumar MD [address], [place], [address], [facility] [employer] [facility] 5 11:34:14 Medications Name Sig Start Date [...] completed Not Available Not Available Not Available Shima Perles 100 mg capsule Take 1 capsule [...] 40 mg by injection route. 05/28 completed [facility]: 0003- 0494- 20 Not Available Not Available [...] 40 mg by injection route. 05/28 completed [facility] 53000 -064- [phone] Not Available Not Available Not [...] Updated DateTime 4 175.26 cm 31.5 kg/m2 78303.1 7 g 88 /min 97 [degF] 97 % 97 % 110 mm[Hg] 60 mm[Hg] Ayesha [employer] 4 15:36:58 Date Recorded Body height Body mass index (BMI) Body weight Heart rate Body temperature Oxygen saturation Oxygen saturation in Arterial blood by Pulse oximetry Systolic blood pressure Diastolic blood pressure Provider Name and Address Organization Details Last Updated DateTime 4 175.26 cm 31.2 kg/m2 21645.9 9 g 76 /min 97.6 [degF] 98 % 98 % 112 mm[Hg] 62 mm[Hg] TERESA Larson [employer] 4 10:53:05 Date Recorded Body height Body mass index (BMI) Body weight Heart rate Body temperature Oxygen saturation Oxygen saturation in Arterial blood by Pulse oximetry Systolic blood pressure Diastolic blood pressure Provider Name and Address Organization Details Last Updated DateTime 5 175.26 cm 32.5 kg/m2 12808.3 2 g 84 /min 97 [degF] 99 % 99 % 140 mm[Hg] 90 mm[Hg] Ayesha [employer] 5 11:26:19 Date Recorded Body height Body mass index (BMI) Body weight Heart rate Body temperature Oxygen saturation Oxygen saturation in Arterial blood by Pulse oximetry Systolic blood pressure Diastolic blood pressure Provider Name and Address Organization Details Last Updated DateTime 5 175.26 cm 32.9 kg/m2 481542. 1 g 89 /min 97 [degF] 98 % 98 % 162 mm[Hg] 80 mm[Hg] Ayesha [employer] 5 17:14:20 Date Recorded Body height Body mass index (BMI) Body weight Heart rate Body temperature Oxygen saturation Oxygen saturation in Arterial blood by Pulse oximetry Systolic blood pressure Diastolic blood pressure Provider Name and Address Organization Details Last Updated DateTime 4 175.26 cm 32.2 kg/m2 06877.1 4 g 72 /min 97.8 [degF] 98 % 98 % 118 mm[Hg] 72 mm[Hg] TERESA Larson Alea [facility] [employer] 11:27:38 Social History Question Answer Notes LastModified by Organizat ion Details LastModified Time Tobacco Smoking Status Current Every Day Smoker Dennise See gonzalez [facility] [employer] 12/13/2022 10:47:24 Do You Have An Advance Directive? No [id number] Information not available 07/04/2022 Are You Blind Or Do You Have Difficulty Seeing? No Information not available 12/13/2022 Are You Deaf Or Do You Have Serious Difficulty Hearing? No Information not available 12/13/2022 What Type Of Diet Are You Following? REGULAR [id number] Information not available 07/04/2022 Have There Been Any Changes To Your Family Or Social Situation? No Information not available 12/13/2022 What Is The Fluoride Status Of Your Home? Unknown Information not available 12/13/2022 Are There Any Guns Present In Your Home? No Information not available 12/13/2022 Do You Use Insect Repellent Routinely? No Information not available 12/13/2022 Where [facility] You Live? [facility] Information not available 12/13/2022 Guns Present In The Home? No Information not available 05/28/2023 Are You Able To Care For Yourself? Yes [email or web address] Information not available 05/28/2023 Are You Blind Or Do Yo Have Difficulty Seeing? No [email or web address] Information not available 05/28/2023 Are You Deaf Or Do You Have Serious Difficulty Hearing? No [email or web address] Information not available 05/28/2023 Live Alone Of With Others? With Others [email or web address] Information not available 05/28/2023 What Was The Date Of Your Most Recent Tobacco Screening? 05/28/2023 [email or web address] Information not available 05/28/2023 What Is Your Current Pack Years? [email or web address] Information no t available 05/28/2023 Do You Have Any Pets? No Information not available 12/13/2022 What Is Your Relationship Status? [id number] Information not available 07/04/2022 Do You Have Smoke And Carbon Monoxide Detectors In Your Home? Yes Information not available 12/13/2022 Are You Passively Exposed To Smoke? Yes Information not available 12/13/2022 Are There Any Smokers In Your House? Yes Information not available 12/13/2022 How Much Tobacco Do You Smoke? 1 PPD [id number].[id number] Information not available 07/04/2022 Do You Use [...] is your level of alcohol consumption? None [id number] Information not available 07/04/2022 Do you or have you ever used smokeless tobacco? Never used smokeless tobacco [id number] Information not available 07/04/2022 Do you have [...] 12/13/2022 What is your exercise level? Occasional [id number] Information not available 07/04/2022 Mental Status Question Answer Note LastModified by Organization D etails LastModified Time Do you have difficulty concentrating, remembering or making decisions? No Information no t available 12/13/2022 Family History Relationship Description Onset Age of this Age Resolved Age Notes LastModified by Organization Details LastModified Time Father Family history of malignant neoplasm Not available 2022 10:47:21 Father Hypertensive disorder [id number] Not available 07/04/2022 06:12:05 Notes:Mother 72 from [...] HEARING PROBLEMS N MUMPS N SHINGLES N DEPRESSION (INCLUDING POST ) N BOWEL PROBLEMS N STROKE/TIA N ULCERS N BENIGN PROSTATIC HYPERPLASIA N MEASLES N HYPOTENSION N MYOCARDIAL INFARCTION N OBESITY N GERD/NAUSEA N ANEURYSM N URINARY/BLADDER/KIDNEY PROBLEMS N CORONARY ARTERY DISEASE (CAD) N ADDICTION CONCERNS N Impotence N ENDOMETRIOSIS N USE OF BLOOD THINNERS N SKIN [...] GLAUCOMA N FOOT PROBLEM N DIVERTICULITIS N SLEEP APNEA N CHICKENPOX N INFECTIOUS DISEASE N PROSTATE N HEART ARRHYTHMIA N INSOMNIA N HIGH CHOLESTEROL / HYPERLIPIDEMIA Y EYE PROBLEMS N HYPERTHYROIDISM N EDEMA N CHRONIC PAIN SYNDROME N HYPOTHYROIDISM N CAROTID BLOCKAGE N CONSTIPATION N BACK / NECK PROBLEMS N HAVE YOU BEEN HOSPITALIZED OR SEEN IN [facility] IN THE PAST YEAR ? N ATHEROSCLEROSIS N BREAST PROBLEMS N DIALYSIS N ECZEMA N OSTEOPOROSIS N ARTHRITIS Y NO SIGNIFICANT PAST MEDICAL HISTORY N APPENDICITIS N DIABETES, TYPE N BAD TEETH N ENT N HEARTBURN / REFLUX N AUTISM SPECTRUM DISORDER (ASD) N HEPATITIS / LIVER DISEASE N GOUT N SLEEP DISORDER N ALZHEIMER'S DISEASE N Brain Problems N DEMENTIA N HERPES N SEIZURES/EPILEPSY N HEADACHES/MIGRAINES N VASCULAR DISEASE N PACEMAKER N Blood Disorder N DIZZINESS N HEART DISEASE/HEART PROBLEMS N KIDNEY DISEASE N MULTIPLE SCLEROSIS N CANCER: SPECIFY N CARDIAC ARRHYTHMIA N ATRIAL FIBRILLATION N Gall Stones N PULMONARY EMBOLISM N AUTOIMMUNE DISEASE N Gynecological History Statement/Question Response Date of Last Mammogram 03/13/2021 Date of Last Colonoscopy 12/28/2020 Most Recent Bone Density 10/21/2019 Obstetrics History GPAL:G 0 P 0 0 0 0 Past Encounters Encounter ID Performer Location Encounter Start Date Encounter Closed Date Diagnosis/Indication Diagnosis SNOMED-CT Code Diagnosis ICD10 Code Diagnosis Note [id number] Hayley Kumar MD [facility] Internal [place] [facility] [place] [address] 10/11/2020 00:00:00 10/11/2020 11:32:33 [id number] [facility] Internal [place] [address] [place] [address] [place] [address] 04/11/2021 00:00:00 04/11/2021 11:40:[id number] [facility] [place] [place] [address] [place] [address] 05/04/2021 00:00:00 05/04/2021 11:34:[id number] [facility] [place] [address] [place] [address] 06/01/2021 00:00:00 06/01/2021 12:15:[id number] [facility] [address] [place] [address] 09/07/2021 00:00:00 09/07/2021 12:54:02 [id number] Hayley Kumar MD [facility] Internal [place] [address] [place] [address] 10/10/2021 00:00:00 10/10/2021 11:21:[id number] [facility] [address] [place] [address] 12/18/2021 00:00:00 12/18/2021 10:37:13 [id number] [facility] Internal [facility] [address] [facility] y , [place] [address] 04/10/2022 00:00:00 04/10/2022 11:58:[id number] [facility] [address] [place] [address] 04/12/2022 00:00:00 04/12/2022 12:04:[id number] [facility] [place] [address] [place] [address] 08/14/2022 15:00:12 08/14/2022 15:54:32 Pain of bilateral knee joints 8886341438 41770 M25.561 M25.562 Osteoarthr itis of left knee joint 3890418228 42551 M17.12 Osteoarthr itis of right knee joint 4542541502 19257 M17.11 [id number] [facility] Internal [facility] [address] [facility] , [place] [address] 10/30/2022 11:49:43 10/30/2022 12:18:23 Benign essential hypertension 0556427 I10 Pure hypercholesterolemia 084780318 E78.00 Polyp of colon 08071054 K63.5 Obese class I 3614228132 73069 E66.9 Vitamin D deficiency 347 37511 E55.9 [id number] [facility] [place] [address] [place] [address] 12/13/2022 10:46:17 12/13/2022 12:38:03 Osteoarthritis of left knee joint 2570810955 77445 M17.12 Osteoarthr itis of right knee joint 7875245595 71427 M17.11 Pain of bi lateral knee joints 0230136334 51223 M25.561 M25.228 [id number] [facility] Internal Med [place] [address] [place] [address] 05/28/2023 15:15:44 05/28/2023 16:30:11 Adult health examination 970672986 Z00.00 Screening for disorder 025090544 Z13.9 Benign ess ential hypertension 0710696 I10 Pure hypercholesterolemia 095134721 E78.00 Diarrhea 76572210 K52.89 R19.7 Obese class I 5997649864 69325 E66.9 [id number] [facility] Internal [place] [address] [place] [address] [facility] [place] [address] 06/21/2023 10:33:17 06/21/2023 11:14:41 Benign essential hypertension 8565168 I10 Pure hypercholesterolemia 923852387 E78.00 Clostridiu m difficile colitis 687484800 A04.72 Obese class I 2255986190 29175 E66.9 [id number] [facility] Internal [place] [address] [place] [address] [place] [address] 12/19/2023 11:20:12 12/19/2023 11:57:18 Benign essential hypertension 1287997 I10 Pure hypercholesterolemia 836997579 E78.00 Obese class I 9643160066 23725 E66.9 Peripheral venous insufficiency 34230602 I87.2 Vitamin D deficiency 347 44576 E55.[id number] [facility] Primary Care [facility] [address] [facility] [address] [place] [address] 06/25/2024 11:17:58 06/25/2024 12:07:10 Benign essential hypertension 0933571 I10 Pure hypercholesterolemia 780147695 E78.00 Peripheral venous insufficiency 68744224 I87.2 Obese class I 1754959534 99497 E66.[id number] [facility] Internal Med [place] [address] [place] [address] 10/14/2024 16:54:32 10/14/2024 18:02:54 General examination of patient 367822579 Z00.00 Benign ess ential hypertension 0390179 I10 Pure hypercholesterolemia 006380668 E78.00 Low back strain 42098372 1 S39.012A Obese class I 3276546384 93929 E66.9 Health Concerns Section Related Observation LastModified by Organization Detai ls LastModified Time None Recorded Concern Status LastModified by Organization Details LastModified Time None Recorded Advance Directives Directive N: Payers Insurance Date Sequence Insurance Name Policy Number Policy Higgins Covered Member ID Higgins Member ID Guarantor Name 10/16/2024 1 [facility] (MEDICARE REPLACEMENT/A DVANTAGE - PPO) [id number] Jenna Curtis Corina [id number] Jenna Gillette Notes Date Note Type Note [...] generalized fatigue Medication Reconciliation: from medication list. Nhqmxweflch34/22/2022 : Echocardiogram demonstrated some septal hypertrophy without [...] offered to be evaluated and instructed by leather leveler on weight loss diet. Active Medication ListAmlodipine 5 MG (TABLET - ORAL) One DailyHydrochlorothiazide 12.5 MG (TABLET - ORAL) Once DailyPravachol 40 MG (TABLET - ORAL) Two Hs For CholesterolMonopril 40 MG (TABLET - ORAL) One DailyCoreg 12.5 MG (TABLET - ORAL) One BidMultivitamin DailyPreservision Vitamins DailyVitamin B12 Daily Adverse Drug Reactions ReviewedLipitor Myalgia Vaccination and Ucrezqbndudt7268-84 Quuvfadpj0143-30 Tetanus Booster Surgical Iyshwrd0478-42 Tubal Ligation Preventative Testing Confirmed by Our Ppegrnz6811/08/2022 ZPNYYJCPYWYLT65/30/2023 ALBUMIN 3.9 G/DL N005/29/2022 MAMMOGRAM LDCT DEXA SCAN12/28/2020 COLONOSCOPY (5 YEARS) 12/28/2025 Social HistorySmokes one pack daily and has done so for 16 years. 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 72 from cancer of the colon and hypertension. Father 72 from suicide, hypertension and cancer of the pancreas.Has two brothers and two sisters. One sister of CA colon and others living and in good health. One brother of CA Lung and CAD Hayley Kumar MD [address] [facility] [address], [place], [address], [place] [facility] [place] [facility] [employer] 05/28/2023 16:10:21 4 text/htm l Patient Name: [...] Systemic Symptoms:none Medication Reconciliation: from medication list. Ddqqsymtvqq56/22/2022 : Echocardiogram demonstrated some septal hypertrophy without [...] offered to be evaluated and instructed by leather leveler on weight loss diet. Active Medication ListAmlodipine 5 MG (TABLET - ORAL) One DailyHydrochlorothiazide 12.5 MG (TABLET - ORAL) Once DailyRosuvastatin 20 MG TABLET One DailyMonopril 40 MG (TABLET - ORAL) One DailyCoreg 12.5 MG (TABLET - ORAL) One BidMultivitamin DailyPreservision Vitamins DailyVitamin B12 Daily Adverse Drug Reactions ReviewedLipitor Myalgia Vaccination and Ubfsdxrtyskg0370-74 Wgamdljli3478-20 Tetanus Booster Surgical Ysdnpoa7740-75 Tubal Ligation Preventative Testing Confirmed by Our Kczbwpi4905/31/2023 ALBUMIN 3.6 G/DL N011/08/2022 MNDRBCHCYPRIZ96/24/2023 MAMMOGRAM LDCT DEXA SCAN12/28/2020 COLONOSCOPY (5 YEARS) 12/28/2025 Social HistorySmokes one pack daily and has done so for 16 years. 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 72 from cancer of the colon and hypertension. Father 72 from suicide, hypertension and cancer of the pancreas.Has two brothers and two sisters. One sister of CA colon and others living and in good health. One brother of CA Lung and CAD Hayley Kumar MD [address] [facility] [address], [place], [address], [place] [employer] 06/21/2023 11:10:30 4 text/htm l Patient Name: [...] Systemic Symptoms:none Medication Reconciliation: from medication list. Jolsdyxorjn81/24/2023: Mammogram negative for malignancy repeat in one [...] offered to be evaluated and instructed by leather leveler on weight loss diet. Active Medication ListAmlodipine [...] 49 MG/DL (CALC) Hayley Kumar MD [address] [facility] [address], [place], [address], [facility] [employer] 12/19/2023 11:53:29 5 text/htm l Patient Name: Jenna CamposreaDate Of Service: June ( 06.25.2024 ): 1955 [...] Systemic Symptoms:none Medication Reconciliation: from medication list. [id number]: CT scan of the abdomen pelvis reveals [...] offered to be evaluated and instructed by leather leveler on weight loss diet. Active Medication ListHydrochlorothiazide 12.5 MG (TABLET - ORAL) Once DailyRosuvastatin 20 MG TABLET One DailyMonopril 40 MG (TABLET - ORAL) One DailyCoreg 12.5 MG (TABLET - ORAL) One BidMultivitamin DailyPreservision Vitamins DailyVitamin B12 DailyProbiotic One DailyFurosemide 20 MG TABLET One Daily Adverse Drug Reactions ReviewedLipitor MyalgiaCalcium Blockers Edema Vaccination and Immunization(X) 2009- INFLUENZA(X) 2008- TETANUS BOOSTER Surgical Zlmoqdn0140-24 Tubal Ligation Preventative Testing( ) 04/16/2024 Optometry( ) 12/24/2023 Albumin 3.9 G/DL N( ) 12/19/2023 Ophthalmology( ) 06/21/2023 Mammogram 06/21/2025(X) 06/21/2023 LDCT 06/21/2024(X) 05/29/2022 DEXA Scan 05/29/2024( ) 12/28/2020 Colonoscopy (5 Years) 12/28/2025 Social HistorySmokes one pack daily and has done so for 16 years. 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 72 from cancer of the [...] 0.50-1.05 MG/DLEGFR 94 > OR = 60 ML/MIN/1.01O5CWXLXIFRQ, TOTAL 0.9 0.2-1.2 MG/DLALKALINE PHOSPHATASE 85 37-153 U/LAST 15 10-35 U/LALT 16 6-29 U/LLIPID PANEL, STANDARD Date: 12/24/2023HOLESTEROL, TOTAL 141 <200 MG/DLHDL CHOLESTEROL 35 > OR = 50 MG/DLTRIGLYCERIDES 160 <150 MG/DLLDL-CHOLESTEROL 80 MG/DL (CALC)T4, FREE Date: 12/24/2023T4, FREE 0.9 0.8-1.8 NG/DLTSH Date: 12/24/2023TSH 1.92 0.40-4.50 MIU/LVITAMIN D,25-OH,TOTAL,IA Date: 12/24/2023VITAMIN D,25-OH,TOTAL,IA 36 30-100 NG/ML Hayley Kumar MD [address] [facility] [address], [place], [address], [facility] [employer] 06/25/2024 11:39:52 5 text/htm l Patient Name: Jenna Rodriguezate Of Service: Saturday ( 10.14.2024 ): 1955 [...] the current and new problems. Attendants(s) + Iisbemck-mk-ltyMxvaxpnwpwdsv l and Systemic Symptoms:none Medication Reconciliation: from medication list. Bisrpxmikal59-84-7472: CT scan of the abdomen pelvis reveals [...] MyalgiaCalcium Blockers Edema Vaccination and Immunization (X) 2010-01 INFLUENZA(X) 2008-11 TETANUS BOOSTERImmunizations and Vaccinations Discussed and Implemented [...] 16 years. 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 72 from cancer of the [...] 0.50-1.05 MG/DLEGFR 95 > OR = 60 ML/MIN/1.80R2VDKFEYXAU, TOTAL 0.9 0.2-1.2 MG/DLALKALINE PHOSPHATASE 67 37-153 U/LAST 13 10-35 U/LALT 13 6-29 U/LLIPID PANEL, STANDARD Date: 06/30/2024HOLESTEROL, TOTAL 151 <200 MG/DLHDL CHOLESTEROL 43 > OR = 50 MG/DLTRIGLYCERIDES 159 <150 MG/DLLDL-CHOLESTEROL 82 MG/DL (CALC)T4, FREE Date: 06/30/2024T4, FREE 1.0 0.8-1.8 NG/DLTSH Date: 02/25/2025TSH 2.53 0.40-4.50 MIU/L Hayley Kumar MD [address] [facility] [address], [place], [address], [facility] [employer] [facility] 10/14/2024 17:56:02 OBGyn Episode No OBEpisode recorded.
--- NOTE | 2024-11-26 18:45 | WPDPFTINT ---
PFT Procedure Performed PFT Procedure Performed Plethysmography (Lung Vol) Diffusing Cap (DLCO) Flow Vol Loop Spirometry w/o Bronchodil PFT Interpretation DOS: 11/02/2024 REQUESTING: Laith Kumar MD REASON FOR TESTING: shortness of breath PULMONARY FUNCTION TESTS Results are reliable and reproducible. Repeatability of spirometry FEV1 maneuver pre and post bronchodilator is Grade A. GLI 2012 reference equations were used. Spirometry: The FEV1 is 2.15 L, 85%. The pre-bronchodilator FVC is 2.73 L, 83%. The FEV1/FVC ratio is 79%, normal. Lung volumes: The total lung capacity is 4.45 L, 78%, consistent with mild restriction. FRC is 2.10 L, 64%, mildly decreased. The residual volume is 1.72 L, 72%, normal. The RV/TLC is 39%, normal. Airway resistance is elevated. Diffusion: DLCO is 15.9, 72%, normal. The DLCO/VA is 4.08, 99%, normal. Flow volume loop: The flow volume loop shows a normal pattern. IMPRESSION: This study shows normal spirometry without airflow obstruction, mild restriction evidence by mild decrease in the total lung capacity, normal diffusion. No bronchodilator was administered. No prior studies for comparison. Riddhi Nava MD
== END 2024-11-02 14:48 | disposition home or self-care (01) ==
LOC: ANHCARD 14:50 → ANHPFT 14:50
PROVIDERS: PCP Internal Medicine; Visit Provider Internal Medicine
DX: R06.02 Shortness of breath (principal)
CPT/HCPCS: 94375; 94726; 94729

== ENCOUNTER 2025-01-25 12:38 | Outpatient (CLI) | payer MEDICARE, SELFPAY ==
--- NOTE | ~2025-01-25 | CT_ITS ---
EXAMINATION: CT lung screening DATE: 01/25/2025 12:52 INDICATION: Nicotine dependence TECHNIQUE: Computed tomography (CT) of the chest was performed without intravenous contrast. The dose-length product was 258.39 mGy-cm. Automated exposure control and iterative reconstruction technique were employed. COMPARISON: None FINDINGS: Heart size normal. No significant pleural or pericardial effusion. No thoracic lymphadenopathy. There are small bilateral low-density masses of the adrenal glands, largest in the left adrenal gland measuring 1.7 cm, with density measurements compatible with benign adenomas. No endobronchial lesions. No focal airspace consolidation. No pneumothorax. There is mild levocurvature of the thoracic spine. No suspicious pulmonary nodules or masses. There is mild lower thoracic spondylosis. IMPRESSION: 1. Lung-RADS category 1: Negative. Continue annual screening with noncontrast low-dose chest CT in 12 months. Reviewed, dictated and finalized at location O. IMPRESSION: 1. Lung-RADS category 1: Negative. Continue annual screening with noncontrast l ow-dose chest CT in 12 months.
--- NOTE | ~2025-01-25 | DEXA_ITS ---
Bone Density Report Name: MELANIE ARRIAGA Age: 69 Sex: Female Ethnicity: White Date of : 1955 Indication: postmenopausal; screening for osteoporosis; height loss; cancer; Referring Provider: TIAN, HAYLEY Stacy Study: Bone densitometry was performed. Exam Date: January 25, 2025 Accession number: [id number] Bone Density: Region BMD T-score Z-score Classification AP Spine(L1, L2, L4) 1.398 3.3 5.4 Normal Femoral Neck (Left) 1.108 2.3 4.2 Normal Total Hip (Left) 1.294 2.9 4.4 Normal Femoral Neck (Right) 0.945 0.9 2.7 Normal Total Hip (Right) 1.190 2.0 3.6 Normal Total Hip Mean 1.242 2.5 4.0 Normal World Health Organization criteria for BMD impression classify patients as: Normal (T-score at or above -1.0), Osteopenia (T-score between -1.0 and -2.5), or Osteoporosis (T-score at or below -2.5). 10-year Fracture Risk: FRAX not reported because: All T-scores for Spine Total, Hip Total, Femoral Neck at or above -1.0 Previous Exams: -- Region Exam Age BMD T-score BMD Change BMD Change Date g/cm2 vs Baseline vs Previous -- AP Spine (L1-L2,L4) 01/25/2025 69 1.398 3.3 -4.7%* -4.7%* 01/25/2025 69 1.468 3.9 -- *Denotes significance at 95% confidence level, LSC for AP Spine = 0.022 g/cm2 Clinical Information Provided by Patient: Has used the following medications: Vitamin D Has the following medical conditions: Cancer Patient maximum height was 69 Menopause Age: 51 No regular weight bearing exercise Drinks caffeinated beverages Onset of menses at age 11 Number of children 2 Impression: The patient has normal bone mass. The BMD for the AP Spine (L1-L2,L4) decreased, changing by -4.7% since the last DXA exam. Discussion: LOW RISK OF FRACTURE; BONE DENSITY IS WELL ABOVE THE MINIMUM DESIRABLE LEVEL AND ABOVE AVERAGE FOR AGE AND SEX AT ALL SKELETAL SITES TESTED. This person's bone density is above expected limits for age and sex. This is rarely clinically significant, but should be pursued if there are significant musculoskeletal complaints. The patient should follow a healthful lifestyle (good nutrition with adequate calcium and vitamin D, and appropriate weight-bearing exercise). Follow-Up: Consider repeating this study in 3 to 4 years to reassess this patient's status, or sooner if there is some new clinical indication. Reported by: JESIKA on 01/25/2025 1:22:00 PM. Reviewed, dictated and finalized at location A.
== END 2025-01-25 12:39 | disposition home or self-care (01) ==
LOC: MICIMG 12:39
PROVIDERS: PCP Internal Medicine; Visit Provider Internal Medicine
DX: Z12.2 Encounter for screening for malignant neoplasm of respiratory organs (principal); Z87.891 Personal history of nicotine dependence; M81.0 Age-related osteoporosis without current pathological fracture
CPT/HCPCS: 71271; 77080

== ENCOUNTER 2025-03-12 12:53 | Outpatient (CLI) | payer MEDICARE, SELFPAY ==
--- NOTE | ~2025-03-12 | MR_ITS ---
EXAMINATION: MR knee LT wo con DATE: 03/12/2025 13:31 INDICATION: Medial meniscal tear. 2 weeks of lateral left knee pain. TECHNIQUE: Magnetic resonance imaging (MRI) of the left knee was performed without intravenous contrast. Sequences included coronal PD-weighted FSE, coronal PD-weighted FS FSE, sagittal T2-weighted FSE, sagittal PD-weighted FS FSE and axial PD weighted fat saturated FSE. COMPARISON: Radiographs dated 12/13/2022 FINDINGS: Medial compartment: Complex tear of the posterior body and posterior horn of the medial meniscus. There is subluxation of a small meniscal flap along the peripheral inferior aspect of the posterior body of the medial meniscus into the medial gutter along the medial rim of the medial tibial plateau. Partial-thickness chondral ulceration involving greater than 50% the cartilage thickness along much of the medial tibial plateau with small region of subarticular edema-like and cystlike changes along the medial rim. Additional additional less severe partial thickness cartilage loss but with deep chondral fissuring at the anterior weightbearing medial femoral condyle progressing to deep foci of full-thickness chondral ulceration mild underlying cortical irregularity along the more posterior central weightbearing medial femoral condyle. Lateral compartment: Lateral meniscus is normal. Small region of partial-thickness chondral ulceration and fissuring without degenerative subchondral changes at the central aspect lateral tibial plateau extending onto the shoulder the intercondylar eminence. Cartilage along the weightbearing lateral femoral condyle is rela tively preserved. Patellofemoral compartment: Extensive deep chondral ulceration-like signal change at the lateral patellar facet and apical ridge and medial facet. Less severe partial thickness chondral ulceration with chondral surface regularity and without degenerative subchondral changes at the lateral trochlea. Deep chondral ulceration with subtle underlying cortical irregularity at the inferior aspect of the medial trochlea. Ligaments and tendons: Anterior and posterior cruciate ligaments are normal. The medial collateral ligament and fibular collateral ligament complex are normal. Mild distal quadriceps tendinopathy without tear. Patellar tendon is normal. The visualized medial and lateral hamstring tendons as well as the iliotibial band are normal. Fluid: Physiologic amount of fluid in the joint space. Small heterotopic ossicle likely in the posterior superficial suprapatellar fat pad along the cephalad margin of the patella. No loose osteochondral bodies Osseous/other: No fracture or pathologic marrow replacing process. IMPRESSION: 1. Complex medial meniscal tear. 2. 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 Reviewed, dictated and finalized at location A. UCT REPRESENTATIVE IMPRESSION: 1. Complex medial meniscal tear. 2. 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
== END 2025-03-12 12:54 | disposition home or self-care (01) ==
LOC: MICIMG 12:54
PROVIDERS: PCP Internal Medicine; Visit Provider Orthopaedic Surgery
DX: S83.232A Complex tear of medial meniscus, current injury, left knee, initial encounter (principal); X58.XXXA Exposure to other specified factors, initial encounter; M17.12 Unilateral primary osteoarthritis, left knee
CPT/HCPCS: 73721